=== PATIENT | male | born 1980 | race Caucasian/White ===

== ENCOUNTER 2021-08-18 19:23 | Inpatient (IN) | payer MEDICARE, SELFPAY ==
--- NOTE | ~2021-08-18 | CT_ITS ---
EXAMINATION: CT abdomen pelvis w con DATE: 08/18/2021 23:06 INDICATION: Abdominal pain TECHNIQUE: Computed tomography (CT) of the abdomen and pelvis was performed with 100 mL Omnipaque-350 intravenous contrast. Automated exposure control and iterative reconstruction technique were employe d. The dose-length product was 218.50 mGy-cm. COMPARISON: None FINDINGS: Lung bases are clear. Heart size is normal. No pericardial or pleural effusion. Layering fluid and de bris within either a moderate-sized sliding-type hiatal hernia or patulous distal esophagus. There is a small amount of surrounding ascites. There are some surgical clips along the intrathoracic stomach which is relatively decompressed. There is marked dilation of the colon proximal to the splenic flex ure which measures up to 13 cm in diameter. There is relatively abrupt transition near the level of t he caudal aspect of the spleen. There is however mild gaseous distention of the more distal colon whi ch appears shorter than typical suggesting prior partial colectomy/sigmoidectomy with anastomotic sut ure line. Small bowel is relatively decompressed. No pneumatosis, abscess or free intraperineal gas. The distended colon exerts mass effect upon the otherwise unremarkable liver and spleen. Multiple gal lstones within the gallbladder. Pancreas is unremarkable. 3.7 similar exophytic cyst at the upper shi e of the left kidney. Right kidney and bilateral adrenal glands are unremarkable. Bladder is normal. There is diffuse mild body wall and mesenteric edema. Mild likely physiologic anterior wedging at T11 and T12. Mild thoracic spondylosis. Small region of osteonecrosis at the anterosuperior left femoral head with more extensive osteonecrosis the anterosuperior and superior aspect of the right femoral h ead. IMPRESSION: 1. Prominent gaseous distention of the proximal to mid colon with relatively abrupt transition point at the proximal descending colon which raises concern for obstruction. Differential would include Ogi lvie syndrome. 2. Fluid and debris within either a moderate-sized sliding-type hiatal hernia versus patulous distal esophagus with small amount of surrounding ascites. 3. Cholelithiasis. Reviewed, dictated and finalized at location H. [employer] IMPRESSION: 1. Prominent gaseous distention of the proximal to mid colon with relatively ab rupt transition point at the proximal descending colon which raises concern for obstruction. Differential would include [place] syndrome. 2. Fluid and debris within either a moderate-sized sliding-type hiatal hernia v ersus patulous distal esophagus with small amount of surrounding ascites. 3. Cholelithiasis.
--- NOTE | ~2021-08-18 | XR_ITS ---
EXAMINATION: XR enema water soluble DATE: 08/19/2021 09:01 INDICATION: Obstruction of descending colon. TECHNIQUE: A displayer radiograph was obtained. A catheter was inserted into the patient's rectum. Contra st was infused by gravity. Fluoroscopic spot images and conventional radiographs were obtained. Fluor oscopy exposure time was 0.3 minutes. The total number of images was 27. COMPARISON: CT abdomen and pelvis 08/18/2021 FINDINGS: There is a focal stricture of the sigmoid colon. The colon is severely dilated proximal to the stricture. Contrast is able to pass the stricture. IMPRESSION: 1. Sigmoid volvulus. Reviewed, dictated and finalized at location A. [employer] IMPRESSION: 1. Sigmoid volvulus.
[2021-08-18 19:29] VITALS: BP 128/82; PULSE 66; RESP 16; TEMP 36.8; O2SAT 100
[2021-08-18 20:51] VITALS: BP 133/82; PULSE 88; RESP 20; O2SAT 100
--- NOTE | 2021-08-18 21:41 | ED.ABDPAIN ---
HPI - Abdominal Pain General Chief Complaint: Abdominal Pain Stated Complaint: abd pain Time Seen by Provider: 08/18/21 21:02 Source: patient and family (Mother) Mode of arrival: ambulatory Limitations: no limitations History of Present Illness HPI narrative: Patient is a 41-year-old male complaining of abdominal pain, 5 out of 10, lower abdominal area, dull aching, nonradiating accompanied by abdominal distention and nausea started today. Mother states that the patient has a history of bowel obstruction in the past. Last bowel movement was this morning. Patient denies any chest pain, shortness of breath, vomiting, diarrhea, urinary symptoms, fever or chills. Related Data Allergies Allergy/AdvReac Type Severity Reaction Status Date / Time No Known Allergies Allergy Unknown Verified 08/18/21 19:34 Review of Systems Review of Systems: All systems reviewed & are unremarkable except as noted in HPI and below Constitutional: Constitutional: Denies body ache(s), Denies chills, Denies excessive sweating, Denies fatigue, Denies fever(s), Denies headache(s), Denies lethargy, Denies malaise, Denies weakness and Denies weight loss Eyes: Eyes: Denies blurry vision, Denies change in vision and Denies loss of vision ENT: Denies dizziness, Denies ear discharge, Denies headache(s), Denies lip swelling, Denies epistaxis, Denies nasal congestion, Denies neck pain, Denies throat swelling and Denies tongue swelling Cardiovascular: Cardiovascular: Denies chest pain, Denies chest pain at rest, Denies chest pain with activity, Denies diaphoresis, Denies rapid heart rate, Denies edema, Denies irregular heart rhythm, Denies lightheadedness, Denies palpitations, Denies dyspnea and Denies dyspnea on exertion Respiratory: Respiratory: Denies chest congestion, Denies cough, Denies hemoptysis, Denies dyspnea and Denies dyspnea on exertion Gastrointestinal: Gastrointestinal: Denies melena, Denies hematochezia, Denies diarrhea, Denies vomiting and Denies hematemesis Musculoskeletal: Musculoskeletal: Denies abnormal gait, Denies deformity, Denies joint swelling, Denies limited range of motion, Denies neck pain and Denies numbness Neurologic: Denies Abnormal speech present, Denies abnormal gait, Denies confusion, Denies dizziness, Denies headache(s), Denies focal weakness, Denies loss of vision, Denies numbness, Denies Other visual disturbances, Denies Sensory deficit (Neuro) and Denies weakness Psychiatric: Psychiatric: Denies confusion, Denies depression, Denies auditory hallucinations, Denies homicidal ideation and Denies suicidal ideation Endocrine: Endocrine: Denies cold intolerance, Denies excessive sweating, Denies fatigue, Denies heat intolerance and Denies palpitations Hematologic/Lymphatic: Hematologic/Lymphatic: Denies easy bleeding and Denies easy bruising Allergic/Immunologic: Allergic/Immunologic: Denies lip swelling, Denies throat swelling and Denies tongue swelling PMFSH Comments Past medical history: Autism, obstruction Family history: None Social history: Non-smoker no EtOH or drug use Course Course Emergency Course: Patient reexamined at 12:30 AM, states that his pain is resolved. Denies any nausea or vomiting. Vital Signs Vital signs: Vital Signs Temperature 36.8 C 08/18/21 19:29 Pulse Rate 66 08/18/21 19:29 Respiratory Rate 16 08/18/21 19:29 Blood Pressure 128/82 08/18/21 19:29 Pulse Oximetry 100 08/18/21 19:29 Temperature 36.8 C 08/18/21 19:29 Pulse Rate 95 08/18/21 23:08 Respiratory Rate 20 08/18/21 23:08 Blood Pressure 127/79 08/18/21 23:08 Pulse Oximetry 100 08/18/21 23:08 MDM - Abdominal Pain MDM Narrative Medical decision making narrative: I reviewed his labs and his CT scan of abdomen pelvis. CBC within normal limits. Chemistry within normal limits except for slightly elevated lipase of 343. CT scan:IMPRESSION: 1. Prominent gaseous distention of the proximal to mid colon with relative
[2021-08-18 21:53] LABS: Basophils Percent Auto 0.2 % (0.2-1.2); Eosinophils Percent Auto 0.1 % (0-4.4); Hematocrit 36.4 % (42.0-52.0); Hemoglobin 12.2 g/dL (14.0-18.0); Immature Granulocyte Absolute 0.03 K/mm3 (0.00-0.031); Immature Granulocyte Percent A 0.3 % (0-0.5); Lymphocytes Absolute Auto 0.77 K/mm3 (0.9-3.2); Lymphocytes Percent Auto 8.4 % (18.3-44.2); Mean Corpuscular HGB Conc 33.5 g/dl (32-36); Mean Corpuscular Hemoglobin 30.5 pg (26-34); Mean Platelet Volume 10.2 fl (7.4-10.4); Monocytes Absolute Auto 0.5 K/mm3 (0.1-0.6); Monocytes Percent Auto 5.5 % (2.6-8.5); Neutrophils Absolute Auto 7.8 K/mm3 (1.3-6.7); Neutrophils Percent Auto 85.5 % (45.5-73.1); Platelet Count Result 206 k/mm3 (150-375); Red Cell Distribution Width 13.7 % (11.5-14.5); White Blood Count 9.1 K/mm3 (4.5-10.0)
[2021-08-18 22:04] VITALS: BP 131/72; PULSE 87; RESP 20; O2SAT 100
[2021-08-18] MEDS: SODIUM CHLORIDE 0.9% IV 1,000 ML 999 ML IV CONT (22:04)
[2021-08-18 22:07] LABS: Lactic Acid Reflex 1.1 mmol/L (0.7-2.1)
[2021-08-18 22:08] LABS: Alanine Aminotransferase 13 U/L (4-50); Albumin Level 4.5 g/dL (3.5-5.1); Alkaline Phosphatase 65 U/L (38-126); Anion Gap 8 mmol/L (8-16); Aspartate Amino Transferase 23 U/L (17-59); Bilirubin,Total 0.7 mg/dL (0.2-1.3); Blood Urea Nitrogen 14 mg/dL (9-20); Calcium 9.3 mg/dL (8.4-10.2); Carbon Dioxide 26 mmol/L (22-30); Chloride 99 mmol/L (98-107); Estimated CRCL calculation 72 ml/min; Estimated Glomerular Filt Rate > 60; Glucose 127 mg/dL (65-110); Lipase 343 U/L (23-300); Potassium 3.7 mmol/L (3.4-5.0); Sodium 133 mmol/L (137-145)
[2021-08-18 23:08] VITALS: BP 127/79; PULSE 95; RESP 20; O2SAT 100
[2021-08-18] MEDS: MORPHINE SULFATE (*CRX) 2 MG/ML INJ IV PUSH (23:09)
[2021-08-18] MEDS: PROMETHAZINE HCL 25 MG/ML AMPUL 12.5 MG IV PUSH (23:13)
[2021-08-19] VITALS (8 sets, daily range): BP systolic 92–134; BP diastolic 52–86; PULSE 66–103; RESP 15–20; TEMP 36.7–37.1; O2SAT 96–100; BMI 20.9
[2021-08-19] MEDS: LACTATED RINGERS 1,000 ML 125 ML IV CONT ×2 (01:28→11:43)
[2021-08-19 01:42] LABS: Add Urine Microscopic? YES; Appearance Urine Clear (Clear); Bilirubin Urine Negative (Negative); Blood Urine Negative (Negative); Color Urine Straw (Yellow); Glucose Urine UA Negative (Negative); Ketones Urine Trace mg/dL (Negative); Leukocyte Esterase Ur Negative LEU/UL (Negative); Mucus Urine Rare /lpf; Nitrate Urine Negative (Negative); Protein Urine Negative (Negative); RBC Urine 0-2 /hpf (0-2); Specific Grav Ur 1.026 (1.001-1.035); Squamous Epithelial Cell Urine Occasional /hpf (Few); Urobilinogen Urine Negative mg/dL (<2.0); WBC Urine 0-3 /hpf
--- NOTE | 2021-08-19 03:33 | PM.IMHP ---
H&P: HPI History of Present Illness Date/Time: 08/19/21 03:33 Chief Complaint: Abdominal pain Narrative: 41-year-old male with a past medical history of mild schizophrenia, autism spectrum disorder and prior esophageal surgeries and large bowel resection due to recurrent obstructions who presented to the ER from home due to abdominal pain. The patient reports that the pain started in the left lower abdomen and was a 5/10 in intensity. Pain was dull and aching in nature and did not radiate. It was accompanied by a couple of hours of proceeding abdominal distension. The pain is now down to a 1/10 in intensity. He denies any eliciting or relieving factors. He did have some nausea that occurred after he arrived to the ER but no active vomiting. His last bowel movement was on the morning of the and was normally formed without hematochezia or melena. He does take MiraLax and a daily fiber supplement to help maintain regular bowel movements. He does have frequent dyspepsia and takes [id number] Tagamet. His sister reports that the patient has been requesting Tums more frequently in recent months. Sister also reports that the patient has had gradual weight loss over the last couple of years. Since the onset of COVID and with family staying at home they have eliminated a lot of fast food and junk food from their diet. She reports that she brought her brother in when his abdomen went from relatively skinny appearance to being quite distended. Has not taken any medications for abdominal pain prior to coming to the hospital. He does feel somewhat short of breath due to his abdominal distension. He reports decreased urine output today but denies dysuria or hematuria. He has had difficulty with intermittent episodes of bloating. They had bought some Beano but had not started using the supplement. He has not had any cough, congestion, fevers or chills. He received his [employer] COVID booster in June. I did received permission for patient to discuss his care with his sister who is at bedside. The patient has lived with his sister and her since his mother several years ago. Patient does have chronically bad teeth with multiple dental caries. He is reluctant to go to a dentist. He has not seen a primary care physician in several years intakes elevates medications [id number]. He has a distant history of having cellulitis of his lower extremities. He has chronic lower extremity swelling that appears to be consistent with lymphedema. Review of Systems Review of Systems: 12 systems were reviewed with pertinent positives and negatives per HPI. Except as documented in the HPI, all other systems were reviewed and are negative. [facility] Past Medical History Medical History (Updated 08/19/21 @ 03:59 by Dorothy Camarena DO) Autism spectrum disorder Hiatal hernia with GERD Large bowel obstruction With what sounds like with due to volvulus Lymphedema of both lower extremities Schizophrenia Surgical History Surgical History (Updated 08/19/21 @ 03:49 by Dorothy Camarena DO) History of esophageal surgery (~2004) History of resection of large bowel (~2014) Family History Family History Mother , At age 69 CHF (congestive heart failure) Acute myocardial infarction Father , At age 53 Acute myocardial infarction Diabetes mellitus Social History Social History (Updated 08/19/21 @ 03:53 by Dorothy Camarena DO) Social History: He lives with his sister and [id number]. He has never been . He does not work and is on SSD. He is a lifelong nonsmoker and does not drink alcohol. Primary care physician: None Code status: Full code Surrogate decision maker: Sister Smoking status: Never smoker Alcohol intake: never Substance use: never Meds Home Medications and Allergies Home Medications Medication Instruc
--- NOTE | 2021-08-19 04:28 | ADMGEN ---
This patient, Jw Mccauley, was admitted to [facility] Surg Room 330-01. Patient/family oriented to hospital policies and general routines including ID bracelet, bed and alarms, visiting hours, pain management, procedures, bathroom and other care routines, personal items, smoking policy, room service/diet, and visiting hours. Information on how to activate the Rapid Response Team has been discussed. Patient/Family are encouraged to report perceived risks to care and to ask questions if they do not understand what they are told or what they should do.
[2021-08-19] MEDS: HYDROmorphone HCL INJ (*CRX) 1 MG/ML SYR 0.5 MG IV PUSH ×2 (05:54→10:33)
--- NOTE | 2021-08-19 07:21 | WPDGICN ---
Assessment and Plan Assessment and plan (1) Bowel obstruction: Qualifiers: Intestinal obstruction extent: unspecified extent Intestinal obstruction type: unspecified Qualified Code(s): K56.609 - Unspecified intestinal obstruction, unspecified as to partial versus complete obstruction Code(s): K56.609 - Unspecified intestinal obstruction, unspecified as to partial versus complete obstruction Status: Acute Assessment and Plan: CT scan it appears that he has a high-grade obstruction in the proximal descending colon. This would be an atypical location for a volvulus. It is surprising however that it came on rather acutely. He would probably benefit from Hypaque enema. It would be difficult to prepare him for colonoscopy, except with enemas (2) Hiatal hernia with GERD: Code(s): K44.9 - Diaphragmatic hernia without obstruction or gangrene; K21.9 - Gastro-esophageal reflux disease without esophagitis Status: Acute Assessment and Plan: we do not know the exact details of what was done but apparently he had a hiatal hernia repair. (3) Autism spectrum disorder: Code(s): F84.0 - Autistic disorder Status: Acute Assessment and Plan: He seems well adjusted effect is cognizant of his impairment, describing to me that it is hard for him to remember details due to his autism GI Consult Note Consult date/time: 08/19/21 07:21 HPI: wJ Mccauley is a 41 year old male who was admitted through the emergency room with suspected intestinal obstruction. He has a history of having had prior surgery on his colon, resection apparently due to some sort of obstruction. The patient states that he cannot recall the exact reason. He recalls that date precisely when he went into the hospital in November 2014 though not the details as to what were the diagnoses. His history rambles. he describes that day with familiarity, as his [id number] having had to leave town for a meeting.... He cannot recall having difficulty with bowel movements. According to the record however he does take MiraLax daily. He knows that he takes an antacid every day. He apparently did have a bowel movement yesterday morning according to the medical record with that history having been obtained from his sister. He does live with his sister due to his disability having autism and mild schizophrenia. He in fact point out to me that he has a tough time describing details because of his autism. He was eager to show me his poor dentition and the lymphedema is right lower extremity. He cannot recall however exactly what was wrong with his esophagus and whether or not he definitely had surgery for that Review of Systems Cardiovascular: Cardiovascular: Reports no additional cardiovascular complaints Comments: he states he does not have chest pain but that he was told that there might be something wrong with his heart Respiratory: Respiratory: Reports no additional respiratory complaints Gastrointestinal: Gastrointestinal: Reports as per [facility] Past Medical History Medical History (Updated 08/19/21 @ 07:27 by Chalo Nelson MD) Autism spectrum disorder Hiatal hernia with GERD Large bowel obstruction With what sounds like with due to volvulus Lymphedema of both lower extremities Schizophrenia Surgical History Surgical History History of esophageal surgery (~2004) History of resection of large bowel (~2014) Family History Family History Mother , At age 69 CHF (congestive heart failure) Acute myocardial infarction Father , At age 53 Acute myocardial infarction Diabetes mellitus Social History Social History Social History: He lives with his sister and [id number]. He has never been . He does not work and is on
[2021-08-19] MEDS: PANTOPRAZOLE SODIUM IV 40 MG VIAL IV PUSH ×2 (09:38→22:57)
[2021-08-19] MEDS: LACTATED RINGERS 1,000 ML 150 ML IV CONT (12:52)
--- NOTE | 2021-08-19 13:00 | PC.NURSE ---
To GI Lab per THADDEUS alva RAC. Report given to Treva FERNANDEZ.
--- NOTE | 2021-08-19 13:00 | PM.CNGS ---
Assessment and Plan Assessment and plan (1) Sigmoid volvulus: Code(s): K56.2 - Volvulus Status: Acute Assessment and Plan: I have reviewed the CT and Hypaque enema images. I discussed the findings with the patient and his sister. He has evidence of a sigmoid volvulus. This is apparently where he had a volvulus in the past as well and also had a resection for. I discussed his plan of care with Dr. Nelson and will plan to attempt endoscopic detorsion to allow for decompression of the obstructed colon. If this is successful, then we may be able to slowly prep the patient over the next couple days and perform a sigmoid colon resection. There is also the option of detorsion of the bowel and then allowing patient to gradually advance his diet and discharge home, but this may be risk for recurrent volvulus. If endoscopic detorsion is unsuccessful then he will most likely require emergent surgery. Will await endoscopic results and discuss further with patient and his sister about further treatment. I already discussed with them that repeat surgery will be more difficult due to the fact that he has already had this performed once the same disease process. (2) Autism spectrum disorder: Code(s): F84.0 - Autistic disorder Status: Acute History of Present Illness Consult details Consult date: 08/19/21 Reason for consult: abdominal pain Requesting physician: Mikhail Casas MD Narrative: This is a 41-year-old man who I am asked to see for a possible bowel obstruction. He presented to the emergency department overnight with. The acute onset of abdominal pain and bloating. He has noticed some slight progressive bloating over the past several days. He did have a bowel movement yesterday afternoon, but he states this was not very large. He denies any fevers chills. He has had some nausea but no vomiting. The patient has had symptoms like this in the past. In 2014 he was found to have a sigmoid volvulus and endoscopic detorsion was performed several times but then he eventually required surgical resection. The surgery was performed at [facility]. He also has history an esophageal surgery. He does not appear to have had any significant problems since 2014 until now. The patient has autism is well-functioning and able to give a fairly accurate history. His sister was available in the room to discuss history as well. Review of Systems Review of Systems: All systems reviewed & are unremarkable except as noted in HPI and below Constitutional: Constitutional: Denies chills and Denies fever(s) Eyes: Eyes: Denies change in vision ENT: Denies hearing loss, Denies neck pain and Denies sore throat Cardiovascular: Cardiovascular: Denies chest pain and Denies dyspnea Respiratory: Respiratory: Denies cough, Denies dyspnea and Denies wheezing Gastrointestinal: Gastrointestinal: Reports as per HPI Genitourinary: Genitourinary: Denies hematuria and Denies dysuria Musculoskeletal: Musculoskeletal: Denies arthralgias, Denies joint swelling and Denies neck pain Allergic/Immunologic: Allergic/Immunologic: Denies wheezing PMFSH Past Medical History Medical History Autism spectrum disorder Hiatal hernia with GERD Large bowel obstruction With what sounds like with due to volvulus Lymphedema of both lower extremities Schizophrenia Surgical History Surgical History History of esophageal surgery (~2004) History of resection of large bowel (~2014) Family History Family History Mother , At age 69 CHF (congestive heart failure) Acute myocardial infarction Father , At age 53 Acute myocardial infarction Diabetes mellitus Social History Social History Social Histo
--- NOTE | 2021-08-19 13:46 | WPDANESEPPF ---
Anes - Initial Pre Proc Eval Procedure: Operation Date: 08/19/21 13:00 Proposed Procedures p Colonoscopy - Chalo Nelson MD Date/Time: 08/19/21 13:46 Surgeon: Dorothy Camarena DO Pre Op Diagnosis: Bowel Obstruction Patient Data Age: 41 Gender: M Height: 1.73 m Weight: 62.5 kg Last Vital Signs Temp 98.7 F 08/19/21 12:50 Pulse 80 08/19/21 12:50 Resp 18 08/19/21 12:50 BP 134/76 08/19/21 12:50 Pulse Ox 100 08/19/21 12:50 Allergies Allergy/AdvReac Type Severity Reaction Status Date / Time No Known Allergies Allergy Unknown Verified 08/19/21 12:49 Home Medications Medication Instructions Recorded Confirmed Type dextrin 3 g PO BID 08/19/21 08/19/21 History polyethylene glycol 3350 [Miralax] 17 g PO BID 08/19/21 08/19/21 History Laboratory Tests 08/18/21 08/18/21 08/18/21 21:47 21:47 21:47 WBC 9.1 K/mm3 K/mm3 (4.5-10.0) RBC 4.00 M/mm3 L M/mm3 (4.6-6.20) Hgb 12.2 g/dL L g/dL (14.0-18.0) Hct 36.4 % L % (42.0-52.0) MCV 91.0 fl fl (80-100) MCH 30.5 pg pg (26-34) MCHC 33.5 g/dl g/dl (32-36) RDW 13.7 % % (11.5-14.5) Plt Count 206 k/mm3 k/mm3 (150-375) MPV 10.2 fl fl (7.4-10.4) Immature Gran % (Auto) 0.3 % % (0-0.5) Neut % (Auto) 85.5 % H % (45.5-73.1) Lymph % (Auto) 8.4 % L % (18.3-44.2) Osborne % (Auto) 5.5 % % (2.6-8.5) Eos % (Auto) 0.1 % % (0-4.4) Baso % (Auto) 0.2 % % (0.2-1.2) Lymph # (Auto) 0.77 K/mm3 L K/mm3 (0.9-3.2) Osborne # (Auto) 0.5 K/mm3 K/mm3 (0.1-0.6) Eos # (Auto) 0.0 K/mm3 K/mm3 (0-0.3) Baso # (Auto) 0.0 K/mm3 K/mm3 (0.0-0.1) Abs Immat Gran (auto) 0.03 K/mm3 K/mm3 (0.00-0.031) Absolute Neuts (auto) 7.8 K/mm3 H K/mm3 (1.3-6.7) Absolute Nucleated RBC 0.0 K/mm3 K/mm3 (0.0-0.012) Nucleated RBC % 0.0 % % (0.0-0.2) Sodium 133 mmol/L L mmol/L (137-145) Potassium 3.7 mmol/L mmol/L (3.4-5.0) Chloride 99 mmol/L mmol/L (98-107) Carbon Dioxide 26 mmol/L mmol/L (22-30) Anion Gap 8 mmol/L mmol/L (8-16) BUN 14 mg/dL mg/dL (9-20) Creatinine 0.90 mg/dL mg/dL (0.7-1.3) Estim Creat Clear Calc 72 ml/min ml/min Estimated GFR > 60 (59 - ) Glucose 127 mg/dL H mg/dL (65-110) Lactic Acid 1.1 mmol/L mmol/L (0.7-2.1) Calcium 9.3 mg/dL mg/dL (8.4-10.2) Total Bilirubin 0.7 mg/dL mg/dL (0.2-1.3) AST 23 U/L U/L (17-59) ALT 13 U/L U/L (4-50) Alkaline Phosphatase 65 U/L U/L (38-126) Total Protein 8.0 g/dL g/dL (6.3-8.2) Albumin 4.5 g/dL g/dL (3.5-5.1) Lipase 343 U/L H U/L (23-300) Urine Color Urine Appearance Urine pH Ur Specific [place] Urine Protein Urine Glucose (UA) Urine Ketones Ur Blood (Man) Urine Nitrate Urine Bilirubin Urine Urobilinogen Leukocyte Esterase Rfl Urine RBC Urine WBC Ur Squamous Epith Cells Urine Mucus 08/19/21 01:32 WBC RBC Hgb Hct MCV MCH MCHC RDW Plt Count MPV Immature Gran % (Auto) Neut % (Auto) Lymph % (Auto) Osborne % (Auto) Eos % (Auto) Baso % (Auto) Lymph # (Auto) Osborne # (Auto) Eos # (Auto) Baso # (Auto) Abs Immat Gran (auto) Absolute Neuts (auto) Absolute Nucleated RBC Nucleated RBC % Sodium Potassium Chloride Carbon Dioxide Anion Gap BUN Creatinine Estim Creat Clear Calc
--- NOTE | 2021-08-19 15:17 | PC.NURSE ---
Returned from OR per stretcher . Report received.
[2021-08-20] MEDS: LACTATED RINGERS 1,000 ML 125 ML IV CONT ×2 (01:30→11:32)
[2021-08-20 06:00] VITALS: BP 123/60; PULSE 73; RESP 18; TEMP 36.4; O2SAT 96
[2021-08-20 06:45] LABS: Hematocrit 32.9 % (42.0-52.0); Hemoglobin 11.3 g/dL (14.0-18.0); Mean Corpuscular HGB Conc 34.3 g/dl (32-36); Mean Corpuscular Hemoglobin 30.5 pg (26-34); Mean Corpuscular Volume 88.9 fl (80-100); Mean Platelet Volume 10.6 fl (7.4-10.4); Platelet Count Result 194 k/mm3 (150-375); Red Cell Distribution Width 13.4 % (11.5-14.5); White Blood Count 6.1 K/mm3 (4.5-10.0)
[2021-08-20 07:01] LABS: Alanine Aminotransferase 9 U/L (4-50); Albumin Level 3.3 g/dL (3.5-5.1); Alkaline Phosphatase 50 U/L (38-126); Anion Gap 8 mmol/L (8-16); Aspartate Amino Transferase 20 U/L (17-59); Blood Urea Nitrogen 9 mg/dL (9-20); Calcium 8.5 mg/dL (8.4-10.2); Carbon Dioxide 26 mmol/L (22-30); Chloride 102 mmol/L (98-107); Estimated CRCL calculation 92 ml/min; Estimated Glomerular Filt Rate > 60; Glucose 86 mg/dL (65-110); Potassium 3.2 mmol/L (3.4-5.0); Sodium 136 mmol/L (137-145)
[2021-08-20] MEDS: PANTOPRAZOLE SODIUM IV 40 MG VIAL IV PUSH (09:11)
--- NOTE | 2021-08-20 11:01 | PM.PNGS ---
Progress Note: A&P Assessment and Plan (1) Sigmoid volvulus: Code(s): K56.2 - Volvulus Status: Acute Assessment and Plan: Volvulus resolved with endoscopic detorsion. Discussed with patient and sister that repeat surgery will ultimately be recommended. Patient and sister would like to think about options before definitely making decision. Options include surgery during this hospitalization or early follow up for surgery in the next couple weeks. He could also follow up at [facility] where he had his previous surgery if they would prefer. (2) Autism spectrum disorder: Code(s): F84.0 - Autistic disorder Status: Acute Subjective Subjective Date/Time Seen: 08/20/21 11:01 Interval history: Doing well today. Tolerating clears. Bowels moving and passing flatus. No abdominal pain. Exam GI: Inspection: other (much less distended) GI Palp: Yes Soft to palpation, No Tenderness to palpation present (GI) and No Guarding due to palpation present (GI) Auscultation: normal bowel sounds Objective Data Vital Signs Vital Signs: Vital Signs - 24 hr 08/19/21 12:50 08/19/21 14:23 08/19/21 14:33 Temperature 37.1 C Pulse Rate 80 71 79 Respiratory Rate 18 18 16 Blood Pressure 134/76 92/52 L 94/58 L Pulse Oximetry 100 96 98 08/19/21 14:43 08/19/21 22:00 08/20/21 06:00 Temperature 36.7 C 36.4 C L Pulse Rate 77 66 73 Respiratory Rate 15 18 18 Blood Pressure 105/64 116/66 123/60 Pulse Oximetry 100 100 96 Intake/Output Intake/Output: Intake & Output 08/17/21 08/18/21 08/19/21 08/20/21 23:59 23:59 23:59 23:59 Intake Total 1000 2450 660 Balance 1000 2450 660 Meds/Results Medications: Active Medications Generic Name Dose Route Start Last Admin Trade Name Freq PRN Reason Stop Dose Admin Hydromorphone HCl 0.5 mg 08/19/21 01:01 08/19/21 10:33 Hydromorphone Hcl Inj (*Crx) 1 Mg/Ml Syr IV PUSH 0.5 mg Q4H PRN Administration Pain Rated 7-10 Lactated Ringer's 1,000 mls @ 125 mls/hr 08/19/21 01:05 08/20/21 01:30 Lr - Lactated Ringers Iv IV CONT 125 mls/hr .Q8H ELLA Administration Ondansetron HCl 4 mg 08/19/21 01:01 Ondansetron Inj 4 Mg/2 Ml Vial IV PUSH Q4H PRN Nausea Pantoprazole Sodium 40 mg 08/19/21 09:00 08/20/21 09:11 Pantoprazole Sodium Iv 40 Mg Vial IV PUSH 40 mg Q12HR ELLA Administration Radiology Results: ITS Impressions Abdomen/Pelvis CT 08/18/21 23:13 IMPRESSION: 1. Prominent gaseous distention of the proximal to mid colon with relatively abrupt transition point at the proximal descending colon which raises concern for obstruction. Differential would include [place] syndrome. 2. Fluid and debris within either a moderate-sized sliding-type hiatal hernia versus patulous distal esophagus with small amount of surrounding ascites. 3. Cholelithiasis. Enema w/Water Soluble 08/19/21 09:07 IMPRESSION: 1. Sigmoid volvulus. Labs Labs: Laboratory Results - last 24 hr 08/20/21 08/20/21 05:51 05:51 WBC 6.1 RBC 3.70 L Hgb 11.3 L Hct 32.9 L MCV 88.9 MCH 30.5 MCHC 34.3 RDW 13.4 Plt Count 194 MPV 10.6 H Sodium 136 L Potassium 3.2 L Chloride 102 Carbon Dioxide 26 Anion Gap 8 BUN 9 D Creatinine 0.80 Estim Creat Clear Calc 92 Estimated GFR > 60 Glucose 86 Calcium 8.5 Total Bilirubin 1.0 AST 20 ALT 9 Alkaline Phosphatase 50 Total Protein 6.0 L Albumin 3.3 L Quality VTE Prophylaxis VTE prophylaxis: mechanical ordered
[2021-08-20] MEDS: ERYTHROMYCIN 250 MG TABLET 1000 MG PO ×2 (13:49→15:49)
[2021-08-20 14:00] VITALS: BP 122/75; PULSE 70; RESP 14; O2SAT 100
[2021-08-20] MEDS: NEOMYCIN SULFATE 500 MG TAB 1000 MG PO ×2 (15:48→19:49)
--- NOTE | 2021-08-20 17:42 | PM.IMPN ---
Progress Note: A&P Assessment and Plan (1) Bowel obstruction: Qualifiers: Intestinal obstruction extent: unspecified extent Intestinal obstruction type: unspecified Qualified Code(s): K56.609 - Unspecified intestinal obstruction, unspecified as to partial versus complete obstruction Code(s): K56.609 - Unspecified intestinal obstruction, unspecified as to partial versus complete obstruction Status: Acute (2) Hiatal hernia with GERD: Code(s): K44.9 - Diaphragmatic hernia without obstruction or gangrene; K21.9 - Gastro-esophageal reflux disease without esophagitis Status: Acute Additional Plan The patient has obstruction of the large intestine. He is currently NPO and on IV fluids. General surgery and Gastroenterology have been consulted. The patient does have evidence of a hiatal hernia and has a history of prior esophageal surgery. Sounds as if he has had increasing frequency of GERD symptoms. Will place patient on Protonix IV b.i.d.. Patient has been admitted as observation status. Subjective Date/time seen: 08/20/21 17:42 Interval history: I agree with current assessment and plan. Will continue to monitor. Objective Data Vital Signs Vital Signs: Vital Signs - 24 hr 08/19/21 22:00 08/20/21 06:00 Temperature 36.7 C 36.4 C L Pulse Rate 66 73 Respiratory Rate 18 18 Blood Pressure 116/66 123/60 Pulse Oximetry 100 96 Intake/Output Intake/Output: Intake & Output 08/17/21 08/18/21 08/19/21 08/20/21 23:59 23:59 23:59 23:59 Intake Total 1000 2450 1660 Balance 1000 2450 1660 Meds/Results Medications: Active Medications Generic Name Dose Route Start Last Admin Trade Name Freq PRN Reason Stop Dose Admin Bisacodyl 10 mg 08/21/21 14:00 Bisacodyl 5 Mg Tablet Ec PO 08/21/21 14:01 ONCE ONE Erythromycin 1,000 mg 08/20/21 14:00 08/20/21 15:49 Erythromycin 250 Mg Tablet PO 08/21/21 00:01 1,000 mg TID@00,14,15 ELLA Administration Hydromorphone HCl 0.5 mg 08/19/21 01:01 08/19/21 10:33 Hydromorphone Hcl Inj (*Crx) 1 Mg/Ml Syr IV PUSH 0.5 mg Q4H PRN Administration Pain Rated 7-10 Lactated Ringer's 1,000 mls @ 125 mls/hr 08/19/21 01:05 08/20/21 11:32 Lr - Lactated Ringers Iv IV CONT 125 mls/hr .Q8H ELLA Administration Lactated Ringer's 1,000 mls @ 80 mls/hr 08/21/21 07:00 Lr - Lactated Ringers Iv IV CONT .[id number] ELLA Metronidazole 500 mg in 100 mls @ 100 mls/hr 08/21/21 14:00 Flagyl 500 Mg/Iso Soln 100 Ml IVPB 08/21/21 14:59 ONCE ONE Cefazolin Sodium 2 gm in 50 mls @ 100 mls/hr 08/21/21 14:00 Ancef 2 Gm/D5w 50 Ml IVPB 08/21/21 14:29 ONCE ONE Neomycin Sulfate 1,000 mg 08/20/21 14:00 08/20/21 15:48 Neomycin Sulfate 500 Mg Tab PO 08/21/21 00:01 1,000 mg TID@00,14,15 ELLA Administration Ondansetron HCl 4 mg 08/19/21 01:01 Ondansetron Inj 4 Mg/2 Ml Vial IV PUSH Q4H PRN Nausea Pantoprazole Sodium 40 mg 08/19/21 09:00 08/20/21 09:11 Pantoprazole Sodium Iv 40 Mg Vial IV PUSH 40 mg Q12HR ELLA Administration Radiology Results: ITS Impressions Abdomen/Pelvis CT 08/18/21 23:13 IMPRESSION: 1. Prominent gaseous distention of the proximal to mid colon with relatively abrupt transition point at the proximal descending colon which raises concern for obstruction. Differential would include Greg syndrome. 2. Fluid and debris within either a moderate-sized sliding-type hiatal hernia versus patulous distal esophagus with small amount of surrounding ascites. 3. Cholelithiasis. Enema w/Water Soluble 08/19/21 09:07 IMPRESSION: 1. Sigmoid volvulus. Labs Labs: Laboratory Results - last 24 hr 08/20/21 08/20/21 05:51 05:51 WBC 6.1 RBC 3.70 L Hgb 11.3 L Hct 32.9 L MCV 88.9 MCH 30.5 MCHC 34.3 RDW 13.4 Plt Count 194 MPV 10.6 H Sodium 136 L Potassium 3.2 L Chloride 102 Carbon Dioxide 26 Anion Gap 8 BUN 9 D Creati
[2021-08-20] MEDS: polyethylene glycoL 3350 238 GM BOTTLE PO (18:43)
[2021-08-20 22:00] VITALS: BP 121/77; PULSE 74; RESP 18; TEMP 36.3; O2SAT 100
[2021-08-21] VITALS (11 sets, daily range): BP systolic 99–126; BP diastolic 62–89; PULSE 44–84; RESP 12–18; TEMP 36.2–36.8; O2SAT 96–100
[2021-08-21] MEDS: ERYTHROMYCIN 250 MG TABLET 500 MG PO (00:57)
[2021-08-21] MEDS: NEOMYCIN SULFATE 500 MG TAB 1000 MG PO (00:57)
[2021-08-21] MEDS: PANTOPRAZOLE SODIUM IV 40 MG VIAL IV PUSH ×2 (00:57→20:31)
[2021-08-21] MEDS: LACTATED RINGERS 1,000 ML 125 ML IV CONT (05:10)
[2021-08-21] MEDS: ACETAMINOPHEN 500 MG TABLET 1000 MG PO (06:57)
[2021-08-21] MEDS: KETOROLAC 15 MG/ML VIAL (*BKC) IV PUSH (06:57)
[2021-08-21] MEDS: LACTATED RINGERS 1,000 ML 30 ML IV CONT ×2 (07:00→10:11)
[2021-08-21 07:04] LABS: Hematocrit 37.1 % (42.0-52.0); Hemoglobin 12.7 g/dL (14.0-18.0); Mean Corpuscular HGB Conc 34.2 g/dl (32-36); Mean Corpuscular Hemoglobin 30.6 pg (26-34); Mean Corpuscular Volume 89.4 fl (80-100); Mean Platelet Volume 10.2 fl (7.4-10.4); Platelet Count Result 240 k/mm3 (150-375); Red Blood Count 4.15 M/mm3 (4.6-6.20); Red Cell Distribution Width 13.7 % (11.5-14.5); White Blood Count 6.5 K/mm3 (4.5-10.0)
--- NOTE | 2021-08-21 07:11 | WPDANESEPPF ---
Anes - Initial Pre Proc Eval Procedure: Operation Date: 08/19/21 13:00 Proposed Procedures p Colonoscopy - Chalo Nelson MD Operation Date: 08/21/21 07:30 Proposed Procedures p Hand Assisted Laparoscopic Sigmoid Colectomy,Possible Open - Wilberto Henry DO Date/Time: 08/21/21 07:11 Surgeon: Dorothy Camarena DO Pre Op Diagnosis: Bowel Obstruction Patient Data Age: 41 Gender: M Height: 1.73 m Weight: 62.5 kg Last Vital Signs Temp 36.3 C L 08/20/21 22:00 Pulse 74 08/20/21 22:00 Resp 18 08/20/21 22:00 BP 121/77 08/20/21 22:00 Pulse Ox 100 08/20/21 22:00 Allergies Allergy/AdvReac Type Severity Reaction Status Date / Time No Known Allergies Allergy Unknown Verified 08/19/21 12:49 Home Medications Medication Instructions Recorded Confirmed Type dextrin 3 g PO BID 08/19/21 08/19/21 History polyethylene glycol 3350 [Miralax] 17 g PO BID 08/19/21 08/19/21 History Laboratory Tests 08/21/21 08/21/21 06:34 06:34 WBC 6.5 K/mm3 K/mm3 (4.5-10.0) RBC 4.15 M/mm3 L M/mm3 (4.6-6.20) Hgb 12.7 g/dL L g/dL (14.0-18.0) Hct 37.1 % L % (42.0-52.0) MCV 89.4 fl fl (80-100) MCH 30.6 pg pg (26-34) MCHC 34.2 g/dl g/dl (32-36) RDW 13.7 % % (11.5-14.5) Plt Count 240 k/mm3 k/mm3 (150-375) MPV 10.2 fl fl (7.4-10.4) Sodium Pending Potassium Pending Chloride Pending Carbon Dioxide Pending Anion Gap Pending BUN Pending Creatinine Pending Estim Creat Clear Calc Pending Estimated GFR Pending Glucose Pending Calcium Pending Patient hx anesthesia problems: none Family hx anesthesia problems: none Results Review: All pre-operative results and documents have been reviewed as part of the pre-operative evaluation. [facility] Past Medical History Medical History Autism spectrum disorder Hiatal hernia with GERD Large bowel obstruction With what sounds like with due to volvulus Lymphedema of both lower extremities Schizophrenia Surgical History Surgical History History of esophageal surgery (~2004) History of resection of large bowel (~2014) Family History Family History Mother , At age 69 CHF (congestive heart failure) Acute myocardial infarction Father , At age 53 Acute myocardial infarction Diabetes mellitus Social History Social History Social History: He lives with his sister and [id number]. He has never been . He does not work and is on SSD. He is a lifelong nonsmoker and does not drink alcohol. Primary care physician: None Code status: Full code Surrogate decision maker: Sister Smoking status: Never smoker Alcohol intake: never Substance use: never Substance use type: does not use Spiritual care concerns: No Anes - Eval Final PreProcedure Day of Procedure 08/21/21 07:11 Patient weight: normal Heart: regular rate and rhythm Lungs: clear to auscultation Airway: Mallampati scale Neurological: alert and oriented Last oral intake: >/= 8 hours ASA classification: III Emergent: no Anesthetic plan: proceed Anesthesia type and monitoring: general ETT and standard monitoring Results Review: All pre-operative results and documents have been reviewed as part of the pre-operative evaluation. Informed Consent: The patient's anesthetic plan and its attendant risks and benefits were discussed with the patient/family/POA. Questions were solicited and answers provided to the satisfaction of the patient/family/POA.
[2021-08-21 07:16] LABS: Potassium 3.6 mmol/L (3.4-5.0)
--- NOTE | 2021-08-21 07:17 | WPDHPUPDATE1 ---
History and Physical Update Update Date/Time: 08/21/21 07:17 History and Physical has been reviewed, including an updated exam of the patient. There are NO changes in the patient's condition. Risks, benefits, and alternatives have been discussed and questions answered. Patient agrees to proceed with procedure.
[2021-08-21 07:36] LABS: Anion Gap 10 mmol/L (8-16); Blood Urea Nitrogen 10 mg/dL (9-20); Calcium 9.4 mg/dL (8.4-10.2); Carbon Dioxide 24 mmol/L (22-30); Chloride 103 mmol/L (98-107); Estimated CRCL calculation 82 ml/min; Estimated Glomerular Filt Rate > 60; Glucose 101 mg/dL (65-110); Sodium 137 mmol/L (137-145)
[2021-08-21] MEDS: ceFAZolin 2 GM/D5W 50 ML 2 GM/50 ML BAG IVPB (07:39)
[2021-08-21] MEDS: metroNIDAZOLE 500 MG/ISO 100ML 500 MG/100 ML BAG 100 MG IVPB (07:48)
--- NOTE | 2021-08-21 09:56 | W.PM.PROC2 ---
Procedure Note - Detailed Date of Procedure 08/21/21 Pre-op Diagnosis Descending colon volvulus Post-op Diagnosis other (Descending colon volvulus, incisional hernia) Procedure Performed 1. Diagnostic laparoscopy 2. Open left hemicolectomy with colocolonic anastomosis 3. Open incisional hernia repair Surgeon Wilberto Henry DO Patternmaker Grader Nnamdi Curtis MD Anesthesia general and local (Exparel) Indications This is a 41-year-old man who presented to the emergency department with acute onset of abdominal pain and bloating. Workup in the emergency department included a CT of his abdomen and pelvis which showed evidence of a large bowel obstruction. He does have a history of sigmoid volvulus past and underwent sigmoid colectomy in 2014. He was admitted for further workup and treatment. Hypaque enema showed evidence of a volvulus. He then had endoscopic detorsion which allowed decompression of the bowel. Discussions were then made about the risk of future recurrences and patient wished to proceed with surgical intervention. Decision was made to proceed with hand assisted laparoscopic sigmoid colectomy, possible open. Findings Upon placing my ports laparoscopically and inspecting the abdominal cavity, patient was found to have an adhesive band going up to the upper midline. He had very redundant descending colon and transverse colon which was apparently twisting around this adhesive. This appeared to be the cause of the volvulus and this area was also involved with his incisional hernia in the upper midline. Decision was made to convert to open surgery. The adhesive band was taken down with LigaSure bipolar cautery and this appeared to be a twisted segment his omentum coming off the transverse colon. The patient had extremely dilated and redundant transverse colon all the way down to the mid descending colon. The distal descending colon and rectum appeared relatively decompressed and the previous anastomosis appeared healthy. Decision was made to resect from the mid transverse colon around to the mid descending colon. Total length of resected colon was about 2 ft. There appeared to be about 3-4 feet of healthy appearing colon remaining. The upper midline incisional hernia was also repaired. This appeared to be containing some preperitoneal fat and the adhesive band. Description of Procedure Procedure as well as risks, benefits, and alternatives were discussed with the patient. Written consent was obtained and placed in chart prior to procedure. Patient was brought back to surgical suite. He was placed supine on operating table. Time-out was done to confirm patient procedure. He was then intubated by the anesthesia department. He was then repositioned into dorsal lithotomy position. His rectum was irrigated with sterile saline and then with Betadine. His perirectal area was prepped and draped in sterile fashion using Betadine prep and the abdomen was prepped and draped in sterile fashion using chlorhexidine prep. A 7 cm vertical midline incision was made centered on the umbilicus using a 15 blade scalpel. Electrocautery was used for hemostasis and for dissection down to the fascia. The fascia was then incised with electrocautery and then the fascia with was lifted anteriorly and the peritoneum was entered using electrocautery. The Jamison wound protector was then placed followed by the GelPort with a 5 mm trocar placed through it. Carbon dioxide insufflation was then used to create a pneumoperitoneum the camera was inserted the abdomen was inspected. The patient was placed in Trendelenburg position. A 5 mm port was placed in the suprapubic region and midline under direct visualization, a 12 mm port was placed in the right lower quadrant under direct visualization and another 5 mm port was placed in the right upper quadrant under direct visualization. Exparel was infiltrated along the lateral abdomen to perform a transversus abdominis plane block. I th
--- NOTE | 2021-08-21 15:20 | PM.IMPN ---
Progress Note: A&P Assessment and Plan (1) Bowel obstruction: Qualifiers: Intestinal obstruction extent: unspecified extent Intestinal obstruction type: unspecified Qualified Code(s): K56.609 - Unspecified intestinal obstruction, unspecified as to partial versus complete obstruction Code(s): K56.609 - Unspecified intestinal obstruction, unspecified as to partial versus complete obstruction Status: Acute Assessment and Plan: 08/21/2021 interval history, patient presented with abdominal pain and found to have descending colon volvulus, incisional hernia, had laparoscopy open left hemicolectomy with chronic anastomosis, and repair of open incisional hernia, patient just returned from the surgery, is feeling little better denies any abdominal pain nausea or vomiting, will continue to monitor and follow surgeon instruction and further recommendation to follow. (2) Hiatal hernia with GERD: Code(s): K44.9 - Diaphragmatic hernia without obstruction or gangrene; K21.9 - Gastro-esophageal reflux disease without esophagitis Status: Acute Additional Plan The patient has obstruction of the large intestine. He is currently NPO and on IV fluids. General surgery and Gastroenterology have been consulted. The patient does have evidence of a hiatal hernia and has a history of prior esophageal surgery. Sounds as if he has had increasing frequency of GERD symptoms. Will place patient on Protonix IV b.i.d.. Patient has been admitted as observation status. Subjective Date/time seen: 08/21/21 15:20 Chief Complaint: Abdominal pain HPI: Narrative: 41-year-old male with a past medical history of mild schizophrenia, autism spectrum disorder and prior esophageal surgeries and large bowel resection due to recurrent obstructions who presented to the ER from home due to abdominal pain. The patient reports that the pain started in the left lower abdomen and was a 5/10 in intensity. Pain was dull and aching in nature and did not radiate. It was accompanied by a couple of hours of proceeding abdominal distension. The pain is now down to a 1/10 in intensity. He denies any eliciting or relieving factors. He did have some nausea that occurred after he arrived to the ER but no active vomiting. His last bowel movement was on the morning of the and was normally formed without hematochezia or melena. He does take MiraLax and a daily fiber supplement to help maintain regular bowel movements. He does have frequent dyspepsia and takes [id number] Tagamet. His sister reports that the patient has been requesting Tums more frequently in recent months. Sister also reports that the patient has had gradual weight loss over the last couple of years. Since the onset of COVID and with family staying at home they have eliminated a lot of fast food and junk food from their diet. She reports that she brought her brother in when his abdomen went from relatively skinny appearance to being quite distended. Has not taken any medications for abdominal pain prior to coming to the hospital. He does feel somewhat short of breath due to his abdominal distension. He reports decreased urine output today but denies dysuria or hematuria. He has had difficulty with intermittent episodes of bloating. They had bought some Beano but had not started using the supplement. He has not had any cough, congestion, fevers or chills. He received his [employer] COVID booster in June. I did received permission for patient to discuss his care with his sister who is at bedside. The patient has lived with his sister and her since his mother several years ago. Patient does have chronically bad teeth with multiple dental caries. He is reluctant to go to a dentist. He has not seen a primary care physician in several years intakes elevates medications [id number]. He has a distant history of having cellulitis of his lower extremities. He has chronic
[2021-08-21] MEDS: BISACODYL 5 MG TABLET EC 10 MG PO (15:36)
[2021-08-21] MEDS: LACTATED RINGERS 1,000 ML 100 ML IV CONT (18:20)
[2021-08-21] MEDS: ACETAMINOPHEN 500 MG TABLET PO (18:21)
[2021-08-22] VITALS: BP 122/86; PULSE 88; RESP 18; TEMP 36.7; O2SAT 100
[2021-08-22] MEDS: ACETAMINOPHEN 500 MG TABLET PO ×4 (00:10→18:03)
[2021-08-22] MEDS: MORPHINE SULFATE (*CRX) 2 MG/ML INJ IV PUSH (02:18)
[2021-08-22 04:00] VITALS: BP 116/63; PULSE 80; RESP 18; TEMP 36.7; O2SAT 98
[2021-08-22] MEDS: MORPHINE SULFATE (*CRX) 4 MG/ML INJ IV PUSH (04:25)
[2021-08-22] MEDS: LACTATED RINGERS 1,000 ML 100 ML IV CONT ×2 (04:28→14:48)
[2021-08-22 06:43] LABS: Basophils Percent Auto 0.1 % (0.2-1.2); Hematocrit 30.8 % (42.0-52.0); Hemoglobin 10.6 g/dL (14.0-18.0); Immature Granulocyte Absolute 0.03 K/mm3 (0.00-0.031); Immature Granulocyte Percent A 0.2 % (0-0.5); Lymphocytes Percent Auto 14.4 % (18.3-44.2); Mean Corpuscular HGB Conc 34.4 g/dl (32-36); Mean Corpuscular Hemoglobin 30.2 pg (26-34); Mean Corpuscular Volume 87.7 fl (80-100); Mean Platelet Volume 9.8 fl (7.4-10.4); Monocytes Absolute Auto 0.7 K/mm3 (0.1-0.6); Monocytes Percent Auto 5.4 % (2.6-8.5); Neutrophils Percent Auto 79.9 % (45.5-73.1); Platelet Count Result 254 k/mm3 (150-375); Red Blood Count 3.51 M/mm3 (4.6-6.20); Red Cell Distribution Width 13.5 % (11.5-14.5); White Blood Count 12.5 K/mm3 (4.5-10.0)
[2021-08-22 07:12] LABS: Anion Gap 5 mmol/L (8-16); Blood Urea Nitrogen 11 mg/dL (9-20); Calcium 8.5 mg/dL (8.4-10.2); Carbon Dioxide 26 mmol/L (22-30); Chloride 99 mmol/L (98-107); Estimated CRCL calculation 83 ml/min; Estimated Glomerular Filt Rate > 60; Glucose 115 mg/dL (65-110); Magnesium 1.5 mg/dL (1.6-2.3); Potassium 3.7 mmol/L (3.4-5.0); Sodium 130 mmol/L (137-145)
--- NOTE | 2021-08-22 08:27 | WPDANESPN ---
Anes - Prog Note Post-Op Date/Time: 08/22/21 08:27 Cardiovascular status: normal Respiratory status: normal Airway patency: baseline Mental status: baseline Post-Op hydration status: normal Vital Signs: Last Vital Signs Temp 36.7 C 08/22/21 04:00 Pulse 80 08/22/21 04:00 Resp 18 08/22/21 04:00 BP 116/63 08/22/21 04:00 Pulse Ox 98 08/22/21 04:00 Pain Score (VAS): 5 I/O: Intake & Output 08/21/21 08/22/21 08/22/21 23:59 07:59 15:59 Intake Total 610 1400 Output Total 1500 900 Balance -890 500 Laboratory Tests 08/22/21 06:28 08/22/21 06:28 08/22/21 08/22/21 06:28 06:28 WBC 12.5 H RBC 3.51 L Hgb 10.6 L Hct 30.8 L MCV 87.7 MCH 30.2 MCHC 34.4 RDW 13.5 Plt Count 254 MPV 9.8 Immature Gran % (Auto) 0.2 Neut % (Auto) 79.9 H Lymph % (Auto) 14.4 L Saunders % (Auto) 5.4 Eos % (Auto) 0.0 Baso % (Auto) 0.1 L Lymph # (Auto) 1.80 Saunders # (Auto) 0.7 H Eos # (Auto) 0.0 Baso # (Auto) 0.0 Abs Immat Gran (auto) 0.03 Absolute Neuts (auto) 10.0 H Absolute Nucleated RBC 0.0 Nucleated RBC % 0.0 Sodium 130 L Potassium 3.7 Chloride 99 Carbon Dioxide 26 Anion Gap 5 L BUN 11 Creatinine 0.90 Estim Creat Clear Calc 83 Estimated GFR > 60 Glucose 115 H Calcium 8.5 Magnesium 1.5 L Post-procedural complaints: none Patient Feedback: Patient satisfied with anesthetic care.
[2021-08-22] MEDS: MAGNESIUM SULF 2 GM/WATER 50ML 2 GM/50 ML BAG IVPB (09:35)
[2021-08-22] MEDS: MAGNESIUM OXIDE 400 MG TABLET PO (09:38)
[2021-08-22] MEDS: ENOXAPARIN 40 MG/0.4 ML SYRINGE SUB-Q (09:38)
[2021-08-22] MEDS: PANTOPRAZOLE SODIUM IV 40 MG VIAL IV PUSH ×2 (09:39→22:34)
--- NOTE | 2021-08-22 12:45 | PM.PNGS ---
Progress Note: A&P Assessment and Plan (1) Sigmoid volvulus: Code(s): K56.2 - Volvulus Status: Acute Assessment and Plan: Continue clears today. Increase activity. Await return of bowel function. Subjective Subjective Date/Time Seen: 08/22/21 12:45 Interval history: Patient maybe passing a little flatus. No BM yet. No nausea or vomiting. Exam GI: Inspection: distended and incision (dressing dry) GI Palp: Yes Soft to palpation and Yes Tenderness to palpation present (GI) (incisional) Percussion: Yes tympanic to percussion Objective Data Vital Signs Vital Signs: Vital Signs - 24 hr 08/21/21 13:01 08/21/21 14:31 08/21/21 20:00 Temperature 36.8 C 36.8 C 36.8 C Pulse Rate 73 62 84 Respiratory Rate 16 16 18 Blood Pressure 107/62 126/70 110/71 Pulse Oximetry 96 100 98 08/22/21 00:00 08/22/21 04:00 Temperature 36.7 C 36.7 C Pulse Rate 88 80 Respiratory Rate 18 18 Blood Pressure 122/86 116/63 Pulse Oximetry 100 98 Intake/Output Intake/Output: Intake & Output 08/19/21 08/20/21 08/21/21 08/22/21 23:59 23:59 23:59 23:59 Intake Total 2450 3410 1310 1760 Output Total 1610 900 Balance 2450 3410 -300 860 Meds/Results Medications: Active Medications Generic Name Dose Route Start Last Admin Trade Name Freq PRN Reason Stop Dose Admin Acetaminophen 500 mg 08/21/21 13:00 08/22/21 12:20 Acetaminophen 500 Mg Tablet PO 500 mg Q6H ELLA Administration Enoxaparin Sodium 40 mg 08/22/21 09:00 08/22/21 09:38 Enoxaparin 40 Mg/0.4 Ml Syringe SUB-Q 40 mg DAILY ELLA Administration Hydromorphone HCl 0.5 mg 08/19/21 01:01 08/19/21 10:33 Hydromorphone Hcl Inj (*Crx) 1 Mg/Ml Syr IV PUSH 0.5 mg Q4H PRN Administration Pain Rated 7-10 Lactated Ringer's 1,000 mls @ 100 mls/hr 08/21/21 12:46 08/22/21 04:28 Lr - Lactated Ringers Iv IV CONT 100 mls/hr .Q10H ELLA Administration Magnesium Oxide 400 mg 08/22/21 09:00 08/22/21 09:38 Magnesium Oxide 400 Mg Tablet PO 400 mg QAM ELLA Administration Morphine Sulfate 2 mg 08/21/21 12:46 08/22/21 02:18 Morphine Sulfate (*Crx) 2 Mg/Ml Inj IV PUSH 2 mg Q2H PRN Administration Pain Rated 4-6 Morphine Sulfate 4 mg 08/21/21 12:46 08/22/21 04:25 Morphine Sulfate (*Crx) 4 Mg/Ml Inj IV PUSH 4 mg Q2H PRN Administration Pain Rated 7-10 Ondansetron HCl 4 mg 08/19/21 01:01 Ondansetron Inj 4 Mg/2 Ml Vial IV PUSH Q4H PRN Nausea Pantoprazole Sodium 40 mg 08/19/21 09:00 08/22/21 09:39 Pantoprazole Sodium Iv 40 Mg Vial IV PUSH 40 mg Q12HR ELLA Administration Radiology Results: ITS Impressions Abdomen/Pelvis CT 08/18/21 23:13 IMPRESSION: 1. Prominent gaseous distention of the proximal to mid colon with relatively abrupt transition point at the proximal descending colon which raises concern for obstruction. Differential would include Richards syndrome. 2. Fluid and debris within either a moderate-sized sliding-type hiatal hernia versus patulous distal esophagus with small amount of surrounding ascites. 3. Cholelithiasis. Enema w/Water Soluble 08/19/21 09:07 IMPRESSION: 1. Sigmoid volvulus. Labs Labs: Laboratory Results - last 24 hr 08/22/21 08/22/21 06:28 06:28 WBC 12.5 H RBC 3.51 L Hgb 10.6 L Hct 30.8 L MCV 87.7 MCH 30.2 MCHC 34.4 RDW 13.5 Plt Count 254 MPV 9.8 Immature Gran % (Auto) 0.2 Neut % (Auto) 79.9 H Lymph % (Auto) 14.4 L School[place] % (Auto) 5.4 Eos % (Auto) 0.0 Baso % (Auto) 0.1 L Lymph # (Auto) 1.80 [place] # (Auto) 0.7 H Eos # (Auto) 0.0 Baso # (Auto) 0.0 Abs Immat Gran (auto) 0.03 Absolute Neuts (auto) 10.0 H Absolute Nucleated RBC 0.0 Nucleated RBC % 0.0 Sodium 130 L Potassium 3.7 Chloride 99 Carbon Dioxide 26 Anion Gap 5 L BUN 11 Creatinine 0.90 Estim Creat Clear Calc 83 Estimated GFR > 60 Glucose 115 H Calcium 8.5 Magnesium 1.5 L Q
--- NOTE | 2021-08-22 12:58 | PM.IMPN ---
Progress Note: A&P Assessment and Plan (1) Bowel obstruction: Qualifiers: Intestinal obstruction extent: unspecified extent Intestinal obstruction type: unspecified Qualified Code(s): K56.609 - Unspecified intestinal obstruction, unspecified as to partial versus complete obstruction Code(s): K56.609 - Unspecified intestinal obstruction, unspecified as to partial versus complete obstruction Status: Acute Assessment and Plan: 08/21/2021 interval history, patient presented with abdominal pain and found to have descending colon volvulus, incisional hernia, had laparoscopy open left hemicolectomy with chronic anastomosis, and repair of open incisional hernia, patient just returned from the surgery, is feeling little better denies any abdominal pain nausea or vomiting, will continue to monitor and follow surgeon instruction and further recommendation to follow. 08/22/2021 interval history, patient presented with abdominal pain and found to have descending colon volvulus, incisional hernia, had laparoscopy open left hemicolectomy with chronic anastomosis, and repair of open incisional hernia, POD# 1, Patient is poor historian. passing gas but no BM, seen by surgery services recommended to continue clear liquids and monitor, (2) Hiatal hernia with GERD: Code(s): K44.9 - Diaphragmatic hernia without obstruction or gangrene; K21.9 - Gastro-esophageal reflux disease without esophagitis Status: Acute Additional Plan The patient has obstruction of the large intestine. He is currently NPO and on IV fluids. General surgery and Gastroenterology have been consulted. The patient does have evidence of a hiatal hernia and has a history of prior esophageal surgery. Sounds as if he has had increasing frequency of GERD symptoms. Will place patient on Protonix IV b.i.d.. Patient has been admitted as observation status. Subjective Date/time seen: 08/22/21 12:58 08/21/2021 interval history, patient presented with abdominal pain and found to have descending colon volvulus, incisional hernia, had laparoscopy open left hemicolectomy with chronic anastomosis, and repair of open incisional hernia, patient just returned from the surgery, is feeling little better denies any abdominal pain nausea or vomiting, will continue to monitor and follow surgeon instruction and further recommendation to follow. 08/22/2021 interval history, patient presented with abdominal pain and found to have descending colon volvulus, incisional hernia, had laparoscopy open left hemicolectomy with chronic anastomosis, and repair of open incisional hernia, POD# 1, Patient is poor historian. passing gas but no BM, seen by surgery services recommended to continue clear liquids and monitor, Review of Systems Review of Systems: All systems reviewed & are unremarkable except as noted in HPI and below Exam Narrative: appears chronically Patient is comfortable, NAD HEENT: eyes are clear and none icteric LUNGS: normal respiratory effort ABD: nondistended Lower extremities: no edema SKIN: nonjaundiced Neuro: grossly intact. Objective Data Vital Signs Vital Signs: Vital Signs - 24 hr 08/21/21 13:01 08/21/21 14:31 08/21/21 20:00 Temperature 98.2 F 98.3 F 98.2 F Pulse Rate 73 62 84 Respiratory Rate 16 16 18 Blood Pressure 107/62 126/70 110/71 Pulse Oximetry 96 100 98 08/22/21 00:00 08/22/21 04:00 Temperature 98.0 F 98.1 F Pulse Rate 88 80 Respiratory Rate 18 18 Blood Pressure 122/86 116/63 Pulse Oximetry 100 98 Intake/Output Intake/Output: Intake & Output 08/19/21 08/20/21 08/21/21 08/22/21 23:59 23:59 23:59 23:59 Intake Total 2450 3410 1310 1760 Output Total 1610 900 Balance 2450 3410 -300 860 Meds/Results Medications: Active Medications Generic Name Dose Route Start Last Admin Trade Name Freq PRN Reason Stop Dose Admin Acetaminophen 500 mg 08/21/21 13:00 08/22/21 12:20 Acetaminophen 500 M
[2021-08-22 14:52] VITALS: BP 127/78; PULSE 97; RESP 14; TEMP 36.9; O2SAT 100
[2021-08-22 21:00] VITALS: PULSE 97; RESP 14; O2SAT 100
[2021-08-23] MEDS: ACETAMINOPHEN 500 MG TABLET PO ×3 (01:33→14:25)
[2021-08-23] MEDS: LACTATED RINGERS 1,000 ML 100 ML IV CONT (01:44)
[2021-08-23 06:33] LABS: Hemoglobin 9.8 g/dL (14.0-18.0); Mean Corpuscular HGB Conc 33.8 g/dl (32-36); Mean Corpuscular Hemoglobin 30.5 pg (26-34); Mean Corpuscular Volume 90.3 fl (80-100); Mean Platelet Volume 10.3 fl (7.4-10.4); Platelet Count Result 270 k/mm3 (150-375); Red Blood Count 3.21 M/mm3 (4.6-6.20); Red Cell Distribution Width 13.5 % (11.5-14.5); White Blood Count 11.5 K/mm3 (4.5-10.0)
[2021-08-23 06:58] LABS: Anion Gap 5 mmol/L (8-16); Blood Urea Nitrogen 11 mg/dL (9-20); Calcium 8.8 mg/dL (8.4-10.2); Carbon Dioxide 27 mmol/L (22-30); Chloride 98 mmol/L (98-107); Estimated CRCL calculation 93 ml/min; Estimated Glomerular Filt Rate > 60; Glucose 112 mg/dL (65-110); Potassium 3.8 mmol/L (3.4-5.0); Sodium 130 mmol/L (137-145)
[2021-08-23] MEDS: ENOXAPARIN 40 MG/0.4 ML SYRINGE SUB-Q (08:38)
[2021-08-23] MEDS: PANTOPRAZOLE SODIUM IV 40 MG VIAL IV PUSH ×2 (08:38→21:05)
[2021-08-23] MEDS: MAGNESIUM OXIDE 400 MG TABLET PO (08:38)
--- NOTE | 2021-08-23 12:00 | PM.PNGS ---
Progress Note: A&P Assessment and Plan (1) Sigmoid volvulus: Code(s): K56.2 - Volvulus Status: Acute Assessment and Plan: Advance to full liquids Will start Dulcolax daily and Probiotics Increase activity Await further return of bowel function (2) Autism spectrum disorder: Code(s): F84.0 - Autistic disorder Status: Acute Subjective Subjective Date/Time Seen: 08/23/21 12:00 Interval history: Passing flatus. No BM yet. No nausea/vomiting. Exam GI: Inspection: other (minimally distended) GI Palp: Yes Tenderness to palpation present (GI) (incisional) Auscultation: normal bowel sounds Objective Data Vital Signs Vital Signs: Vital Signs - 24 hr 08/22/21 14:52 08/22/21 21:00 Temperature 36.9 C Pulse Rate 97 97 Respiratory Rate 14 14 Blood Pressure 127/78 Pulse Oximetry 100 100 Intake/Output Intake/Output: Intake & Output 08/20/21 08/21/21 08/22/21 08/23/21 23:59 23:59 23:59 23:59 Intake Total 3410 1310 4580 1700 Output Total 1610 900 Balance 3410 -300 3680 1700 Meds/Results Medications: Active Medications Generic Name Dose Route Start Last Admin Trade Name Freq PRN Reason Stop Dose Admin Acetaminophen 500 mg 08/21/21 13:00 08/23/21 06:40 Acetaminophen 500 Mg Tablet PO 500 mg Q6H ELLA Administration Hydrocodone Bitart/Acetaminophen 1 tab 08/23/21 11:56 Hydrocodone/Acetaminophen (*Crx) 10-325 Mg Tablet PO Q4H PRN Pain Rated 7-10 Hydrocodone Bitart/Acetaminophen 1 tab 08/23/21 11:56 Hydrocodone/Acetaminophen (*Crx) 5-325 Mg Tablet PO Q4H PRN Pain Rated 4-6 Bisacodyl 10 mg 08/23/21 11:56 Bisacodyl 5 Mg Tablet Ec PO 08/23/21 11:57 ONCE ONE Bisacodyl 10 mg 08/24/21 09:00 Bisacodyl 5 Mg Tablet Ec PO QAM ELLA Enoxaparin Sodium 40 mg 08/22/21 09:00 08/23/21 08:38 Enoxaparin 40 Mg/0.4 Ml Syringe SUB-Q 40 mg DAILY ELLA Administration Hydromorphone HCl 0.5 mg 08/19/21 01:01 08/19/21 10:33 Hydromorphone Hcl Inj (*Crx) 1 Mg/Ml Syr IV PUSH 0.5 mg Q4H PRN Administration Pain Rated 7-10 Lactobacillus Acidophilus 1 tablet 08/23/21 13:00 Acidophilus/Bulgaricus Chewable Tablet PO QID ELLA Magnesium Oxide 400 mg 08/22/21 09:00 08/23/21 08:38 Magnesium Oxide 400 Mg Tablet PO 400 mg QAM ELLA Administration Morphine Sulfate 2 mg 08/21/21 12:46 08/22/21 02:18 Morphine Sulfate (*Crx) 2 Mg/Ml Inj IV PUSH 2 mg Q2H PRN Administration Pain Rated 4-6 Morphine Sulfate 4 mg 08/21/21 12:46 08/22/21 04:25 Morphine Sulfate (*Crx) 4 Mg/Ml Inj IV PUSH 4 mg Q2H PRN Administration Pain Rated 7-10 Ondansetron HCl 4 mg 08/19/21 01:01 Ondansetron Inj 4 Mg/2 Ml Vial IV PUSH Q4H PRN Nausea Pantoprazole Sodium 40 mg 08/19/21 09:00 08/23/21 08:38 Pantoprazole Sodium Iv 40 Mg Vial IV PUSH 40 mg Q12HR ELLA Administration Radiology Results: ITS Impressions Abdomen/Pelvis CT 08/18/21 23:13 IMPRESSION: 1. Prominent gaseous distention of the proximal to mid colon with relatively abrupt transition point at the proximal descending colon which raises concern for obstruction. Differential would include Redford syndrome. 2. Fluid and debris within either a moderate-sized sliding-type hiatal hernia versus patulous distal esophagus with small amount of surrounding ascites. 3. Cholelithiasis. Enema w/Water Soluble 08/19/21 09:07 IMPRESSION: 1. Sigmoid volvulus. Labs Labs: Laboratory Results - last 24 hr 08/23/21 08/23/21 05:28 05:28 WBC 11.5 H RBC 3.21 L Hgb 9.8 L Hct 29.0 L MCV 90.3 MCH 30.5 MCHC 33.8 RDW 13.5 Plt Count 270 MPV 10.3 Sodium 130 L Potassium 3.8 Chloride 98 Carbon Dioxide 27 Anion Gap 5 L BUN 11 Creatinine 0.80 Estim Creat Clear Calc 93 Estimated GFR > 60 Glucose 112 H Calcium 8.8 Magnesium 2.0 Quality VTE Prophylaxis VTE prop
--- NOTE | 2021-08-23 12:40 | PM.IMPN ---
Progress Note: A&P Assessment and Plan (1) Bowel obstruction: Qualifiers: Intestinal obstruction extent: unspecified extent Intestinal obstruction type: unspecified Qualified Code(s): K56.609 - Unspecified intestinal obstruction, unspecified as to partial versus complete obstruction Code(s): K56.609 - Unspecified intestinal obstruction, unspecified as to partial versus complete obstruction Status: Acute Assessment and Plan: 08/21/2021 interval history, patient presented with abdominal pain and found to have descending colon volvulus, incisional hernia, had laparoscopy open left hemicolectomy with chronic anastomosis, and repair of open incisional hernia, patient just returned from the surgery, is feeling little better denies any abdominal pain nausea or vomiting, will continue to monitor and follow surgeon instruction and further recommendation to follow. 08/22/2021 interval history, patient presented with abdominal pain and found to have descending colon volvulus, incisional hernia, had laparoscopy open left hemicolectomy with chronic anastomosis, and repair of open incisional hernia, POD# 1, Patient is poor historian. passing gas but no BM, seen by surgery services recommended to continue clear liquids and monitor, 08/23/2021 interval history, patient presented with abdominal pain and found to have descending colon volvulus, incisional hernia, had laparoscopy open left hemicolectomy with chronic anastomosis, and repair of open incisional hernia, POD# 2, Patient is poor historian. passing gas and trying to have a BM, patient has developed hyponatremia, will place on fluids restrictions seen by surgery services advanced his diet to full liquids and stop IVF lactate ringer and will monitor, (2) Hiatal hernia with GERD: Code(s): K44.9 - Diaphragmatic hernia without obstruction or gangrene; K21.9 - Gastro-esophageal reflux disease without esophagitis Status: Acute Additional Plan The patient has obstruction of the large intestine. He is currently NPO and on IV fluids. General surgery and Gastroenterology have been consulted. The patient does have evidence of a hiatal hernia and has a history of prior esophageal surgery. Sounds as if he has had increasing frequency of GERD symptoms. Will place patient on Protonix IV b.i.d.. Patient has been admitted as observation status. Subjective Date/time seen: 08/23/21 12:40 08/21/2021 interval history, patient presented with abdominal pain and found to have descending colon volvulus, incisional hernia, had laparoscopy open left hemicolectomy with chronic anastomosis, and repair of open incisional hernia, patient just returned from the surgery, is feeling little better denies any abdominal pain nausea or vomiting, will continue to monitor and follow surgeon instruction and further recommendation to follow. 08/22/2021 interval history, patient presented with abdominal pain and found to have descending colon volvulus, incisional hernia, had laparoscopy open left hemicolectomy with chronic anastomosis, and repair of open incisional hernia, POD# 1, Patient is poor historian. passing gas but no BM, seen by surgery services recommended to continue clear liquids and monitor, 08/21/2021 interval history, patient presented with abdominal pain and found to have descending colon volvulus, incisional hernia, had laparoscopy open left hemicolectomy with chronic anastomosis, and repair of open incisional hernia, patient just returned from the surgery, is feeling little better denies any abdominal pain nausea or vomiting, will continue to monitor and follow surgeon instruction and further recommendation to follow. 08/23/2021 interval history, patient presented with abdominal pain and found to have descending colon volvulus, incisional hernia, had laparoscopy open left hemicolectomy with chronic anastomosis, and repair of open incisional hernia, POD# 2, Patient i
[2021-08-23] MEDS: BISACODYL 5 MG TABLET EC 10 MG PO (14:25)
[2021-08-23] MEDS: ACIDOPHILUS/BULGARICUS CHEWABLE TABLET 1 TABLET PO ×3 (14:25→21:05)
[2021-08-23 20:00] VITALS: PULSE 95; RESP 18; O2SAT 100
[2021-08-23 21:01] VITALS: BP 104/75; PULSE 95; RESP 18; TEMP 36.6; O2SAT 100
[2021-08-24 05:19] VITALS: BP 117/59; PULSE 101; RESP 16; TEMP 36.6; O2SAT 100
[2021-08-24 06:17] LABS: Hematocrit 26.9 % (42.0-52.0); Hemoglobin 8.5 g/dL (14.0-18.0); Mean Corpuscular HGB Conc 31.6 g/dl (32-36); Mean Corpuscular Hemoglobin 31.1 pg (26-34); Mean Corpuscular Volume 98.5 fl (80-100); Mean Platelet Volume 9.7 fl (7.4-10.4); Platelet Count Result 219 k/mm3 (150-375); Red Blood Count 2.73 M/mm3 (4.6-6.20); Red Cell Distribution Width 13.6 % (11.5-14.5); White Blood Count 7.2 K/mm3 (4.5-10.0)
[2021-08-24 06:43] LABS: Anion Gap 4 mmol/L (8-16); Blood Urea Nitrogen 10 mg/dL (9-20); Calcium 8.5 mg/dL (8.4-10.2); Carbon Dioxide 25 mmol/L (22-30); Chloride 101 mmol/L (98-107); Estimated CRCL calculation 93 ml/min; Estimated Glomerular Filt Rate > 60; Glucose 96 mg/dL (65-110); Magnesium 1.8 mg/dL (1.6-2.3); Potassium 3.7 mmol/L (3.4-5.0); Sodium 130 mmol/L (137-145)
[2021-08-24] MEDS: ACETAMINOPHEN 500 MG TABLET PO (08:11)
[2021-08-24] MEDS: MAGNESIUM OXIDE 400 MG TABLET PO (08:12)
[2021-08-24] MEDS: PANTOPRAZOLE SODIUM IV 40 MG VIAL IV PUSH ×2 (08:12→21:07)
[2021-08-24] MEDS: BISACODYL 5 MG TABLET EC 10 MG PO (08:12)
[2021-08-24] MEDS: ENOXAPARIN 40 MG/0.4 ML SYRINGE SUB-Q (08:12)
[2021-08-24] MEDS: ACIDOPHILUS/BULGARICUS CHEWABLE TABLET 1 TABLET PO ×4 (08:12→21:06)
--- NOTE | 2021-08-24 09:32 | PM.PNGS ---
Progress Note: A&P Assessment and Plan (1) Sigmoid volvulus: Code(s): K56.2 - Volvulus Status: Acute Assessment and Plan: Advance to regular diet today Continue Dulcolax and probiotics Possibly home tomorrow (2) Autism spectrum disorder: Code(s): F84.0 - Autistic disorder Status: Acute Subjective Subjective Date/Time Seen: 08/24/21 09:32 Interval history: Bowels moving. Tolerating diet. Pain controlled. Exam GI: Inspection: non-distended and incision (intact, scant blood at a couple spots) GI Palp: Yes Soft to palpation Auscultation: normal bowel sounds Objective Data Vital Signs Vital Signs: Vital Signs - 24 hr 08/23/21 20:00 08/23/21 21:01 08/24/21 05:19 Temperature 36.6 C 36.6 C Pulse Rate 95 95 101 H Respiratory Rate 18 18 16 Blood Pressure 104/75 117/59 L Pulse Oximetry 100 100 100 Intake/Output Intake/Output: Intake & Output 08/21/21 08/22/21 08/23/21 08/24/21 23:59 23:59 23:59 23:59 Intake Total 1310 4580 4520 460 Output Total 1610 900 Balance -300 3680 4520 460 Meds/Results Medications: Active Medications Generic Name Dose Route Start Last Admin Trade Name Freq PRN Reason Stop Dose Admin Acetaminophen 500 mg 08/23/21 12:05 08/24/21 08:11 Acetaminophen 500 Mg Tablet PO 500 mg Q6H PRN Administration Mild Pain (1-3) Hydrocodone Bitart/Acetaminophen 1 tab 08/23/21 11:56 Hydrocodone/Acetaminophen (*Crx) 10-325 Mg Tablet PO Q4H PRN Pain Rated 7-10 Hydrocodone Bitart/Acetaminophen 1 tab 08/23/21 11:56 Hydrocodone/Acetaminophen (*Crx) 5-325 Mg Tablet PO Q4H PRN Pain Rated 4-6 Bisacodyl 10 mg 08/24/21 09:00 08/24/21 08:12 Bisacodyl 5 Mg Tablet Ec PO 10 mg QAM ELLA Administration Enoxaparin Sodium 40 mg 08/22/21 09:00 08/24/21 08:12 Enoxaparin 40 Mg/0.4 Ml Syringe SUB-Q 40 mg DAILY ELLA Administration Hydromorphone HCl 0.5 mg 08/19/21 01:01 08/19/21 10:33 Hydromorphone Hcl Inj (*Crx) 1 Mg/Ml Syr IV PUSH 0.5 mg Q4H PRN Administration Pain Rated 7-10 Lactobacillus Acidophilus 1 tablet 08/23/21 13:00 08/24/21 08:12 Acidophilus/Bulgaricus Chewable Tablet PO 1 tablet QID ELLA Administration Magnesium Oxide 400 mg 08/22/21 09:00 08/24/21 08:12 Magnesium Oxide 400 Mg Tablet PO 400 mg QAM ELLA Administration Morphine Sulfate 2 mg 08/21/21 12:46 08/22/21 02:18 Morphine Sulfate (*Crx) 2 Mg/Ml Inj IV PUSH 2 mg Q2H PRN Administration Pain Rated 4-6 Morphine Sulfate 4 mg 08/21/21 12:46 08/22/21 04:25 Morphine Sulfate (*Crx) 4 Mg/Ml Inj IV PUSH 4 mg Q2H PRN Administration Pain Rated 7-10 Ondansetron HCl 4 mg 08/19/21 01:01 Ondansetron Inj 4 Mg/2 Ml Vial IV PUSH Q4H PRN Nausea Pantoprazole Sodium 40 mg 08/19/21 09:00 08/24/21 08:12 Pantoprazole Sodium Iv 40 Mg Vial IV PUSH 40 mg Q12HR ELLA Administration Radiology Results: ITS Impressions Abdomen/Pelvis CT 08/18/21 23:13 IMPRESSION: 1. Prominent gaseous distention of the proximal to mid colon with relatively abrupt transition point at the proximal descending colon which raises concern for obstruction. Differential would include Greg syndrome. 2. Fluid and debris within either a moderate-sized sliding-type hiatal hernia versus patulous distal esophagus with small amount of surrounding ascites. 3. Cholelithiasis. Enema w/Water Soluble 08/19/21 09:07 IMPRESSION: 1. Sigmoid volvulus. Labs Labs: Laboratory Results - last 24 hr 08/24/21 08/24/21 06:07 06:07 WBC 7.2 RBC 2.73 L Hgb 8.5 L Hct 26.9 L MCV 98.5 D MCH 31.1 MCHC 31.6 L RDW 13.6 Plt Count 219 MPV 9.7 Sodium 130 L Potassium 3.7 Chloride 101 Carbon Dioxide 25 Anion Gap 4 L BUN 10 Creatinine 0.80 Estim Creat Clear Calc 93 Estimated GFR > 60 Glucose 96 Calcium 8.5 Magnesium 1.8 Quality VTE Prophylaxi
--- NOTE | 2021-08-24 14:38 | PM.IMPN ---
Progress Note: A&P Assessment and Plan (1) Bowel obstruction: Qualifiers: Intestinal obstruction extent: unspecified extent Intestinal obstruction type: unspecified Qualified Code(s): K56.609 - Unspecified intestinal obstruction, unspecified as to partial versus complete obstruction Code(s): K56.609 - Unspecified intestinal obstruction, unspecified as to partial versus complete obstruction Status: Acute Assessment and Plan: 08/21/2021 interval history, patient presented with abdominal pain and found to have descending colon volvulus, incisional hernia, had laparoscopy open left hemicolectomy with chronic anastomosis, and repair of open incisional hernia, patient just returned from the surgery, is feeling little better denies any abdominal pain nausea or vomiting, will continue to monitor and follow surgeon instruction and further recommendation to follow. 08/22/2021 interval history, patient presented with abdominal pain and found to have descending colon volvulus, incisional hernia, had laparoscopy open left hemicolectomy with chronic anastomosis, and repair of open incisional hernia, POD# 1, Patient is poor historian. passing gas but no BM, seen by surgery services recommended to continue clear liquids and monitor, 08/23/2021 interval history, patient presented with abdominal pain and found to have descending colon volvulus, incisional hernia, had laparoscopy open left hemicolectomy with chronic anastomosis, and repair of open incisional hernia, POD# 2, Patient is poor historian. passing gas and trying to have a BM, patient has developed hyponatremia, will place on fluids restrictions seen by surgery services advanced his diet to full liquids and stop IVF lactate ringer and will monitor, 08/24/2021 interval history, patient presented with abdominal pain and found to have descending colon volvulus, incisional hernia, had laparoscopy open left hemicolectomy with colonic anastomosis, and repair of open incisional hernia, POD# 3, Patient is poor historian. had a BM on 08/23 seen by his surgeon and advanced his diet to regular, patient has developed hyponatremia, will place on fluids restrictions, and will monitor, may discharge him tomorrow, will have PT/OT evaluate the patient as tolerated. (2) Hiatal hernia with GERD: Code(s): K44.9 - Diaphragmatic hernia without obstruction or gangrene; K21.9 - Gastro-esophageal reflux disease without esophagitis Status: Acute Additional Plan The patient has obstruction of the large intestine. He is currently NPO and on IV fluids. General surgery and Gastroenterology have been consulted. The patient does have evidence of a hiatal hernia and has a history of prior esophageal surgery. Sounds as if he has had increasing frequency of GERD symptoms. Will place patient on Protonix IV b.i.d.. Patient has been admitted as observation status. Subjective Date/time seen: 08/24/21 14:38 08/21/2021 interval history, patient presented with abdominal pain and found to have descending colon volvulus, incisional hernia, had laparoscopy open left hemicolectomy with chronic anastomosis, and repair of open incisional hernia, patient just returned from the surgery, is feeling little better denies any abdominal pain nausea or vomiting, will continue to monitor and follow surgeon instruction and further recommendation to follow. 08/22/2021 interval history, patient presented with abdominal pain and found to have descending colon volvulus, incisional hernia, had laparoscopy open left hemicolectomy with chronic anastomosis, and repair of open incisional hernia, POD# 1, Patient is poor historian. passing gas but no BM, seen by surgery services recommended to continue clear liquids and monitor, 08/23/2021 interval history, patient presented with abdominal pain and found to have descending colon volvulus, incisional hernia, had laparoscopy open left hemicolectomy with ch
[2021-08-24 20:32] VITALS: BP 108/62; PULSE 97; RESP 16; TEMP 36.9; O2SAT 100
[2021-08-25 04:35] VITALS: BP 104/64; PULSE 90; RESP 18; TEMP 36.5; O2SAT 100
[2021-08-25 06:57] LABS: Hematocrit 21.2 % (42.0-52.0); Hemoglobin 7.3 g/dL (14.0-18.0); Mean Corpuscular HGB Conc 34.4 g/dl (32-36); Mean Corpuscular Hemoglobin 30.9 pg (26-34); Mean Corpuscular Volume 89.8 fl (80-100); Mean Platelet Volume 10.1 fl (7.4-10.4); Platelet Count Result 246 k/mm3 (150-375); Red Blood Count 2.36 M/mm3 (4.6-6.20); Red Cell Distribution Width 13.6 % (11.5-14.5); White Blood Count 6.4 K/mm3 (4.5-10.0)
[2021-08-25 07:13] LABS: Anion Gap 3 mmol/L (8-16); Blood Urea Nitrogen 11 mg/dL (9-20); Calcium 8.2 mg/dL (8.4-10.2); Carbon Dioxide 26 mmol/L (22-30); Chloride 101 mmol/L (98-107); Estimated CRCL calculation 94 ml/min; Estimated Glomerular Filt Rate > 60; Glucose 90 mg/dL (65-110); Magnesium 1.8 mg/dL (1.6-2.3); Potassium 3.3 mmol/L (3.4-5.0); Sodium 130 mmol/L (137-145)
[2021-08-25] MEDS: ENOXAPARIN 40 MG/0.4 ML SYRINGE SUB-Q (09:40)
[2021-08-25] MEDS: MAGNESIUM OXIDE 400 MG TABLET PO (09:40)
[2021-08-25] MEDS: BISACODYL 5 MG TABLET EC 10 MG PO (09:40)
[2021-08-25] MEDS: ACIDOPHILUS/BULGARICUS CHEWABLE TABLET 1 TABLET PO ×2 (09:40→12:56)
[2021-08-25] MEDS: PANTOPRAZOLE SODIUM IV 40 MG VIAL IV PUSH (09:40)
--- NOTE | 2021-08-25 11:43 | PM.PNGS ---
Progress Note: A&P Assessment and Plan (1) Sigmoid volvulus: Code(s): K56.2 - Volvulus Status: Acute Assessment and Plan: Bowel function returning and tolerating diet. OK to discharge home today. Will check H/H to make sure he is stable. Lower today, but likely just dilutional or lab error. No signs of active bleeding. (2) Autism spectrum disorder: Code(s): F84.0 - Autistic disorder Status: Acute (3) Acute blood loss anemia: Code(s): D62 - Acute posthemorrhagic anemia Status: Acute Assessment and Plan: Likely related to surgery and baseline slightly lower. Subjective Subjective Date/Time Seen: 08/25/21 11:43 Interval history: Tolerating regular diet. Bowels moving. Denies any blood in stool. Exam GI: Inspection: non-distended and incision (intact with jeane) GI Palp: Yes Soft to palpation, No Tenderness to palpation present (GI) and No Guarding due to palpation present (GI) Objective Data Vital Signs Vital Signs: Vital Signs - 24 hr 08/24/21 20:32 08/25/21 04:35 Temperature 36.9 C 36.5 C Pulse Rate 97 90 Respiratory Rate 16 18 Blood Pressure 108/62 104/64 Pulse Oximetry 100 100 Intake/Output Intake/Output: Intake & Output 08/22/21 08/23/21 08/24/21 08/25/21 23:59 23:59 23:59 23:59 Intake Total 4580 4520 2590 365 Output Total 900 Balance 3680 4520 2590 365 Meds/Results Medications: Active Medications Generic Name Dose Route Start Last Admin Trade Name Freq PRN Reason Stop Dose Admin Acetaminophen 500 mg 08/23/21 12:05 08/24/21 08:11 Acetaminophen 500 Mg Tablet PO 500 mg Q6H PRN Administration Mild Pain (1-3) Hydrocodone Bitart/Acetaminophen 1 tab 08/23/21 11:56 Hydrocodone/Acetaminophen (*Crx) 10-325 Mg Tablet PO Q4H PRN Pain Rated 7-10 Hydrocodone Bitart/Acetaminophen 1 tab 08/23/21 11:56 Hydrocodone/Acetaminophen (*Crx) 5-325 Mg Tablet PO Q4H PRN Pain Rated 4-6 Bisacodyl 10 mg 08/24/21 09:00 08/25/21 09:40 Bisacodyl 5 Mg Tablet Ec PO 10 mg QAM ELLA Administration Enoxaparin Sodium 40 mg 08/22/21 09:00 08/25/21 09:40 Enoxaparin 40 Mg/0.4 Ml Syringe SUB-Q 40 mg DAILY ELLA Administration Hydromorphone HCl 0.5 mg 08/19/21 01:01 08/19/21 10:33 Hydromorphone Hcl Inj (*Crx) 1 Mg/Ml Syr IV PUSH 0.5 mg Q4H PRN Administration Pain Rated 7-10 Lactobacillus Acidophilus 1 tablet 08/23/21 13:00 08/25/21 09:40 Acidophilus/Bulgaricus Chewable Tablet PO 1 tablet QID ELAL Administration Magnesium Oxide 400 mg 08/22/21 09:00 08/25/21 09:40 Magnesium Oxide 400 Mg Tablet PO 400 mg QAM ELLA Administration Morphine Sulfate 2 mg 08/21/21 12:46 08/22/21 02:18 Morphine Sulfate (*Crx) 2 Mg/Ml Inj IV PUSH 2 mg Q2H PRN Administration Pain Rated 4-6 Morphine Sulfate 4 mg 08/21/21 12:46 08/22/21 04:25 Morphine Sulfate (*Crx) 4 Mg/Ml Inj IV PUSH 4 mg Q2H PRN Administration Pain Rated 7-10 Ondansetron HCl 4 mg 08/19/21 01:01 Ondansetron Inj 4 Mg/2 Ml Vial IV PUSH Q4H PRN Nausea Pantoprazole Sodium 40 mg 08/19/21 09:00 08/25/21 09:40 Pantoprazole Sodium Iv 40 Mg Vial IV PUSH 40 mg Q12HR ELLA Administration Radiology Results: ITS Impressions Abdomen/Pelvis CT 08/18/21 23:13 IMPRESSION: 1. Prominent gaseous distention of the proximal to mid colon with relatively abrupt transition point at the proximal descending colon which raises concern for obstruction. Differential would include Colbert syndrome. 2. Fluid and debris within either a moderate-sized sliding-type hiatal hernia versus patulous distal esophagus with small amount of surrounding ascites. 3. Cholelithiasis. Enema w/Water Soluble 08/19/21 09:07 IMPRESSION: 1. Sigmoid volvulus. Labs Labs: Laboratory Results - last 24 hr 08/25/21 08/25/21 05:35 05:35 WBC 6.4 RBC 2.36 L Hgb 7.3 L Hct 21.2 L MCV 8
[2021-08-25 14:00] VITALS: BP 103/68; PULSE 78; RESP 20; TEMP 37.2; O2SAT 94
[2021-08-25 14:01] LABS: Hematocrit 23.9 % (42.0-52.0)
--- NOTE | 2021-08-25 15:01 | PM.DS ---
DS: Admitting Diagnosis Discharge Date 08/25/2021 Admitting Diagnosis abdominal pain DS: Discharge Diagnosis Discharge Diagnosis (1) Bowel obstruction: Qualifiers: Intestinal obstruction extent: unspecified extent Intestinal obstruction type: unspecified Qualified Code(s): K56.609 - Unspecified intestinal obstruction, unspecified as to partial versus complete obstruction Code(s): K56.609 - Unspecified intestinal obstruction, unspecified as to partial versus complete obstruction Status: Acute Assessment and Plan: 08/21/2021 interval history, patient presented with abdominal pain and found to have descending colon volvulus, incisional hernia, had laparoscopy open left hemicolectomy with chronic anastomosis, and repair of open incisional hernia, patient just returned from the surgery, is feeling little better denies any abdominal pain nausea or vomiting, will continue to monitor and follow surgeon instruction and further recommendation to follow. 08/22/2021 interval history, patient presented with abdominal pain and found to have descending colon volvulus, incisional hernia, had laparoscopy open left hemicolectomy with chronic anastomosis, and repair of open incisional hernia, POD# 1, Patient is poor historian. passing gas but no BM, seen by surgery services recommended to continue clear liquids and monitor, 08/23/2021 interval history, patient presented with abdominal pain and found to have descending colon volvulus, incisional hernia, had laparoscopy open left hemicolectomy with chronic anastomosis, and repair of open incisional hernia, POD# 2, Patient is poor historian. passing gas and trying to have a BM, patient has developed hyponatremia, will place on fluids restrictions seen by surgery services advanced his diet to full liquids and stop IVF lactate ringer and will monitor, 08/24/2021 interval history, patient presented with abdominal pain and found to have descending colon volvulus, incisional hernia, had laparoscopy open left hemicolectomy with colonic anastomosis, and repair of open incisional hernia, POD# 3, Patient is poor historian. had a BM on 08/23 seen by his surgeon and advanced his diet to regular, patient has developed hyponatremia, will place on fluids restrictions, and will monitor, may discharge him tomorrow, will have PT/OT evaluate the patient as tolerated. (2) Hiatal hernia with GERD: Code(s): K44.9 - Diaphragmatic hernia without obstruction or gangrene; K21.9 - Gastro-esophageal reflux disease without esophagitis Status: Acute DS: Summary Hospital Course Reason for hospitalization: Chief Complaint: Abdominal pain Narrative: 41-year-old male with a past medical history of mild schizophrenia, autism spectrum disorder and prior esophageal surgeries and large bowel resection due to recurrent obstructions who presented to the ER from home due to abdominal pain. The patient reports that the pain started in the left lower abdomen and was a 5/10 in intensity. Pain was dull and aching in nature and did not radiate. It was accompanied by a couple of hours of proceeding abdominal distension. The pain is now down to a 1/10 in intensity. He denies any eliciting or relieving factors. He did have some nausea that occurred after he arrived to the ER but no active vomiting. His last bowel movement was on the morning of the and was normally formed without hematochezia or melena. He does take MiraLax and a daily fiber supplement to help maintain regular bowel movements. He does have frequent dyspepsia and takes [id number] Tagamet. His sister reports that the patient has been requesting Tums more frequently in recent months. Sister also reports that the patient has had gradual weight loss over the last couple of years. Since the onset of COVID and with family staying at home they have eliminated a lot of fast food and junk food from their diet. She reports that she bro
== END 2021-08-25 16:45 | disposition home or self-care (01) | DRG 330 ==
LOC: ANHED 08-19 02:26 → ANH3MEDSUR 08-19 03:18
PROVIDERS: Internal Medicine Gastroenterology; Nurse Practitioner Adult Health; Surgery; Admitting Provider Internal Medicine; Emergency Provider Emergency Medicine; Visit Provider Family Medicine
PROC: 0DJD8ZZ Inspection of Lower Intestinal Tract, Via Natural or Artificial Opening Endoscopic (ICD-10-PCS; CPT 45378; principal; 2021-08-19 13:00)
PROC: 0D1E4Z4 Bypass Large Intestine to Cutaneous, Percutaneous Endoscopic Approach (ICD-10-PCS; principal; 2021-08-21 07:30)
DX: K56.2 Volvulus (principal); F84.0 Autistic disorder; K59.39 Other megacolon; D62 Acute posthemorrhagic anemia; K43.2 Incisional hernia without obstruction or gangrene; Z53.31 Laparoscopic surgical procedure converted to open procedure; K21.9 Gastro-esophageal reflux disease without esophagitis; K44.9 Diaphragmatic hernia without obstruction or gangrene; F20.9 Schizophrenia, unspecified; I89.0 Lymphedema, not elsewhere classified; Z79.899 Other long term (current) drug therapy
CPT/HCPCS: 36415; 74177; 74270; 80048; 80053; 81001; 83605; 83690; 83735; 85014; 85018; 85025; 85027; 86850; 86900; 86901; 88307; 96361; 96374; 96375; 97161; 97165; 99285; A9270; C1729; C9113; C9290; G0378; J0330; J0690; J1100; J1170; J1650; J1885; J2250; J2270; J2405; J2550; J2704; J2710; J3475; J7030; J7120; Q9967

== ENCOUNTER 2022-11-24 14:18 | Outpatient (CLI) | payer MEDICARE, SELFPAY ==
[2022-11-24 19:04] LABS: Basophils Percent Auto 0.6 % (0.2-1.2); Eosinophils Percent Auto 0.3 % (0-4.4); Hematocrit 37.1 % (42.0-52.0); Hemoglobin 12.4 g/dL (14.0-18.0); Immature Granulocyte Absolute 0.01 K/mm3 (0.00-0.031); Immature Granulocyte Percent A 0.2 % (0-0.5); Lymphocytes Absolute Auto 1.16 K/mm3 (0.9-3.2); Lymphocytes Percent Auto 18.3 % (18.3-44.2); Mean Corpuscular HGB Conc 33.4 g/dl (32-36); Mean Corpuscular Hemoglobin 30.5 pg (26-34); Mean Corpuscular Volume 91.2 fl (80-100); Mean Platelet Volume 11.4 fl (7.4-10.4); Monocytes Absolute Auto 0.4 K/mm3 (0.1-0.6); Monocytes Percent Auto 6.9 % (2.6-8.5); Neutrophils Absolute Auto 4.7 K/mm3 (1.3-6.7); Neutrophils Percent Auto 73.7 % (45.5-73.1); Platelet Count Result 185 k/mm3 (150-375); Red Blood Count 4.07 M/mm3 (4.6-6.20); Red Cell Distribution Width 13.4 % (11.5-14.5); White Blood Count 6.4 K/mm3 (4.5-10.0)
[2022-11-24 19:20] LABS: Alanine Aminotransferase 50 U/L (6-50); Albumin Level 4.6 g/dL (3.5-5.1); Alkaline Phosphatase 67 U/L (38-126); Anion Gap 9 mmol/L (8-16); Aspartate Amino Transferase 37 U/L (17-59); Blood Urea Nitrogen 18 mg/dL (9-20); Calcium 9.4 mg/dL (8.4-10.2); Carbon Dioxide 27 mmol/L (22-30); Chloride 103 mmol/L (98-107); Estimated Glomerular Filt Rate > 60; Glucose 95 mg/dL (65-110); Potassium 4.1 mmol/L (3.4-5.0); Sodium 139 mmol/L (137-145)
== END 2022-11-24 14:19 | disposition home or self-care (01) ==
LOC: ANHGOSHLAB 14:20
PROVIDERS: PCP Internal Medicine; Visit Provider Internal Medicine
DX: D64.9 Anemia, unspecified (principal); E87.6 Hypokalemia; E78.5 Hyperlipidemia, unspecified
CPT/HCPCS: 36415; 80053; 85025

== ENCOUNTER 2023-02-02 01:50 | Day surgery (SDC) | payer MEDICARE, MEDICAID, SELFPAY ==
[2023-02-01 08:50] VITALS: BMI 25.6
--- NOTE | 2023-02-01 08:55 | PC.NURSE ---
Report to the Outpatient Waiting Room, entrance under the green pavilion located off [facility], at time 0615 on date 02/02/23. Planned Procedure Time: 0815. Time changes happen often and if your time is changed the preop area will call you the afternoon before. - You and your visitor will be asked to self-screen and do not enter if you have any COVID symptoms. - A mask is optional within the hospital at this time. Patients may have clear liquids (water, carbonated beverages, clear teas, apple juice) until 3 hours prior to surgery with a maximum of 20 ounces. - No food from midnight until time of surgery Take the following medications with a SIP of water the morning of surgery: NONE DO NOT STOP ANY OF YOUR OTHER PRESCRIPTION MEDICATIONS PRIOR TO SURGERY EXCEPT THE FOLLOWING Medications to discontinue per physician: VITAMINS/SUPPLEMENTS Date to take last dose: NO MORE UNTIL AFTER SURGERY Please no make-up, nail british, hairspray, perfume, deodorant, or body powder the day of surgery. No jewelry (including any body piercings) or valuables the day of surgery, leave them at home. Please take a shower or bath the night before, or the morning of, surgery with an antibacterial soap. Wear comfortable, loose fitting clothing. - Jewelry must be removed prior to entering the operating room. Rings and piercings that are not removed may be cut off. - The hospital will not accept responsibility for valuables. - Please leave all valuables, including medications, at home the day of surgery. If you are going home after surgery, a licensed company driver must drive you home. - NO public transportation without another adult if you receive anesthesia. - We recommend that an adult stay with you for 24 hours following discharge. - We also recommend that you do not drive, make important decision, drink alcoholic beverages, or take any drugs that were not prescribed by your health care provider for at least 24 hours after your discharge time. Follow any additional instructions given to you from your surgeon. If you or anyone in your household have experienced Covid symptoms in the past week, please notify your surgeon or the nurse liaison at the phone number below for possible testing. Telephone instructions given to SISTER Bertha LANDAVERDE and asked if any additional questions and then verbalized understanding. Patient advised to call surgeon office or pre surgery nurse liaison [phone] if any additional questions.
--- NOTE | 2023-02-01 14:27 | WPDANESEPPF ---
Anes - Initial Pre Proc Eval Procedure: Operation Date: 02/02/23 08:15 Proposed Procedures p Circumcision - Nakul Koehler MD Date/Time: 02/01/23 14:27 Surgeon: Nakul Koehler MD Pre Op Diagnosis: phimosis Patient Data Age: 42 Gender: M Height: 1.57 m Weight: 63.5 kg Allergies Allergy/AdvReac Type Severity Reaction Status Date / Time No Known Allergies Allergy Unknown Verified 02/01/23 08:49 Home Medications Medication Instructions Recorded Confirmed Type polyethylene glycol 3350 17 gram 17 g PO BID 08/19/21 02/01/23 History oral powder packet (Miralax) cholecalciferol (vitamin D3) 50 50 mcg PO DAILY 11/24/22 02/01/23 History mcg (2,000 unit) capsule multivitamin with minerals 1 tablet PO DAILY 11/24/22 02/01/23 History (Multiple Vitamin-Minerals tablet) omeprazole 20 mg tablet,delayed 20 mg PO DAILY 11/24/22 02/01/23 History release mecobalamin (vitamin B12) 1,000 1,000 mcg PO DAILY 02/01/23 02/01/23 History mcg chewable tablet (B12 Active) Patient hx anesthesia problems: none Family hx anesthesia problems: none Results Review: All pre-operative results and documents have been reviewed as part of the pre-operative evaluation. [facility] Past Medical History Medical History (Updated 11/24/22 @ 14:28 by Nnamdi Quintanilla DO) Autism spectrum disorder Hiatal hernia with GERD Large bowel obstruction With what sounds like with due to volvulus Lymphedema of both lower extremities Schizophrenia Surgical History Surgical History (Updated 11/24/22 @ 13:44 by Sabrina Lawson [facility]) History of esophageal surgery (~2004) History of hemicolectomy 08/21/21, 03/2015 History of incisional hernia repair 08/21/21 History of resection of large bowel (~2014) Family History Family History (Updated 11/24/22 @ 13:47 by Sabrina Lawson CMA) Mother , At age 69 CHF (congestive heart failure) Acute myocardial infarction Asthma Father , At age 53 Acute myocardial infarction Diabetes mellitus Hypertension Sibling Asthma Anxiety and depression Grandparent Cerebrovascular accident paternal grandparent late 60's Cancer Other Cancer Social History Social History (Updated 11/24/22 @ 13:49 by Sabrina Lawson [facility]) Social History: He lives with his sister and kwdexqv-[id number]. He has never been . He does not work and is on SSD. He is a lifelong nonsmoker and does not drink alcohol. Primary care physician: None Code status: Full code Surrogate decision maker: Sister Smoking status: Never smoker Alcohol intake: never Substance use: never Substance use type: does not use Lack of Transportation: No Lack of Food: Never True Current Housing: I Have Housing Concerned About Future Housing: No Difficulty Paying Gas/Electric Bills: No Difficulty Paying for Meds: No Currently Unemployed: Decline to Answer Education: High School Diploma/GED Difficulty w/ Childcare or Family Care: Decline to Answer Living arrangements: with family Spiritual care concerns: No Anes - Eval Final PreProcedure Day of Procedure 02/01/23 14:27 Patient weight: normal Heart: regular rate and rhythm Lungs: clear to auscultation Airway: Mallampati scale Neurological: alert and oriented Last oral intake: >/= 8 hours ASA classification: III Emergent: no Anesthetic plan: proceed Anesthesia type and monitoring: general LMA and standard monitoring Results Review: All pre-operative results and documents have been reviewed as part of the pre-operative evaluation. Informed Consent: The patient's anesthetic plan and its attendant risks and benefits were discussed with the patient/family/POA. Questions were solicited and answers provided to the satisfaction of the patient/family/POA.
[2023-02-02] VITALS (7 sets, daily range): BP systolic 84–124; BP diastolic 53–76; PULSE 55–73; RESP 12–16; TEMP 36.4; O2SAT 99–100
--- NOTE | 2023-02-02 07:21 | WPDHPUPDATE1 ---
History and Physical Update Update Date/Time: 02/02/23 07:21 History and Physical has been reviewed, including an updated exam of the patient. There are NO changes in the patient's condition. Risks, benefits, and alternatives have been discussed and questions answered. Patient agrees to proceed with procedure. Proceed with circumcision
[2023-02-02] MEDS: LACTATED RINGERS 1,000 ML 30 ML IV CONT ×2 (07:22→09:26)
[2023-02-02] MEDS: ceFAZolin 2 GM/D5W 50 ML 2 GM/50 ML BAG IVPB (08:24)
[2023-02-02] MEDS: BUPivacaine HCL 0.5% 10 ML AMP 20 ML INFILTRATE (08:53)
--- NOTE | 2023-02-02 09:16 | W.PM.PROC2 ---
Procedure Note - Detailed Date of Procedure 02/02/23 Pre-op Diagnosis phimosis Post-op Diagnosis Same Procedure Performed Circumcision Surgeon Nakul Koehler MD Anesthesia General Description of Procedure The patient is brought to the operative suite areas prepped and draped in a routine sterile fashion while in a supine position. The lines of circumcision are outlined using a sterile marking pen. 2 circumferential circumcising incisions were made and carried down to Colle's fascia. The penile foreskin is circumferentially excised. Hemostasis is obtained with electric cautery. The edges of the penile skin reapproximated using interrupted 4-0 chromic. A penile block is administered at the base of the penis with 0.25% bupivacaine. The patient was taken to the recovery room in good condition. EBL was approximately 10cc. Drains No Packing No Pathology Yes Complications No immediate complications Condition Stable Disposition PACU
== END 2023-02-02 11:07 | disposition home or self-care (01) ==
PROVIDERS: PCP Internal Medicine; Visit Provider Urology
PROC: (CPT 54161; principal; 2023-02-02 08:15)
DX: N47.1 Phimosis (principal); F84.0 Autistic disorder; K21.9 Gastro-esophageal reflux disease without esophagitis; F20.9 Schizophrenia, unspecified
CPT/HCPCS: 54161; 88304; A9270; J0690; J1100; J2250; J2310; J2370; J2405; J2704; J3010; J7120

== ENCOUNTER 2023-06-15 20:39 | Inpatient (IN) | payer MEDICARE, MEDICAID, SELFPAY ==
[2023-06-15] VITALS (18 sets, daily range): BP systolic 74–89; BP diastolic 47–59; PULSE 83–110; RESP 11–24; TEMP 37.2–38.5; O2SAT 94–98
--- NOTE | ~2023-06-15 | XR_ITS ---
Portable chest x-ray Comparison: 06/15/2023 Clinical History: Line placement Findings: Right IJ line is in satisfactory position, tip in the SVC. Multiple small calcified granul omas are present bilaterally. Cardiomediastinal silhouette is stable. Air distended large bowel note d in the upper abdomen. Osseous structures are intact. Impression: Right IJ line in satisfactory position. Evidence of prior granulomatous disease. Reviewed, dictated and finalized at location . Impression: Right IJ line in satisfactory position. Evidence of prior granulomatous disease.
--- NOTE | ~2023-06-15 | CT_ITS ---
CT of the Abdomen and Pelvis: Indication: Ileus, distended colon Technique: 2.5 mm axial scans were obtained through the abdomen and pelvis following intravenous adm inistration of 100 cc of Omnipaque 350. Dose reduction technique was used on this scan by utilizing a utomated exposure control and iterative reconstruction technique. The dose-length product (DLP) was 9 66.25 mGy-cm. COMPARISON: 08/18/2021 Findings: Scans through the lung bases demonstrate minimal left pleural effusion. There is dilatatio n of the distal visualized esophagus. The liver, spleen, pancreas, adrenals and kidneys are within normal limits. Numerous gallstones are p resent. No evidence of aortic aneurysm. No lymphadenopathy. A distal sigmoid colonic anastomosis is present. There is marked air distention of much of the large bowel proximal to the anastomosis, especially the transverse colon. No distinct evidence for volvulus or bowel obstruction. There is moderate stool in the right colon as well as in the distal sigmoid co keren/rectum. Images through the pelvis were performed. Holden catheter in place. There is diffuse wall thickening o f the urinary bladder. Prostate gland is enlarged. Trace pelvic ascites and mild infiltration of pres acral fat. There is avascular necrosis of the bilateral femoral heads. Questionable minimal articular surface ir regularity of the right femoral head, which is stable from prior exam. Impression: Extensive distention of the large bowel, as detailed above, which could reflect ileus or pseudoobstru ction/Wishram syndrome. Diffuse wall thickening of the urinary bladder, suspicious for cystitis. Cholelithiasis. Minimal left pleural effusion. Trace ascites. Avascular necrosis of bilateral femoral heads, unchanged in appearance from prior exam. Reviewed, dictated and finalized at [facility]. Impression: Extensive distention of the large bowel, as detailed above, which could reflect ileus or pseudoobstruction/Wishram syndrome. Diffuse wall thickening of the urinary bladder, suspicious for cystitis. Cholelithiasis. Minimal left pleural effusion. Trace ascites. Avascular necrosis of bilateral femoral heads, unchanged in appearance from pamela or exam.
--- NOTE | ~2023-06-15 | XR_ITS ---
EXAMINATION: XR chest 2V DATE: 06/15/2023 23:34 INDICATION: Sepsis. TECHNIQUE: Frontal and lateral views of the chest were obtained. COMPARISON: Chest 2 views 01/31/2013, CT abdomen and pelvis 08/18/2021 FINDINGS: There is no pneumonia, pleural effusion, or pneumothorax. The heart size is normal. The col on is distended. IMPRESSION: 1. Distended colon, which may be secondary to adynamic ileus or obstruction. Reviewed, dictated and finalized at location E.
--- NOTE | 2023-06-15 21:00 | ECG_ITS ---
Measurements Intervals [place] Rate: 100 P: 34 WV: 154 QRS: -4 QRSD: 104 T: -4 QT: 314 QTc: 406 Interpretive Statements SINUS TACHYCARDIA BASELINE ARTIFACT NONSPECIFIC ST AND T-WAVE ABNORMALITY BORDERLINE ECG NO PREVIOUS ECG AVAILABLE FOR COMPARISON Electronically Signed On 06-16-2023 8:59:14 CDT by Celso Veronica M.D.
--- NOTE | 2023-06-15 21:08 | PC.NURSE ---
LR initiated per EMS in route to ED, 1 L LR cont on pts arrival for full L to be infused.
[2023-06-15] MEDS: LACTATED RINGERS 1,000 ML 999 ML IV CONT ×2 (21:09→22:23)
[2023-06-15 21:17] LABS: Basophils Percent Auto 0.2 % (0.2-1.2); Eosinophils Absolute Auto 0.1 K/mm3 (0-0.3); Eosinophils Percent Auto 0.3 % (0-4.4); Hematocrit 29.5 % (42.0-52.0); Hemoglobin 9.8 g/dL (14.0-18.0); Immature Granulocyte Absolute 0.14 K/mm3 (0.00-0.031); Immature Granulocyte Percent A 0.6 % (0-0.5); Lymphocytes Absolute Auto 1.39 K/mm3 (0.9-3.2); Lymphocytes Percent Auto 6.3 % (18.3-44.2); Mean Corpuscular HGB Conc 33.2 g/dl (32-36); Mean Corpuscular Hemoglobin 30.5 pg (26-34); Mean Corpuscular Volume 91.9 fl (80-100); Mean Platelet Volume 9.9 fl (7.4-10.4); Monocytes Absolute Auto 1.1 K/mm3 (0.1-0.6); Monocytes Percent Auto 4.9 % (2.6-8.5); Neutrophils Absolute Auto 19.5 K/mm3 (1.3-6.7); Neutrophils Percent Auto 87.7 % (45.5-73.1); Platelet Count Result 177 k/mm3 (150-375); Red Blood Count 3.21 M/mm3 (4.6-6.20); Red Cell Distribution Width 13.8 % (11.5-14.5); White Blood Count 22.2 K/mm3 (4.5-10.0)
[2023-06-15 21:29] LABS: Lactic Acid Reflex 1.3 mmol/L (0.7-2.0)
[2023-06-15 21:30] LABS: INR 1.4
[2023-06-15 21:31] LABS: Partial Thromboplastin Time 38.9 SECONDS (22.3-36.8)
[2023-06-15 21:32] LABS: Alanine Aminotransferase 25 U/L (6-50); Albumin Level 3.3 g/dL (3.5-5.1); Alkaline Phosphatase 78 U/L (38-126); Anion Gap 5 mmol/L (8-16); Aspartate Amino Transferase 27 U/L (17-59); Bilirubin,Total 0.9 mg/dL (0.2-1.3); Blood Urea Nitrogen 18 mg/dL (9-20); Calcium 8.4 mg/dL (8.4-10.2); Carbon Dioxide 24 mmol/L (22-30); Chloride 102 mmol/L (98-107); Estimated CRCL calculation 82 ml/min; Estimated Glomerular Filt Rate > 60; Glucose 154 mg/dL (65-110); Potassium 3.5 mmol/L (3.4-5.0); Sodium 131 mmol/L (137-145)
[2023-06-15 21:42] LABS: CRP 15.8 mg/dL (<1.0)
[2023-06-15 22:06] LABS: Appearance Urine Clear (Clear); Bacteria Urine None Seen /hpf; Bilirubin Urine Negative (Negative); Blood Urine Trace (Negative); Color Urine Yellow (Yellow); Glucose Urine UA Negative (Negative); Ketones Urine Negative (Negative); Leukocyte Esterase Ur 1+ LEU/UL (Negative); Need Manual Microscopic Reviewed; Nitrate Urine Negative (Negative); Protein Urine Negative (Negative); RBC Urine 0-2 /hpf (0-2); Specific Grav Ur 1.003 (1.001-1.035); Squamous Epithelial Cell Urine None seen /hpf (Few); Urobilinogen Urine 0.2 mg/dL (<2.0); pH Urine 6.5 (5.0-9.0)
[2023-06-15 22:08] LABS: Add Urine Microscopic? YES
[2023-06-15] MEDS: LACTATED RINGERS 500 ML 999 ML IV CONT (22:28)
--- NOTE | 2023-06-15 23:30 | PC.NURSE ---
notified of pt BP after 2.5 liters of fluid. no new orders at this time
[2023-06-16] VITALS (46 sets, daily range): BP systolic 65–102; BP diastolic 45–73; PULSE 55–96; RESP 11–26; TEMP 35.6–39.5; O2SAT 96–100
--- NOTE | 2023-06-16 00:42 | PC.NURSE ---
VRBO to start on levophed in IV. setting up for central line
[2023-06-16] MEDS: NOREPINEPHRINE 8 MG/D5W 250 ML 8 MG/250 ML BAG 9.38 MG IV CONT (01:00)
[2023-06-16] MEDS: PIPERACILLN/TAZ 3.375GM/NS50ML 3.375 GM/50 ML BAG IVPB (02:25)
[2023-06-16 02:33] LABS: Procalcitonin 1.2 ng/mL
--- NOTE | 2023-06-16 03:25 | ADMGEN ---
This patient, Jw Mccauley, was admitted to Intensive Care Unit-6. Patient/family oriented to hospital policies and general routines including ID bracelet, bed and alarms, visiting hours, pain management, procedures, bathroom and other care routines, personal items, smoking policy, room service/diet, and visiting hours. Information on how to activate the Rapid Response Team has been discussed. Patient/Family are encouraged to report perceived risks to care and to ask questions if they do not understand what they are told or what they should do.
--- NOTE | 2023-06-16 03:46 | PM.IMHP ---
H&P: HPI History of Present Illness Date/Time: 06/16/23 03:46 Chief Complaint: Low blood pressure and fever Narrative: 43-year-old male with a past medical history mild schizophrenia, autism spectrum disorder who was brought in from [facility] facility for elevated white count fever and urinary symptoms. The patient reports that he is just peeing all the time. Denies dysuria and there has not been any witnessed hematuria. Patient cannot give a significant amount history due to some minor communication deficits due to his autism spectrum. Behaviors. In the ER the patient was noted to have a T-max of 101.3. Patient admitted to feeling chilled. He denies having any pain. He otherwise has no complaints. He states that he thinks his last bowel movement was yesterday. He denies any abdominal pain. He is not really happy with the Holden catheter in place. He does have known dental caries but denies any oral pain. He denies difficulty swallowing, nausea or vomiting Review of Systems Review of Systems: Review of systems limited due to patient's psychiatric history an autism spectrum disorder. [facility] Past Medical History Medical History (Updated 06/16/23 @ 08:17 by Dorothy Camarena DO) Autism spectrum disorder GERD (gastroesophageal reflux disease) Hiatal hernia with GERD Large bowel obstruction With what sounds like with due to volvulus Lymphedema of both lower extremities Phimosis of penis Poor dentition requiring referral to dentistry Schizophrenia Surgical History Surgical History (Updated 06/16/23 @ 04:48 by Dorothy Camarena DO) History of circumcision (01/2023) History of esophageal surgery (~2004) History of hemicolectomy 08/21/21, 03/2015 History of incisional hernia repair 08/21/21 History of left hemicolectomy (07/2021) Open left hemicolectomy with colo colonic anastomosis and repair of incisional hernia Dr. Pfeiffer History of resection of large bowel (~2014) Family History Family History Mother , At age 69 CHF (congestive heart failure) Acute myocardial infarction Asthma Father , At age 53 Acute myocardial infarction Diabetes mellitus Hypertension Sibling Asthma Anxiety and depression Grandparent Cerebrovascular accident paternal grandparent late 60's Cancer Other Cancer Social History Social History (Updated 06/16/23 @ 04:50 by Dorothy Camarena, DO) Social History: He lives with his sister and fvocpyn-[id number]. But after recent hospitalization for circumcision January 2023 followed by psychiatric hospitalization in April 2023 the patient has been at acute rehab he has never been . He does not work and is on SSD. He is a lifelong nonsmoker and does not drink alcohol. Code status: Full code Surrogate decision maker: Sister Smoking status: Never smoker Second hand tobacco smoke exposure: No Alcohol intake: never Substance use: never Substance use type: does not use Lack of Transportation: No Lack of Food: Never True Current Housing: I Have Housing Concerned About Future Housing: No Difficulty Paying Gas/Electric Bills: No Difficulty Paying for Meds: No Currently Unemployed: No Education: Don't Know Difficulty w/ Childcare or Family Care: No Living arrangements: with family Spiritual care concerns: No Meds Home Medications and Allergies Home Medications Medication Instructions Recorded Confirmed Type omeprazole 20 mg tablet,delayed 20 mg PO DAILY 11/24/22 06/16/23 History release bisacodyl 10 mg rectal suppository 10 mg RECTAL DAILY PRN Constipation 06/16/23 06/16/23 History diphenhydramine HCl 25 mg tablet 25 mg PO HS PRN Allergy Symptoms 06/16/23 06/16/23 History ibuprofen 400 mg tablet 400 mg PO Q8H PRN Mild Pain (Scale 06/16/23 06/16/23 History Score 1-4) lorazepam 1 mg tablet 1 mg PO TID 06/16/2306/16
[2023-06-16] MEDS: CENTRAL LINE FLUSH 10 ML IV PUSH ×4 (06:01→20:40)
[2023-06-16 06:14] LABS: Basophils Absolute Auto 0.1 K/mm3 (0.0-0.1); Basophils Percent Auto 0.2 % (0.2-1.2); Eosinophils Absolute Auto 0.1 K/mm3 (0-0.3); Eosinophils Percent Auto 0.3 % (0-4.4); Hematocrit 31.3 % (42.0-52.0); Hemoglobin 10.2 g/dL (14.0-18.0); Immature Granulocyte Absolute 0.23 K/mm3 (0.00-0.031); Immature Granulocyte Percent A 0.9 % (0-0.5); Lymphocytes Absolute Auto 1.39 K/mm3 (0.9-3.2); Lymphocytes Percent Auto 5.3 % (18.3-44.2); Mean Corpuscular HGB Conc 32.6 g/dl (32-36); Mean Corpuscular Hemoglobin 30.3 pg (26-34); Mean Corpuscular Volume 92.9 fl (80-100); Mean Platelet Volume 9.2 fl (7.4-10.4); Monocytes Absolute Auto 1.2 K/mm3 (0.1-0.6); Monocytes Percent Auto 4.5 % (2.6-8.5); Neutrophils Absolute Auto 23.4 K/mm3 (1.3-6.7); Neutrophils Percent Auto 88.8 % (45.5-73.1); Platelet Count Result 198 k/mm3 (150-375); Red Blood Count 3.37 M/mm3 (4.6-6.20); White Blood Count 26.4 K/mm3 (4.5-10.0)
[2023-06-16 06:30] LABS: Anion Gap 3 mmol/L (8-16); Blood Urea Nitrogen 12 mg/dL (9-20); Calcium 8.3 mg/dL (8.4-10.2); Carbon Dioxide 25 mmol/L (22-30); Chloride 107 mmol/L (98-107); Estimated CRCL calculation 104 ml/min; Estimated Glomerular Filt Rate > 60; Glucose 126 mg/dL (65-110); Potassium 3.3 mmol/L (3.4-5.0); Sodium 135 mmol/L (137-145)
[2023-06-16] MEDS: QUEtiapine FUMARATE 25 MG TABLET 50 MG PO ×2 (08:25→20:36)
[2023-06-16] MEDS: PIPERACILLIN/TAZ 4.5G/NS 100ML 4.5 GM/100 ML BAG IVPB ×3 (08:26→20:36)
[2023-06-16] MEDS: SENNA/DOCUSATE SODIUM TABLET 2 TAB PO ×2 (08:26→17:37)
[2023-06-16] MEDS: LORazepam (*CRX) 1 MG TABLET PO ×3 (08:26→17:36)
[2023-06-16] MEDS: PANTOPRAZOLE 40 MG TABLET PO (08:26)
[2023-06-16] MEDS: TAMSULOSIN HCL 0.4 MG CAPSULE PO (08:27)
[2023-06-16] MEDS: polyethylene glycoL 3350 17 GM POWD.PACK PO (08:27)
[2023-06-16] MEDS: KCL 40 MEQ/WATER 100 ML 100 ML 25 ML IVPB (08:28)
[2023-06-16] MEDS: SODIUM CHLORIDE 0.9% IV 1,000 ML 100 ML IV CONT ×2 (08:38→20:35)
[2023-06-16] MEDS: ENOXAPARIN 40 MG/0.4 ML SYRINGE SUB-Q (08:49)
--- NOTE | 2023-06-16 08:50 | WPDCNINT ---
Assessment and Plan Assessment and plan (1) Septic shock: Code(s): A41.9 - Sepsis, unspecified organism; R65.21 - Severe sepsis with septic shock Status: Acute Assessment and Plan: Patient presented with hypotension, fevers/chills, increased urinary frequency, elevated WBC count -patient was hypotensive in the ED despite receiving 2.5 L of IV fluids -central line was inserted in the ED -patient was started on Levophed, will maintain MAP > 65 mmHg at all times for adequate end organ perfusion -continue Zosyn and vancomycin (06/16) -06/15: Blood cultures obtained and pending -06/15: Urine cultures obtained and pending (2) UTI (urinary tract infection): Qualifiers: Urinary tract infection type: acute cystitis Hematuria presence: without hematuria Qualified Code(s): N30.00 - Acute cystitis without hematuria Code(s): N39.0 - Urinary tract infection, site not specified Status: Acute Assessment and Plan: Patient with increased urinary frequency, CT scan of the abdomen and pelvis showed diffuse wall thickening of the urinary bladder suspicious for cystitis (3) Ileus: Code(s): K56.7 - Ileus, unspecified Status: Acute Assessment and Plan: 06/16: CT scan of the abdomen and pelvis showed extensive distention of large bowels which could reflect ileus or pseudo-obstruction/[place] syndrome, diffuse wall thickening of the urinary bladder as, suspicious for cystitis, cholelithiasis, minimal left pleural effusion, 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 Patient has a history of bowel obstructions status post hemicolectomy in 2014 and 2020 -surgery has been consulted for extensive distention of large bowel as seen on CT scan as above -patient will be NPO for now (4) Autism spectrum disorder: Code(s): F84.0 - Autistic disorder Status: Acute Assessment and Plan: Chronic (5) GERD (gastroesophageal reflux disease): Qualifiers: Esophagitis presence: esophagitis presence not specified Qualified Code(s): K21.9 - Gastro-esophageal reflux disease without esophagitis Code(s): K21.9 - Gastro-esophageal reflux disease without esophagitis Status: Acute Assessment and Plan: Continue Protonix (6) Electrolyte imbalance: Code(s): E87.8 - Other disorders of electrolyte and fluid balance, not elsewhere classified Status: Acute Assessment and Plan: Hypokalemia, will replace potassium Plan DVT prophylaxis: Lovenox Stress ulcer prophylaxis: Protonix Nutrition: NPO for now Code Status: Full code Critical Care Time Spent: 49 minutes Due to a high probability of clinically significant, life threatening deterioration, the patient required my highest level of preparedness to intervene emergently and I personally spent this critical care time directly and personally managing the patient. This critical care time included obtaining a history; examining the patient; pulse oximetry; ordering and review of studies; arranging urgent treatment with development of a management plan; evaluation of patient's response to treatment; frequent reassessment; and discussions with other providers. It was exclusive of separately billable procedures and treating other patients and teaching time. Please see Assessment and Plan section and the rest of the note for further information on patient assessment and treatment This dictation may have been done utilizing a voice recognition system. Attempts have been made to correct errors. However, there may be uncorrected grammatical, spelling, and recognitions errors present. [employer] Search Marketing Analyst Consult Note Consult date: 06/16/23 Reason for consult: Septic shock, fevers, pseudo-obstruction/[place] syndrome HPI: Jw Mccauley is a 43 year old male past medical history of will disease spectrum disorder, mild schizophrenia, GERD, hiatal hernia, history of bowel obst
[2023-06-16] MEDS: ACETAMINOPHEN 325 MG TABLET 650 MG PO (12:06)
--- NOTE | 2023-06-16 12:17 | PM.CNGS ---
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 Discussed this with the patient and his sister. This could be either an ileus secondary to his urinary tract infection or pseudoobstruction, which could be related to multiple factors. He does have mild hypokalemia, which is being treated. He was also recently started on an atypical antipsychotic, which could be contributing. He has not been on any narcotics recently at the halfway that they are aware of. He is not having any abdominal pain. Lactic acid is normal. There are no diffuse peritoneal signs on exam. No indication for any urgent surgical intervention. Would recommend to continue medical treatment of his sepsis/UTI, and monitor him with serial abdominal exams. He was started on laxatives by the Hospitalist. If this does not start improving with medical management, then neostigmine could be considered if his hypotension improves. (2) Septic shock: Code(s): A41.9 - Sepsis, unspecified organism; R65.21 - Severe sepsis with septic shock Status: Acute Assessment and Plan: Presented with hypotension, fever, leukocytosis, and urinary frequency. [place] to possibly be secondary to UTI. He is currently on vasopressors. He is still febrile. Continue IV antibiotics, IV fluids, and medical management per Supervising Broker/primary service. Blood cultures pending. (3) UTI (urinary tract infection): Qualifiers: Urinary tract infection type: acute cystitis Hematuria presence: without hematuria Qualified Code(s): N30.00 - Acute cystitis without hematuria Code(s): N39.0 - Urinary tract infection, site not specified Status: Acute Assessment and Plan: Presented with urinary frequency and his sister reports history of hematuria and multiple urinary catheterizations over the past few weeks. Continue IV antibiotics. Management per primary service. (4) Electrolyte imbalance: Code(s): E87.8 - Other disorders of electrolyte and fluid balance, not elsewhere classified Status: Acute Assessment and Plan: Mild hypokalemia, replaced with IV KCL. Monitor labs. (5) Schizophrenia: Qualifiers: Schizophrenia type: unspecified Qualified Code(s): F20.9 - Schizophrenia, unspecified Code(s): F20.9 - Schizophrenia, unspecified Status: Acute (6) Autism spectrum disorder: Code(s): F84.0 - Autistic disorder Status: Acute Plan I have discussed the patient's case and plan of care with Dr. Alex. Thank you for allowing us to see the patient in consultation. History of Present Illness Consult details Consult date: 06/16/23 Reason for consult: other ([place] syndrome) Requesting physician: Magalis Garcia MD Narrative: This is a 43-year-old man with a history of autism and schizophrenia, who we have been asked to see in surgical consultation for [place] syndrome. He is a poor historian given his autism, but can answer questions appropriately and provide some of his history. His sister is at the bedside and helps assist in his history, as well as review of the electronic medical record. He previously lived with his sister and was recently discharged to [facility] from [facility] where he was hospitalized about 3 weeks ago. She reports he was hospitalized at [facility] for hallucinations and entering a catatonic state after having COVID. He was having bladder issues and not voiding independently. He was catheterized and discharged with an indwelling urinary catheter. During that hospitalization, she also reports he was constipated and ?impacted?. He had multiple bowel movements and this resolved. During his catatonic state, he was started on Seroquel and Ativan. He has been taking these medications at the nursing
[2023-06-16] MEDS: NOREPINEPHRINE 8 MG/D5W 250 ML 8 MG/250 ML BAG 13.13 MG IV CONT (14:22)
[2023-06-16] MEDS: IBUPROFEN 400 MG TABLET PO (14:22)
[2023-06-17] VITALS (69 sets, daily range): BP systolic 84–119; BP diastolic 49–81; PULSE 51–104; RESP 12–28; TEMP 35.6–38.7; O2SAT 90–100
[2023-06-17] MEDS: NOREPINEPHRINE 8 MG/D5W 250 ML 8 MG/250 ML BAG 20.63 MG IV CONT (02:45)
[2023-06-17] MEDS: PIPERACILLIN/TAZ 4.5G/NS 100ML 4.5 GM/100 ML BAG IVPB ×4 (03:41→20:11)
[2023-06-17 04:54] LABS: Basophils Absolute Auto 0.1 K/mm3 (0.0-0.1); Basophils Percent Auto 0.3 % (0.2-1.2); Eosinophils Absolute Auto 0.3 K/mm3 (0-0.3); Eosinophils Percent Auto 1.7 % (0-4.4); Hematocrit 31.6 % (42.0-52.0); Hemoglobin 10.2 g/dL (14.0-18.0); Immature Granulocyte Absolute 0.12 K/mm3 (0.00-0.031); Immature Granulocyte Percent A 0.7 % (0-0.5); Lymphocytes Absolute Auto 1.24 K/mm3 (0.9-3.2); Lymphocytes Percent Auto 7.3 % (18.3-44.2); Mean Corpuscular HGB Conc 32.3 g/dl (32-36); Mean Corpuscular Hemoglobin 30.2 pg (26-34); Mean Corpuscular Volume 93.5 fl (80-100); Mean Platelet Volume 9.6 fl (7.4-10.4); Monocytes Absolute Auto 0.9 K/mm3 (0.1-0.6); Monocytes Percent Auto 5.1 % (2.6-8.5); Neutrophils Absolute Auto 14.4 K/mm3 (1.3-6.7); Neutrophils Percent Auto 84.9 % (45.5-73.1); Platelet Count Result 222 k/mm3 (150-375); Red Blood Count 3.38 M/mm3 (4.6-6.20); White Blood Count 16.9 K/mm3 (4.5-10.0)
[2023-06-17 05:09] LABS: Lactic Acid Reflex 1.2 mmol/L (0.7-2.0)
[2023-06-17 05:21] LABS: Alanine Aminotransferase 22 U/L (6-50); Albumin Level 2.9 g/dL (3.5-5.1); Alkaline Phosphatase 77 U/L (38-126); Anion Gap 6 mmol/L (8-16); Aspartate Amino Transferase 35 U/L (17-59); Bilirubin,Total 0.8 mg/dL (0.2-1.3); Blood Urea Nitrogen 8 mg/dL (9-20); Calcium 8.1 mg/dL (8.4-10.2); Carbon Dioxide 23 mmol/L (22-30); Chloride 107 mmol/L (98-107); Estimated CRCL calculation 104 ml/min; Estimated Glomerular Filt Rate > 60; Glucose 122 mg/dL (65-110); Lipase 32 U/L (23-300); Magnesium 1.9 mg/dL (1.6-2.3); Phosphorus 2.5 mg/dL (2.5-4.5); Potassium 3.4 mmol/L (3.4-5.0); Sodium 136 mmol/L (137-145)
[2023-06-17] MEDS: CENTRAL LINE FLUSH 10 ML IV PUSH ×4 (06:52→20:11)
[2023-06-17 07:28] LABS: CRP 15.5 mg/dL (<1.0)
--- NOTE | 2023-06-17 09:50 | PM.PNGS ---
Progress Note: A&P Assessment and Plan (1) Ileus: Code(s): K56.7 - Ileus, unspecified Status: Acute Assessment and Plan: Patient most likely has a colonic ileus due to his urinary tract infection and sepsis. Continue supportive management in the ICU and wean pressors as tolerated. He started on pass some flatus but no bowel movements yet. He has no abdominal pain and no nausea. I think we can go ahead and start some clear liquids today as long as these are of no nausea. Potassium was a bit low this morning and potassium supplementation has been ordered already. Would like to keep his potassium around 4.0 if possible. No acute surgical abdomen at this time supportive management. (2) UTI (urinary tract infection): Qualifiers: Urinary tract infection type: acute cystitis Hematuria presence: without hematuria Qualified Code(s): N30.00 - Acute cystitis without hematuria Code(s): N39.0 - Urinary tract infection, site not specified Status: Acute Assessment and Plan: Continue IV antibiotics. (3) Cholelithiasis: Code(s): K80.20 - Calculus of gallbladder without cholecystitis without obstruction Status: Acute Assessment and Plan: Gallstones are incidental. Patient has no right upper quadrant pain. No symptoms of cholecystitis. Subjective Subjective Date/Time Seen: 06/17/23 09:50 Interval history: Patient remains in the ICU on 5 mics of Levophed. Blood pressures been stable. He is awake alert answering questions appropriately. Being treated for sepsis and UTI. He states he is passing some flatus today been having no bowel movement yet. He has been kept NPO. He denies any abdominal pain. Denies any nausea. [place] [address] down to 17,000. Potassium is still low at 3.4 this morning. Exam GI: Other: Abdomen is soft and minimally distended. No tenderness to palpation throughout the abdomen. Objective Data Vital Signs Vital Signs: Vital Signs - 24 hr 06/16/23 10:00 06/16/23 10:00 06/16/23 12:06 Temperature 39.3 C H Pulse Rate 79 80 Respiratory Rate 14 Blood Pressure 98/73 L Pulse Oximetry 97 Oxygen Delivery 06/16/23 12:14 06/16/23 12:00 06/16/23 12:00 Temperature Pulse Rate 87 88 87 Respiratory Rate 14 Blood Pressure 97/65 L Pulse Oximetry 98 98 Oxygen Delivery Room Air 06/16/23 14:22 06/16/23 14:25 06/16/23 14:00 Temperature 39.5 C H 38.4 C H Pulse Rate 95 96 Respiratory Rate 16 Blood Pressure 90/60 L Pulse Oximetry 96 Oxygen Delivery 06/16/23 16:00 06/16/23 16:00 06/16/23 16:00 Temperature 38.8 C H Pulse Rate 81 81 81 Respiratory Rate 19 19 Blood Pressure 93/57 L Pulse Oximetry 97 97 Oxygen Delivery Room Air 06/16/23 18:00 06/16/23 18:00 06/16/23 19:57 Temperature Pulse Rate 75 75 62 Respiratory Rate 20 20 Blood Pressure 96/57 L Pulse Oximetry 97 97 Oxygen Delivery Room Air 06/16/23 20:00 06/16/23 21:00 06/16/23 20:00 Temperature 36.9 C Pulse Rate 62 60 62 Respiratory Rate 19 Blood Pressure 83/54 L 91/62 L 83/54 L Pulse Oximetry 97 Oxygen Delivery 06/16/23 19:00 06/16/23 21:30 06/16/23 20:00 Temperature Pulse Rate 66 57 L 61 Respiratory Rate Blood Pressure 91/55 L 101/63 Pulse Oximetry Oxygen Delivery 06/16/23 22:00 06/16/23 22:00 06/16/23 23:26 Temperature 35.8 C L Pulse Rate 62 59 L 56 L Respiratory Rate 18 18 Blood Pressure 100/65 Pulse Oximetry 98 98 Oxygen Delivery Room Air 06/16/23 23:00 06/17/23 00:00 06/17/23 00:00 Temperature 35.6 C L Pulse Rate 55 L 63 57 L Respiratory Rate 14 Blood Pressure 99/67 L 107/69 107/69 Pulse Oximetry 100 Oxygen Delivery 06/17/23 00:00 06/17/23 02:00 06/17/23 02:00 Temperature 35.7 C L Pulse Rate 51 L 56 L 56 L Respiratory Rate 17 Blood Pressure 108/71 Pulse Oximetry 98 Oxygen Delivery
[2023-06-17] MEDS: KCL 40 MEQ/WATER 100 ML 100 ML 25 ML IVPB (10:17)
[2023-06-17] MEDS: polyethylene glycoL 3350 17 GM POWD.PACK PO (10:19)
[2023-06-17] MEDS: LORazepam (*CRX) 1 MG TABLET PO ×3 (10:20→16:46)
[2023-06-17] MEDS: QUEtiapine FUMARATE 25 MG TABLET 50 MG PO ×2 (10:20→19:43)
[2023-06-17] MEDS: SENNA/DOCUSATE SODIUM TABLET 2 TAB PO ×2 (10:20→16:46)
[2023-06-17] MEDS: TAMSULOSIN HCL 0.4 MG CAPSULE PO (10:20)
[2023-06-17] MEDS: PANTOPRAZOLE 40 MG TABLET PO (10:20)
[2023-06-17] MEDS: ENOXAPARIN 40 MG/0.4 ML SYRINGE SUB-Q (10:20)
--- NOTE | 2023-06-17 10:45 | PC.NURSE ---
Assume care of patient. Report received from Fanny Simpson RN
[2023-06-17] MEDS: ACETAMINOPHEN 325 MG TABLET 650 MG PO ×2 (11:43→19:43)
[2023-06-17 13:10] LABS: Vancomycin Trough 15.6 ug/mL (10.0-20.0)
--- NOTE | 2023-06-17 14:29 | WPDINTPN ---
Progress Note: A&P Assessment and Plan (1) Septic shock: Code(s): A41.9 - Sepsis, unspecified organism; R65.21 - Severe sepsis with septic shock Status: Acute Assessment and Plan: Patient presented with hypotension, fevers/chills, increased urinary frequency, elevated WBC count -patient was hypotensive in the ED despite receiving 2.5 L of IV fluids -central line was inserted in the ED -patient was started on Levophed, will maintain MAP > 65 mmHg at all times for adequate end organ perfusion -continue Zosyn and vancomycin (06/16) -06/15: Blood cultures no growth x2 -06/15: Urine cultures no growth (2) UTI (urinary tract infection): Qualifiers: Urinary tract infection type: acute cystitis Hematuria presence: without hematuria Qualified Code(s): N30.00 - Acute cystitis without hematuria Code(s): N39.0 - Urinary tract infection, site not specified Status: Acute Assessment and Plan: Patient with increased urinary frequency, CT scan of the abdomen and pelvis showed diffuse wall thickening of the urinary bladder suspicious for cystitis (3) Ileus: Code(s): K56.7 - Ileus, unspecified Status: Acute Assessment and Plan: 06/16: CT scan of the abdomen and pelvis showed extensive distention of large bowels which could reflect ileus or pseudo-obstruction/Greg syndrome, diffuse wall thickening of the urinary bladder as, suspicious for cystitis, cholelithiasis, minimal left pleural effusion, 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 Patient has a history of bowel obstructions status post hemicolectomy in 2014 and 2020 - appreciate surgical evaluation and recommendation -surgery has started patient on clear liquid diet (4) Autism spectrum disorder: Code(s): F84.0 - Autistic disorder Status: Acute Assessment and Plan: Chronic (5) GERD (gastroesophageal reflux disease): Qualifiers: Esophagitis presence: esophagitis presence not specified Qualified Code(s): K21.9 - Gastro-esophageal reflux disease without esophagitis Code(s): K21.9 - Gastro-esophageal reflux disease without esophagitis Status: Acute Assessment and Plan: Continue Protonix (6) Electrolyte imbalance: Code(s): E87.8 - Other disorders of electrolyte and fluid balance, not elsewhere classified Status: Acute Assessment and Plan: Hypokalemia, will replace potassium Plan DVT prophylaxis: Lovenox Stress ulcer prophylaxis: Protonix Nutrition: NPO for now Code Status: Full code Critical Care Time Spent: 33 minutes Due to a high probability of clinically significant, life threatening deterioration, the patient required my highest level of preparedness to intervene emergently and I personally spent this critical care time directly and personally managing the patient. This critical care time included obtaining a history; examining the patient; pulse oximetry; ordering and review of studies; arranging urgent treatment with development of a management plan; evaluation of patient's response to treatment; frequent reassessment; and discussions with other providers. It was exclusive of separately billable procedures and treating other patients and teaching time. Please see Assessment and Plan section and the rest of the note for further information on patient assessment and treatment This dictation may have been done utilizing a voice recognition system. Attempts have been made to correct errors. However, there may be uncorrected grammatical, spelling, and recognitions errors present. Subjective Date/time seen: 06/17/23 14:29 Interval history: Reason for consult: Septic shock, fevers, pseudo-obstruction/[place] syndrome, ileus 06/17/2023: Patient seen and examined the ICU, is awake, alert, in no acute distress. Denies any chest pain, shortness has been abdominal pain, nausea vomiting at this time. Elida
[2023-06-17] MEDS: NOREPINEPHRINE 8 MG/D5W 250 ML 8 MG/250 ML BAG 16.88 MG IV CONT (14:47)
[2023-06-17] MEDS: IBUPROFEN 400 MG TABLET PO (19:44)
--- NOTE | 2023-06-17 23:24 | ED.MALEGU ---
HPI - Male Genitourinary General Chief complaint: Urogenital-Male Stated complaint: UTI S/S Time Seen by Provider: 06/15/23 21:29 Source: patient, family (sister and brother in law) and other (nursign home documentation) History of Present Illness HPI Narrative: Patient previously living with sister and bro-in-law who provide additional history. Pt has history of autism but generally autonomous and independent. 4 weeks ago he had COVID, cough with phelgm. He then became nearly catatonic alternating with aggression. He was sent to [facility] for Behavioral health evaluation and, while hospitalized there, ran a low 100F temperature a few times. He was started on new psych meds, Ativan and Seroquel, the latter of which had a dose increase. He had required a Holden due to urinary retention (1200mL) that was indwelling for approximately 1 week and then removed approximately 1 week ago[address] While in place, they occasionally noted red/orange urine in collection bag at [facility]. 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 They note his blood pressure usually runs low, they believe approximately 95/70. Patient has been at [facility] since 06/04/23 given loss of some ADLs during recent hospitalization. Starting on Wednesday, they note he seemed more panicky, texting them frequently. Per documentation, he had a temp of 101.5 at 1830 for which he was given 400mg ibuprofen at 1835. Holden had been removed 06/08/23 per documentation. Concern for UTI on 06/14 so started Keflex 500mg per [facility] documentation after obtaining UA and bloodwork. UA results today 06/15 cloudy with 1+ blood, 1+ protein, 500 LE, 6-10 RBC, >50 WBC, 1+ bacteria. WBC 17.9, Hgb 10.4 (neut 86.5%); Cr 1.0. Patient denies any chest pain or abdominal pain. Related Data Home Medications Medication Instructions Recorded Confirmed omeprazole 20 mg tablet,delayed 20 mg PO DAILY 11/24/22 06/16/23 release bisacodyl 10 mg rectal suppository 10 mg RECTAL DAILY PRN Constipation 06/16/23 06/16/23 diphenhydramine HCl 25 mg tablet 25 mg PO HS PRN Allergy Symptoms 06/16/23 06/16/23 ibuprofen 400 mg tablet 400 mg PO Q8H PRN Mild Pain (Scale 06/16/23 06/16/23 Score 1-4) lorazepam 1 mg tablet 1 mg PO TID 06/16/23 06/16/23 olanzapine 5 mg tablet 5 mg PO BID PRN Agitation 06/16/23 06/16/23 polyethylene glycol 3350 17 gram 17 g PO DAILY 06/16/23 06/16/23 oral powder packet (Miralax) quetiapine 50 mg tablet 50 mg PO BID 06/16/23 06/16/23 sennosides 8.6 mg-docusate sodium 2 tablet PO BID 06/16/23 06/16/23 50 mg tablet tamsulosin 0.4 mg capsule 0.4 mg PO DAILY 06/16/23 06/16/23 Allergies Allergy/AdvReac Type Severity Reaction Status Date / Time No Known Allergies Allergy Unknown Verified 06/15/23 20:47 [facility] Past Medical History Medical History Autism spectrum disorder GERD (gastroesophageal reflux disease) Hiatal hernia with GERD Large bowel obstruction With what sounds like with due to volvulus Lymphedema of both lower extremities Phimosis of penis Poor dentition requiring referral to dentistry Schizophrenia Surgical History Surgical History History of circumcision (01/2023) History of esophageal surgery (~2004) History of hemicolectomy 08/21/21, 03/2015 History of incisional hernia repair 08/21/21 History of left hemicolectomy (07/2021) Open left hemicolectomy with colo colonic anastomosis and repair of incisional hernia Dr. Pfeiffer History of resection of large bowel (~2014) Family History Family History Mother , At age 69 CHF (congestive heart failure) Acute myocardial infarction Asthma Father , At age 53 Acute myocardial infarction Diabetes mellitus Hypertension Sibling Asthma Anxiety and depression
[2023-06-18] VITALS (61 sets, daily range): BP systolic 85–117; BP diastolic 45–83; PULSE 51–96; RESP 10–99; TEMP 36.3–37.7; O2SAT 96–100
[2023-06-18] MEDS: PIPERACILLIN/TAZ 4.5G/NS 100ML 4.5 GM/100 ML BAG IVPB ×4 (03:00→20:42)
[2023-06-18 05:44] LABS: Basophils Percent Auto 0.4 % (0.2-1.2); Eosinophils Absolute Auto 0.3 K/mm3 (0-0.3); Eosinophils Percent Auto 2.8 % (0-4.4); Hematocrit 30.5 % (42.0-52.0); Hemoglobin 9.9 g/dL (14.0-18.0); Lymphocytes Absolute Auto 1.46 K/mm3 (0.9-3.2); Mean Corpuscular HGB Conc 32.5 g/dl (32-36); Mean Corpuscular Hemoglobin 29.8 pg (26-34); Mean Corpuscular Volume 91.9 fl (80-100); Mean Platelet Volume 9.4 fl (7.4-10.4); Monocytes Absolute Auto 0.6 K/mm3 (0.1-0.6); Monocytes Percent Auto 5.8 % (2.6-8.5); Neutrophils Absolute Auto 7.9 K/mm3 (1.3-6.7); Platelet Count Result 227 k/mm3 (150-375); Red Blood Count 3.32 M/mm3 (4.6-6.20); Red Cell Distribution Width 13.9 % (11.5-14.5); White Blood Count 10.4 K/mm3 (4.5-10.0)
[2023-06-18 05:55] LABS: Alanine Aminotransferase 25 U/L (6-50); Albumin Level 2.9 g/dL (3.5-5.1); Alkaline Phosphatase 77 U/L (38-126); Anion Gap 5 mmol/L (8-16); Aspartate Amino Transferase 28 U/L (17-59); Bilirubin,Total 0.7 mg/dL (0.2-1.3); Blood Urea Nitrogen 7 mg/dL (9-20); CRP 8.9 mg/dL (<1.0); Calcium 8.1 mg/dL (8.4-10.2); Carbon Dioxide 26 mmol/L (22-30); Chloride 101 mmol/L (98-107); Estimated CRCL calculation 92 ml/min; Estimated Glomerular Filt Rate > 60; Glucose 168 mg/dL (65-110); Lactic Acid Reflex 1.2 mmol/L (0.7-2.0); Magnesium 1.8 mg/dL (1.6-2.3); Phosphorus 3.1 mg/dL (2.5-4.5); Potassium 3.3 mmol/L (3.4-5.0); Sodium 132 mmol/L (137-145)
[2023-06-18] MEDS: CENTRAL LINE FLUSH 10 ML IV PUSH ×4 (05:58→20:43)
[2023-06-18] MEDS: NOREPINEPHRINE 8 MG/D5W 250 ML 8 MG/250 ML BAG 20.63 MG IV CONT (07:53)
[2023-06-18] MEDS: MAGNESIUM SULF 2 GM/WATER 50ML 2 GM/50 ML BAG IVPB (07:54)
[2023-06-18] MEDS: POTASSIUM CHLORIDE 20 MEQ PACKET (FOR LIQUID) 40 MEQ PO (07:54)
[2023-06-18] MEDS: QUEtiapine FUMARATE 25 MG TABLET 50 MG PO ×2 (07:54→20:42)
[2023-06-18] MEDS: polyethylene glycoL 3350 17 GM POWD.PACK PO (07:54)
[2023-06-18] MEDS: KCL 40 MEQ/WATER 100 ML 100 ML 25 ML IVPB (07:54)
[2023-06-18] MEDS: ENOXAPARIN 40 MG/0.4 ML SYRINGE SUB-Q (07:55)
[2023-06-18] MEDS: SENNA/DOCUSATE SODIUM TABLET 2 TAB PO (07:55)
[2023-06-18] MEDS: LORazepam (*CRX) 1 MG TABLET PO ×3 (07:55→18:04)
[2023-06-18] MEDS: TAMSULOSIN HCL 0.4 MG CAPSULE PO (07:55)
[2023-06-18] MEDS: PANTOPRAZOLE 40 MG TABLET PO (08:02)
--- NOTE | 2023-06-18 08:40 | PM.PNGS ---
Progress Note: A&P Assessment and Plan (1) Sepsis due to urinary tract infection: Code(s): A41.9 - Sepsis, unspecified organism; N39.0 - Urinary tract infection, site not specified Status: Acute Assessment and Plan: Continue IV antibiotics and management as per medical technologist prn. White blood cell count is decreasing. (2) Ileus: Code(s): K56.7 - Ileus, unspecified Status: Acute Assessment and Plan: Continues to have an ileus due to his sepsis. He did tolerate some clear liquids. Go ahead advanced to full liquids today. Go ahead given suppository as well. His abdominal exam is overall benign. Continue to slowly advance diet as tolerated. Subjective Subjective Date/Time Seen: 06/18/23 08:40 Interval history: Patient remains in the ICU for his urosepsis. He remains on Levophed. To tolerate some clear liquids yesterday. Is passing flatus but has not had a bowel movement. No nausea or vomiting. White blood cell count is down to 10,400 today. Exam GI: Other: Abdomen is soft and minimally distended. No tenderness to palpation. Exam is benign. Objective Data Vital Signs Vital Signs: Vital Signs - 24 hr 06/17/23 10:00 06/17/23 10:00 06/17/23 11:00 Temperature 38.3 C H Pulse Rate 93 81 Respiratory Rate 18 Blood Pressure 106/81 Pulse Oximetry 98 98 Oxygen Delivery Room Air 06/17/23 11:00 06/17/23 11:30 06/17/23 11:43 Temperature 38.6 C H Pulse Rate 93 93 Respiratory Rate Blood Pressure 107/69 95/63 L Pulse Oximetry Oxygen Delivery 06/17/23 11:47 06/17/23 12:00 06/17/23 12:00 Temperature Pulse Rate 88 104 H Respiratory Rate Blood Pressure 95/63 L Pulse Oximetry 98 Oxygen Delivery Room Air 06/17/23 12:00 06/17/23 12:43 06/17/23 13:30 Temperature 38.6 C H 38.4 C H Pulse Rate 96 77 Respiratory Rate 19 Blood Pressure 97/69 L 107/58 L Pulse Oximetry 98 Oxygen Delivery 06/17/23 14:00 06/17/23 14:00 06/17/23 14:47 Temperature 37.7 C H Pulse Rate 75 75 73 Respiratory Rate 24 H Blood Pressure 84/53 L 97/60 L Pulse Oximetry 97 Oxygen Delivery 06/17/23 16:00 06/17/23 16:53 06/17/23 16:00 Temperature 37.6 C H Pulse Rate 69 76 74 Respiratory Rate 18 Blood Pressure 103/62 104/63 Pulse Oximetry 98 Oxygen Delivery 06/17/23 16:00 06/17/23 14:12 06/17/23 18:00 Temperature Pulse Rate 91 Respiratory Rate Blood Pressure Pulse Oximetry 98 96 Oxygen Delivery Room Air Room Air 06/17/23 18:00 06/17/23 18:00 06/17/23 19:43 Temperature 38.1 C H 38.7 C H Pulse Rate 88 91 Respiratory Rate 24 H Blood Pressure 108/54 L 108/54 L Pulse Oximetry 99 Oxygen Delivery 06/17/23 20:00 06/17/23 20:00 06/18/23 00:09 Temperature 38.7 C H Pulse Rate 103 H 103 H 68 Respiratory Rate 25 H Blood Pressure 119/71 86/48 L Pulse Oximetry 99 Oxygen Delivery 06/17/23 20:05 06/18/23 00:10 06/17/23 22:00 Temperature 37.6 C H Pulse Rate 77 Respiratory Rate Blood Pressure Pulse Oximetry 99 Oxygen Delivery Room Air 06/18/23 00:00 06/17/23 10:48 06/17/23 12:30 Temperature 38.3 C H 38.6 C H Pulse Rate 75 92 81 Respiratory Rate 24 H 24 H Blood Pressure Pulse Oximetry 98 90 Oxygen Delivery 06/17/23 16:58 06/17/23 17:00 06/17/23 17:02 Temperature 37.7 C H 37.7 C H 37.7 C H Pulse Rate 88 82 84 Respiratory Rate 20 23 H 18 Blood Pressure 104/68 Pulse Oximetry 98 98 98 Oxygen Delivery 06/17/23 17:15 06/17/23 17:30 06/17/23 17:32 Temperature 37.8 C H 37.9 C H 37.9 C H Pulse Rate 89 80 83 Respiratory Rate 21 H 22 H 22 H Blood Pressure 98/66 L Pulse Oximetry 97 98 98 Oxygen Delivery 06/17/23 17:45 06/17/23 18:00 06/17/23 18:02 Temperature 37.9 C H 38.0 C H 38.0 C H Pulse Rate 87 85 90 Respiratory Rate 17 24 H 22 H Blood Pressure 108/54 L Pulse Oximetry 100 99 100 Oxygen Delivery 06/17/23 18:15 06/17
--- NOTE | 2023-06-18 09:32 | WPDINTPN ---
Progress Note: A&P Assessment and Plan (1) Septic shock: Code(s): A41.9 - Sepsis, unspecified organism; R65.21 - Severe sepsis with septic shock Status: Acute Assessment and Plan: Patient presented with hypotension, fevers/chills, increased urinary frequency, elevated WBC count -patient was hypotensive in the ED despite receiving 2.5 L of IV fluids -central line was inserted in the ED -continues to be on Levophed, will maintain MAP > 65 mmHg at all times for adequate end organ perfusion -lactic acid is normal -continue Zosyn and vancomycin (06/16) -06/15: Blood cultures no growth x2 -06/15: Urine cultures no growth (2) UTI (urinary tract infection): Qualifiers: Urinary tract infection type: acute cystitis Hematuria presence: without hematuria Qualified Code(s): N30.00 - Acute cystitis without hematuria Code(s): N39.0 - Urinary tract infection, site not specified Status: Acute Assessment and Plan: Patient with increased urinary frequency, CT scan of the abdomen and pelvis showed diffuse wall thickening of the urinary bladder suspicious for cystitis -continue antibiotics as (3) Ileus: Code(s): K56.7 - Ileus, unspecified Status: Acute Assessment and Plan: 06/16: CT scan of the abdomen and pelvis showed extensive distention of large bowels which could reflect ileus or pseudo-obstruction/Greg syndrome, diffuse wall thickening of the urinary bladder as, suspicious for cystitis, cholelithiasis, minimal left pleural effusion, 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 Patient has a history of bowel obstructions status post hemicolectomy in 2014 and 2020 - appreciate surgical evaluation and recommendation -surgery increased to full liquid diet (4) Autism spectrum disorder: Code(s): F84.0 - Autistic disorder Status: Acute Assessment and Plan: Chronic (5) GERD (gastroesophageal reflux disease): Qualifiers: Esophagitis presence: esophagitis presence not specified Qualified Code(s): K21.9 - Gastro-esophageal reflux disease without esophagitis Code(s): K21.9 - Gastro-esophageal reflux disease without esophagitis Status: Acute Assessment and Plan: Continue Protonix (6) Electrolyte imbalance: Code(s): E87.8 - Other disorders of electrolyte and fluid balance, not elsewhere classified Status: Acute Assessment and Plan: Hypokalemia, will replace potassium Plan DVT prophylaxis: Lovenox Stress ulcer prophylaxis: Protonix Nutrition: Full liquid diet Code Status: Full code Critical Care Time Spent: 32 minutes Due to a high probability of clinically significant, life threatening deterioration, the patient required my highest level of preparedness to intervene emergently and I personally spent this critical care time directly and personally managing the patient. This critical care time included obtaining a history; examining the patient; pulse oximetry; ordering and review of studies; arranging urgent treatment with development of a management plan; evaluation of patient's response to treatment; frequent reassessment; and discussions with other providers. It was exclusive of separately billable procedures and treating other patients and teaching time. Please see Assessment and Plan section and the rest of the note for further information on patient assessment and treatment This dictation may have been done utilizing a voice recognition system. Attempts have been made to correct errors. However, there may be uncorrected grammatical, spelling, and recognitions errors present. Subjective Date/time seen: 06/18/23 09:32 Interval history: Reason for consult: Septic shock, fevers, pseudo-obstruction/Greg syndrome, ileus 06/18/2023: Patient remains afebrile, is awake, alert, answers to questions follows simple commands, complains of abdominal pain, denie
[2023-06-18] MEDS: BISACODYL 10 MG SUPPOSITORY RECTAL (09:57)
[2023-06-18] MEDS: ALBUMIN HUMAN 25% 25 GM/100 ML 100 ML IVPB ×4 (09:57→23:24)
[2023-06-18] MEDS: SODIUM CHLORIDE 0.9% IV 1,000 ML 999 ML IV CONT (11:00)
--- NOTE | 2023-06-18 11:53 | PM.IMPN ---
Progress Note: A&P Assessment and Plan (1) Septic shock: Code(s): A41.9 - Sepsis, unspecified organism; R65.21 - Severe sepsis with septic shock Status: Acute Assessment and Plan: -continue pressors to maintain bp -continue Zosyn and vancomycin (06/16) -follow cultures (2) UTI (urinary tract infection): Qualifiers: Urinary tract infection type: acute cystitis Hematuria presence: without hematuria Qualified Code(s): N30.00 - Acute cystitis without hematuria Code(s): N39.0 - Urinary tract infection, site not specified Status: Acute Assessment and Plan: continue antibiotics (3) Ileus: Code(s): K56.7 - Ileus, unspecified Status: Acute Assessment and Plan: appreciate surgery input (4) Autism spectrum disorder: Code(s): F84.0 - Autistic disorder Status: Acute Assessment and Plan: Chronic (5) GERD (gastroesophageal reflux disease): Qualifiers: Esophagitis presence: esophagitis presence not specified Qualified Code(s): K21.9 - Gastro-esophageal reflux disease without esophagitis Code(s): K21.9 - Gastro-esophageal reflux disease without esophagitis Status: Acute Assessment and Plan: Continue Protonix (6) Electrolyte imbalance: Code(s): E87.8 - Other disorders of electrolyte and fluid balance, not elsewhere classified Status: Acute Assessment and Plan: Hypokalemia, will replace potassium Plan Subjective Date/time seen: 06/18/23 11:53 Interval history: No new events overnight Exam Narrative: General: Young gentleman in no acute distress HEENT:? Pupils equal and reactive, sclera is clear, very poor dentition, moist mucous membranes Neck:? Supple Respiratory:? Clear to auscultation bilaterally no wheezing, adequate air entry Cardiac:? S1-S2 is normal, regular rate and rhythm Abdomen:? Soft, mildly distended, nontender, hypoactive bowel sounds, tympanic on percussion Extremities:? Bilateral lower extremity edema, palpable pedal pulses Neuro:? Patient is awake, alert oriented. Follows simple commands and answers to questions appropriately Skin:? Warm and dry, no lesions noted Psych:? Flat affect, Objective Data Vital Signs Vital Signs: Vital Signs - 24 hr 06/17/23 12:00 06/17/23 12:00 06/17/23 12:00 Temperature 101.4 F H Pulse Rate 104 H 96 Respiratory Rate 19 Blood Pressure 97/69 L Pulse Oximetry 98 98 Oxygen Delivery Room Air 06/17/23 12:43 06/17/23 13:30 06/17/23 14:00 Temperature 101.2 F H 100 F H Pulse Rate 77 75 Respiratory Rate 24 H Blood Pressure 107/58 L 84/53 L Pulse Oximetry 97 Oxygen Delivery 06/17/23 14:00 06/17/23 14:47 06/17/23 16:00 Temperature 99.7 F H Pulse Rate 75 73 69 Respiratory Rate 18 Blood Pressure 97/60 L 103/62 Pulse Oximetry 98 Oxygen Delivery 06/17/23 16:53 06/17/23 16:00 06/17/23 16:00 Temperature Pulse Rate 76 74 Respiratory Rate Blood Pressure 104/63 Pulse Oximetry 98 Oxygen Delivery Room Air 06/17/23 14:12 06/17/23 18:00 06/17/23 18:00 Temperature 100.5 F H Pulse Rate 91 88 Respiratory Rate 24 H Blood Pressure 108/54 L Pulse Oximetry 96 99 Oxygen Delivery Room Air 06/17/23 18:00 06/17/23 19:43 06/17/23 20:00 Temperature 101.6 F H Pulse Rate 91 103 H Respiratory Rate Blood Pressure 108/54 L Pulse Oximetry Oxygen Delivery 06/17/23 20:00 06/18/23 00:09 06/17/23 20:05 Temperature 101.6 F H Pulse Rate 103 H 68 Respiratory Rate 25 H Blood Pressure 119/71 86/48 L Pulse Oximetry 99 99 Oxygen Delivery Room Air 06/18/23 00:10 06/17/23 22:00 06/18/23 00:00 Temperature 99.7 F H Pulse Rate 77 75 Respiratory Rate Blood Pressure Pulse Oximetry Oxygen Delivery 06/17/23 12:30 06/17/23 16:58 06/17/23 17:00 Temperature 101.4 F H 99.9 F H 99.9 F H Pulse Rate 81 88 82 Respiratory Rate 24
[2023-06-19] VITALS (24 sets, daily range): BP systolic 84–117; BP diastolic 55–76; PULSE 69–107; RESP 12–22; TEMP 36.6–37.3; O2SAT 97–100
[2023-06-19] MEDS: NOREPINEPHRINE 8 MG/D5W 250 ML 8 MG/250 ML BAG 7.5 MG IV CONT (02:11)
[2023-06-19] MEDS: PIPERACILLIN/TAZ 4.5G/NS 100ML 4.5 GM/100 ML BAG IVPB ×4 (02:19→21:04)
[2023-06-19 03:48] LABS: Basophils Percent Auto 0.6 % (0.2-1.2); Eosinophils Absolute Auto 0.3 K/mm3 (0-0.3); Eosinophils Percent Auto 4.6 % (0-4.4); Hematocrit 29.9 % (42.0-52.0); Hemoglobin 9.6 g/dL (14.0-18.0); Immature Granulocyte Absolute 0.06 K/mm3 (0.00-0.031); Immature Granulocyte Percent A 0.9 % (0-0.5); Lymphocytes Absolute Auto 1.88 K/mm3 (0.9-3.2); Mean Corpuscular HGB Conc 32.1 g/dl (32-36); Mean Corpuscular Hemoglobin 29.7 pg (26-34); Mean Corpuscular Volume 92.6 fl (80-100); Mean Platelet Volume 9.2 fl (7.4-10.4); Monocytes Absolute Auto 0.5 K/mm3 (0.1-0.6); Monocytes Percent Auto 7.3 % (2.6-8.5); Neutrophils Absolute Auto 3.9 K/mm3 (1.3-6.7); Neutrophils Percent Auto 58.6 % (45.5-73.1); Platelet Count Result 256 k/mm3 (150-375); Red Blood Count 3.23 M/mm3 (4.6-6.20); Red Cell Distribution Width 13.9 % (11.5-14.5); White Blood Count 6.7 K/mm3 (4.5-10.0)
[2023-06-19 04:03] LABS: Lactic Acid Reflex 1.2 mmol/L (0.7-2.0)
[2023-06-19 04:04] LABS: Alanine Aminotransferase 18 U/L (6-50); Albumin Level 3.9 g/dL (3.5-5.1); Alkaline Phosphatase 64 U/L (38-126); Anion Gap 9 mmol/L (8-16); Aspartate Amino Transferase 21 U/L (17-59); Bilirubin,Total 0.7 mg/dL (0.2-1.3); Blood Urea Nitrogen 6 mg/dL (9-20); CRP 6.2 mg/dL (<1.0); Calcium 8.7 mg/dL (8.4-10.2); Carbon Dioxide 24 mmol/L (22-30); Chloride 104 mmol/L (98-107); Estimated CRCL calculation 82 ml/min; Estimated Glomerular Filt Rate > 60; Glucose 85 mg/dL (65-110); Magnesium 2.1 mg/dL (1.6-2.3); Phosphorus 3.2 mg/dL (2.5-4.5); Potassium 3.8 mmol/L (3.4-5.0); Sodium 137 mmol/L (137-145)
[2023-06-19] MEDS: CENTRAL LINE FLUSH 10 ML IV PUSH ×3 (04:57→21:04)
[2023-06-19] MEDS: OLANZapine 5 MG TABLET PO ×2 (06:26→17:32)
--- NOTE | 2023-06-19 08:37 | WPDINTPN ---
Progress Note: A&P Assessment and Plan (1) Septic shock: Code(s): A41.9 - Sepsis, unspecified organism; R65.21 - Severe sepsis with septic shock Status: Acute Assessment and Plan: Patient presented with hypotension, fevers/chills, increased urinary frequency, elevated WBC count -patient was hypotensive in the ED despite receiving 2.5 L of IV fluids -central line was inserted in the ED -continues to be on Levophed, will maintain MAP > 65 mmHg at all times for adequate end organ perfusion -lactic acid is normal -continue Zosyn and vancomycin (06/16) -06/15: Blood cultures no growth x2 -06/15: Urine cultures no growth (2) UTI (urinary tract infection): Qualifiers: Urinary tract infection type: acute cystitis Hematuria presence: without hematuria Qualified Code(s): N30.00 - Acute cystitis without hematuria Code(s): N39.0 - Urinary tract infection, site not specified Status: Acute Assessment and Plan: Patient with increased urinary frequency, CT scan of the abdomen and pelvis showed diffuse wall thickening of the urinary bladder suspicious for cystitis -continue antibiotics as (3) Ileus: Code(s): K56.7 - Ileus, unspecified Status: Acute Assessment and Plan: 06/16: CT scan of the abdomen and pelvis showed extensive distention of large bowels which could reflect ileus or pseudo-obstruction/Greg syndrome, diffuse wall thickening of the urinary bladder as, suspicious for cystitis, cholelithiasis, minimal left pleural effusion, 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 Patient has a history of bowel obstructions status post hemicolectomy in 2014 and 2020 - appreciate surgical evaluation and recommendation -surgery increased to full liquid diet 06/18: Patient had a bowel movement (4) Autism spectrum disorder: Code(s): F84.0 - Autistic disorder Status: Acute Assessment and Plan: Chronic (5) GERD (gastroesophageal reflux disease): Qualifiers: Esophagitis presence: esophagitis presence not specified Qualified Code(s): K21.9 - Gastro-esophageal reflux disease without esophagitis Code(s): K21.9 - Gastro-esophageal reflux disease without esophagitis Status: Acute Assessment and Plan: Continue Protonix (6) Electrolyte imbalance: Code(s): E87.8 - Other disorders of electrolyte and fluid balance, not elsewhere classified Status: Acute Assessment and Plan: Potassium improved with replacement, will continue to replace, to maintain potassium levels > 4.0 as per surgery recommendations Plan DVT prophylaxis: Lovenox Stress ulcer prophylaxis: Protonix Nutrition: Full liquid diet Code Status: Full code Critical Care Time Spent: 32 minutes Due to a high probability of clinically significant, life threatening deterioration, the patient required my highest level of preparedness to intervene emergently and I personally spent this critical care time directly and personally managing the patient. This critical care time included obtaining a history; examining the patient; pulse oximetry; ordering and review of studies; arranging urgent treatment with development of a management plan; evaluation of patient's response to treatment; frequent reassessment; and discussions with other providers. It was exclusive of separately billable procedures and treating other patients and teaching time. Please see Assessment and Plan section and the rest of the note for further information on patient assessment and treatment This dictation may have been done utilizing a voice recognition system. Attempts have been made to correct errors. However, there may be uncorrected grammatical, spelling, and recognitions errors present. Subjective Date/time seen: 06/19/23 08:37 Interval history: Reason for consult: Septic shock, fevers, pseudo-obstruction/Greg syndrome, ileus 05/31
[2023-06-19] MEDS: polyethylene glycoL 3350 17 GM POWD.PACK PO (09:21)
[2023-06-19] MEDS: QUEtiapine FUMARATE 25 MG TABLET 50 MG PO ×2 (09:21→21:04)
[2023-06-19] MEDS: LORazepam (*CRX) 1 MG TABLET PO ×3 (09:21→17:32)
[2023-06-19] MEDS: SENNA/DOCUSATE SODIUM TABLET 2 TAB PO ×2 (09:21→17:32)
[2023-06-19] MEDS: ENOXAPARIN 40 MG/0.4 ML SYRINGE SUB-Q (09:21)
[2023-06-19] MEDS: BISACODYL 10 MG SUPPOSITORY RECTAL (09:22)
[2023-06-19] MEDS: PANTOPRAZOLE 40 MG TABLET PO (09:22)
[2023-06-19] MEDS: POTASSIUM CHLORIDE 20 MEQ PACKET (FOR LIQUID) PO (09:22)
[2023-06-19] MEDS: KCL 40 MEQ/WATER 100 ML 100 ML 25 ML IVPB (09:22)
[2023-06-19] MEDS: LACTATED RINGERS 1,000 ML 999 ML IV CONT (09:33)
--- NOTE | 2023-06-19 13:18 | PM.IMPN ---
Progress Note: A&P Assessment and Plan (1) Septic shock: Code(s): A41.9 - Sepsis, unspecified organism; R65.21 - Severe sepsis with septic shock Status: Acute Assessment and Plan: -continue pressors to maintain bp -continue Zosyn and vancomycin (06/16) -follow cultures (2) UTI (urinary tract infection): Qualifiers: Urinary tract infection type: acute cystitis Hematuria presence: without hematuria Qualified Code(s): N30.00 - Acute cystitis without hematuria Code(s): N39.0 - Urinary tract infection, site not specified Status: Acute Assessment and Plan: continue antibiotics (3) Ileus: Code(s): K56.7 - Ileus, unspecified Status: Acute Assessment and Plan: appreciate surgery input (4) Autism spectrum disorder: Code(s): F84.0 - Autistic disorder Status: Acute Assessment and Plan: Chronic (5) GERD (gastroesophageal reflux disease): Qualifiers: Esophagitis presence: esophagitis presence not specified Qualified Code(s): K21.9 - Gastro-esophageal reflux disease without esophagitis Code(s): K21.9 - Gastro-esophageal reflux disease without esophagitis Status: Acute Assessment and Plan: Continue Protonix (6) Electrolyte imbalance: Code(s): E87.8 - Other disorders of electrolyte and fluid balance, not elsewhere classified Status: Acute Assessment and Plan: Hypokalemia, will replace potassium Plan Subjective Date/time seen: 06/19/23 13:18 Interval history: patient remains in icu Exam Narrative: General: Young gentleman in no acute distress HEENT:? Pupils equal and reactive, sclera is clear, very poor dentition, moist mucous membranes Neck:? Supple Respiratory:? Clear to auscultation bilaterally no wheezing, adequate air entry Cardiac:? S1-S2 is normal, regular rate and rhythm Abdomen:? Soft, mildly distended, nontender, hypoactive bowel sounds, Extremities:? Bilateral lower extremity edema, palpable pedal pulses Neuro:? Patient is awake, alert oriented. Follows simple commands and answers to questions appropriately Skin:? Warm and dry, no lesions noted Psych:? Flat affect, Objective Data Vital Signs Vital Signs: Vital Signs - 24 hr 06/18/23 13:54 06/18/23 14:51 06/18/23 16:00 Temperature 98.2 F Pulse Rate 67 82 75 Respiratory Rate 15 18 Blood Pressure 107/68 Pulse Oximetry 99 100 Oxygen Delivery Room Air 06/18/23 16:00 06/18/23 16:00 06/18/23 18:00 Temperature 98.7 F Pulse Rate 77 75 96 Respiratory Rate 18 Blood Pressure 117/72 Pulse Oximetry 100 Oxygen Delivery 06/18/23 18:00 06/18/23 18:19 06/18/23 20:00 Temperature 99.3 F Pulse Rate 95 89 Respiratory Rate 18 Blood Pressure 108/70 106/67 Pulse Oximetry 98 Oxygen Delivery Room Air 06/18/23 20:00 06/18/23 20:00 06/18/23 21:25 Temperature 100 F H Pulse Rate 84 88 82 Respiratory Rate 20 Blood Pressure 115/70 109/73 Pulse Oximetry 99 Oxygen Delivery 06/18/23 21:44 06/18/23 22:00 06/18/23 22:00 Temperature 99.8 F H Pulse Rate 75 75 Respiratory Rate 16 Blood Pressure 112/70 103/64 Pulse Oximetry 97 Oxygen Delivery 06/19/23 00:00 06/19/23 00:00 06/19/23 00:00 Temperature 99.1 F Pulse Rate 84 84 Respiratory Rate 22 H Blood Pressure 107/70 Pulse Oximetry 99 Oxygen Delivery Room Air 06/19/23 00:54 06/19/23 01:09 06/19/23 02:11 Temperature Pulse Rate 70 79 76 Respiratory Rate Blood Pressure 106/69 101/62 84/57 L Pulse Oximetry Oxygen Delivery 06/19/23 02:00 06/19/23 02:14 06/19/23 02:00 Temperature 98.8 F Pulse Rate 70 70 Respiratory Rate 13 Blood Pressure 84/57 L 98/56 L Pulse Oximetry 98 Oxygen Delivery 06/19/23 02:16 06/19/23 04:00 06/19/23 04:00 Temperature 98.8 F Pulse Rate 78 Respiratory Rate 17 Blood Pressure 95/55 L 109/70 Pulse Oximetry 99 Oxyg
--- NOTE | 2023-06-19 14:13 | PM.PNGS ---
Progress Note: A&P Assessment and Plan (1) Ileus: Code(s): K56.7 - Ileus, unspecified Status: Acute Assessment and Plan: Colonic ileus resolving as he started to have bowel movements. Has been tolerating full liquids. We will go ahead and advance him to regular diet. No concerns for surgical abdomen. Surgery will sign off. Subjective Subjective Date/Time Seen: 06/19/23 14:13 Interval history: Patient remains in the intensive care unit on pressors. His bowel is starting to function now on a had a bowel movement yesterday. He has been tolerating full liquids. Exam GI: Other: Abdomen is soft and nondistended. No tenderness. Abdominal exam is benign. Objective Data Vital Signs Vital Signs: Vital Signs - 24 hr 06/18/23 14:51 06/18/23 16:00 06/18/23 16:00 Temperature 36.8 C 37.1 C Pulse Rate 82 75 77 Respiratory Rate 15 18 18 Blood Pressure 107/68 117/72 Pulse Oximetry 99 100 100 Oxygen Delivery Room Air 06/18/23 16:00 06/18/23 18:00 06/18/23 18:00 Temperature 37.4 C Pulse Rate 75 96 95 Respiratory Rate 18 Blood Pressure 108/70 Pulse Oximetry 98 Oxygen Delivery 06/18/23 18:19 06/18/23 20:00 06/18/23 20:00 Temperature 37.7 C H Pulse Rate 89 84 Respiratory Rate 20 Blood Pressure 106/67 115/70 Pulse Oximetry 99 Oxygen Delivery Room Air 06/18/23 20:00 06/18/23 21:25 06/18/23 21:44 Temperature Pulse Rate 88 82 Respiratory Rate Blood Pressure 109/73 112/70 Pulse Oximetry Oxygen Delivery 06/18/23 22:00 06/18/23 22:00 06/19/23 00:00 Temperature 37.7 C H Pulse Rate 75 75 Respiratory Rate 16 Blood Pressure 103/64 Pulse Oximetry 97 Oxygen Delivery Room Air 06/19/23 00:00 06/19/23 00:00 06/19/23 00:54 Temperature 37.3 C Pulse Rate 84 84 70 Respiratory Rate 22 H Blood Pressure 107/70 106/69 Pulse Oximetry 99 Oxygen Delivery 06/19/23 01:09 06/19/23 02:11 06/19/23 02:00 Temperature 37.1 C Pulse Rate 79 76 70 Respiratory Rate 13 Blood Pressure 101/62 84/57 L 84/57 L Pulse Oximetry 98 Oxygen Delivery 06/19/23 02:14 06/19/23 02:00 06/19/23 02:16 Temperature Pulse Rate 70 Respiratory Rate Blood Pressure 98/56 L 95/55 L Pulse Oximetry Oxygen Delivery 06/19/23 04:00 06/19/23 04:00 06/19/23 04:00 Temperature 37.1 C Pulse Rate 78 78 Respiratory Rate 17 Blood Pressure 109/70 Pulse Oximetry 99 Oxygen Delivery Room Air 06/19/23 04:28 06/19/23 04:44 06/19/23 05:01 Temperature Pulse Rate 69 88 92 Respiratory Rate Blood Pressure 106/73 115/76 103/70 Pulse Oximetry Oxygen Delivery 06/19/23 04:51 06/19/23 06:00 06/19/23 06:30 Temperature 37.3 C Pulse Rate 86 79 Respiratory Rate 17 Blood Pressure 105/73 91/62 L 102/74 Pulse Oximetry 97 Oxygen Delivery 06/19/23 06:00 06/19/23 06:51 06/19/23 08:00 Temperature 37.2 C Pulse Rate 77 79 Respiratory Rate 17 Blood Pressure 110/72 94/63 L Pulse Oximetry 97 Oxygen Delivery 06/19/23 10:00 06/19/23 08:00 06/19/23 12:00 Temperature 37.0 C 36.9 C Pulse Rate 107 H 82 85 Respiratory Rate 18 12 Blood Pressure 117/72 100/66 Pulse Oximetry 97 98 Oxygen Delivery 06/19/23 10:00 06/19/23 12:00 Temperature Pulse Rate 91 75 Respiratory Rate Blood Pressure Pulse Oximetry Oxygen Delivery Intake/Output Intake/Output: Intake & Output 06/16/23 06/17/23 06/18/23 06/19/23 23:59 23:59 23:59 23:59 Intake Total 3440 4260 3920 950 Output Total 3250 3650 5600 1999 Balance 190 231 -8773 -4927 Meds/Results Medications: Active Medications Generic Name Dose Route Start Last Admin Trade Name Freq PRN Reason Stop Dose Admin Acetaminophen 650 mg 06/16/23 11:37 06/17/23 19:43 Acetaminophen 325 Mg Tablet PO 650 mg Q6H PRN Administration Mild Pain (1-3) or Fever Bisacodyl 10 mg 06/16/23 04:38 06/19/23 09:22 [place]
[2023-06-20] VITALS (11 sets, daily range): BP systolic 88–130; BP diastolic 51–71; PULSE 61–110; RESP 12–21; TEMP 35.9–37.4; O2SAT 96–100
[2023-06-20] MEDS: PIPERACILLIN/TAZ 4.5G/NS 100ML 4.5 GM/100 ML BAG IVPB ×4 (03:57→19:59)
[2023-06-20] MEDS: CENTRAL LINE FLUSH 10 ML IV PUSH ×4 (05:46→19:59)
[2023-06-20 05:49] LABS: Basophils Absolute Auto 0.1 K/mm3 (0.0-0.1); Basophils Percent Auto 0.8 % (0.2-1.2); Eosinophils Absolute Auto 0.4 K/mm3 (0-0.3); Eosinophils Percent Auto 5.3 % (0-4.4); Hemoglobin 9.8 g/dL (14.0-18.0); Immature Granulocyte Absolute 0.09 K/mm3 (0.00-0.031); Immature Granulocyte Percent A 1.4 % (0-0.5); Lymphocytes Absolute Auto 1.39 K/mm3 (0.9-3.2); Lymphocytes Percent Auto 21.2 % (18.3-44.2); Mean Corpuscular HGB Conc 32.7 g/dl (32-36); Mean Corpuscular Hemoglobin 30.3 pg (26-34); Mean Corpuscular Volume 92.9 fl (80-100); Mean Platelet Volume 8.7 fl (7.4-10.4); Monocytes Absolute Auto 0.5 K/mm3 (0.1-0.6); Monocytes Percent Auto 8.1 % (2.6-8.5); Neutrophils Absolute Auto 4.2 K/mm3 (1.3-6.7); Neutrophils Percent Auto 63.2 % (45.5-73.1); Platelet Count Result 257 k/mm3 (150-375); Red Blood Count 3.23 M/mm3 (4.6-6.20); Red Cell Distribution Width 13.8 % (11.5-14.5); White Blood Count 6.6 K/mm3 (4.5-10.0)
[2023-06-20 06:02] LABS: Alanine Aminotransferase 18 U/L (6-50); Albumin Level 3.3 g/dL (3.5-5.1); Alkaline Phosphatase 57 U/L (38-126); Anion Gap 7 mmol/L (8-16); Aspartate Amino Transferase 28 U/L (17-59); Bilirubin,Total 0.6 mg/dL (0.2-1.3); Blood Urea Nitrogen 10 mg/dL (9-20); Calcium 8.6 mg/dL (8.4-10.2); Carbon Dioxide 25 mmol/L (22-30); Chloride 104 mmol/L (98-107); Estimated CRCL calculation 82 ml/min; Estimated Glomerular Filt Rate > 60; Glucose 86 mg/dL (65-110); Phosphorus 2.9 mg/dL (2.5-4.5); Potassium 3.8 mmol/L (3.4-5.0); Sodium 136 mmol/L (137-145)
--- NOTE | 2023-06-20 08:18 | WPDINTPN ---
Progress Note: A&P Assessment and Plan (1) Septic shock: Code(s): A41.9 - Sepsis, unspecified organism; R65.21 - Severe sepsis with septic shock Status: Acute Assessment and Plan: Patient presented with hypotension, fevers/chills, increased urinary frequency, elevated WBC count -patient was hypotensive in the ED despite receiving 2.5 L of IV fluids -central line was inserted in the ED -OFF Levophed, will maintain MAP > 65 mmHg at all times for adequate end organ perfusion -started on midodrine -lactic acid is normal -continue Zosyn and vancomycin (06/16) -06/15: Blood cultures no growth x2 -06/15: Urine cultures no growth (2) UTI (urinary tract infection): Qualifiers: Hematuria presence: without hematuria Urinary tract infection type: acute cystitis Qualified Code(s): N30.00 - Acute cystitis without hematuria Code(s): N39.0 - Urinary tract infection, site not specified Status: Acute Assessment and Plan: Patient with increased urinary frequency, CT scan of the abdomen and pelvis showed diffuse wall thickening of the urinary bladder suspicious for cystitis -continue antibiotics as above (3) Ileus: Code(s): K56.7 - Ileus, unspecified Status: Acute Assessment and Plan: 06/16: CT scan of the abdomen and pelvis showed extensive distention of large bowels which could reflect ileus or pseudo-obstruction/Greg syndrome, diffuse wall thickening of the urinary bladder as, suspicious for cystitis, cholelithiasis, minimal left pleural effusion, 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 Patient has a history of bowel obstructions status post hemicolectomy in 2014 and 2020 - appreciate surgical evaluation and recommendation -surgery increased to regular diet, no concerns surgical abdominal -patient continues to bowel movements (4) Autism spectrum disorder: Code(s): F84.0 - Autistic disorder Status: Acute Assessment and Plan: Chronic (5) GERD (gastroesophageal reflux disease): Qualifiers: Esophagitis presence: esophagitis presence not specified Qualified Code(s): K21.9 - Gastro-esophageal reflux disease without esophagitis Code(s): K21.9 - Gastro-esophageal reflux disease without esophagitis Status: Acute Assessment and Plan: Continue Protonix (6) Electrolyte imbalance: Code(s): E87.8 - Other disorders of electrolyte and fluid balance, not elsewhere classified Status: Acute Assessment and Plan: Potassium improved with replacement, will continue to replace, to maintain potassium levels > 4.0 as per surgery recommendations Plan DVT prophylaxis: Lovenox Stress ulcer prophylaxis: Protonix Nutrition: Regular diet Will order PT/OT Code Status: Full code Critical Care Time Spent: 32 minutes Due to a high probability of clinically significant, life threatening deterioration, the patient required my highest level of preparedness to intervene emergently and I personally spent this critical care time directly and personally managing the patient. This critical care time included obtaining a history; examining the patient; pulse oximetry; ordering and review of studies; arranging urgent treatment with development of a management plan; evaluation of patient's response to treatment; frequent reassessment; and discussions with other providers. It was exclusive of separately billable procedures and treating other patients and teaching time. Please see Assessment and Plan section and the rest of the note for further information on patient assessment and treatment This dictation may have been done utilizing a voice recognition system. Attempts have been made to correct errors. However, there may be uncorrected grammatical, spelling, and recognitions errors present. Subjective Date/time seen: 06/20/23 08:18 Interval history: Reason for consult: Septic shock,
[2023-06-20] MEDS: QUEtiapine FUMARATE 25 MG TABLET 50 MG PO ×2 (08:48→19:59)
[2023-06-20] MEDS: LORazepam (*CRX) 0.5 MG TABLET PO (08:48)
[2023-06-20] MEDS: MIDODRINE HCL 10 MG TABLET PO ×3 (08:48→16:30)
[2023-06-20] MEDS: PANTOPRAZOLE 40 MG TABLET PO (08:48)
[2023-06-20] MEDS: SENNA/DOCUSATE SODIUM TABLET 2 TAB PO ×2 (08:48→16:30)
[2023-06-20] MEDS: ENOXAPARIN 40 MG/0.4 ML SYRINGE SUB-Q (08:48)
[2023-06-20] MEDS: polyethylene glycoL 3350 17 GM POWD.PACK PO (08:49)
[2023-06-20] MEDS: KCL 40 MEQ/WATER 100 ML 100 ML 25 ML IVPB (09:22)
[2023-06-20] MEDS: POTASSIUM CHLORIDE 20 MEQ PACKET (FOR LIQUID) PO (09:22)
[2023-06-21] MEDS: PIPERACILLIN/TAZ 4.5G/NS 100ML 4.5 GM/100 ML BAG IVPB ×4 (03:29→20:07)
[2023-06-21 05:17] LABS: Alanine Aminotransferase 31 U/L (6-50); Albumin Level 3.3 g/dL (3.5-5.1); Alkaline Phosphatase 55 U/L (38-126); Anion Gap 6 mmol/L (8-16); Aspartate Amino Transferase 40 U/L (17-59); Bilirubin,Total 0.7 mg/dL (0.2-1.3); Blood Urea Nitrogen 14 mg/dL (9-20); Calcium 8.5 mg/dL (8.4-10.2); Carbon Dioxide 25 mmol/L (22-30); Chloride 105 mmol/L (98-107); Estimated CRCL calculation 74 ml/min; Estimated Glomerular Filt Rate > 60; Glucose 84 mg/dL (65-110); Magnesium 1.9 mg/dL (1.6-2.3); Phosphorus 3.2 mg/dL (2.5-4.5); Potassium 3.7 mmol/L (3.4-5.0); Sodium 136 mmol/L (137-145)
[2023-06-21 05:28] LABS: Basophils Absolute Auto 0.1 K/mm3 (0.0-0.1); Basophils Percent Auto 0.5 % (0.2-1.2); Eosinophils Absolute Auto 0.3 K/mm3 (0-0.3); Eosinophils Percent Auto 3.5 % (0-4.4); Hematocrit 30.7 % (42.0-52.0); Hemoglobin 9.7 g/dL (14.0-18.0); Immature Granulocyte Absolute 0.19 K/mm3 (0.00-0.031); Lymphocytes Absolute Auto 1.24 K/mm3 (0.9-3.2); Lymphocytes Percent Auto 13.3 % (18.3-44.2); Mean Corpuscular HGB Conc 31.6 g/dl (32-36); Mean Corpuscular Hemoglobin 29.8 pg (26-34); Mean Corpuscular Volume 94.2 fl (80-100); Mean Platelet Volume 9.4 fl (7.4-10.4); Monocytes Absolute Auto 0.5 K/mm3 (0.1-0.6); Monocytes Percent Auto 5.2 % (2.6-8.5); Neutrophils Percent Auto 75.5 % (45.5-73.1); Platelet Count Result 308 k/mm3 (150-375); Red Blood Count 3.26 M/mm3 (4.6-6.20); White Blood Count 9.3 K/mm3 (4.5-10.0)
[2023-06-21 07:17] VITALS: BP 100/52; PULSE 78; RESP 21; TEMP 36; O2SAT 100
[2023-06-21] MEDS: QUEtiapine FUMARATE 25 MG TABLET 50 MG PO ×2 (08:06→20:07)
[2023-06-21] MEDS: SENNA/DOCUSATE SODIUM TABLET 2 TAB PO ×2 (08:06→16:58)
[2023-06-21] MEDS: PANTOPRAZOLE 40 MG TABLET PO (08:06)
[2023-06-21] MEDS: polyethylene glycoL 3350 17 GM POWD.PACK PO (08:06)
[2023-06-21] MEDS: POTASSIUM CHLORIDE 20 MEQ PACKET (FOR LIQUID) PO (08:06)
[2023-06-21] MEDS: MIDODRINE HCL 10 MG TABLET PO ×3 (08:06→16:58)
[2023-06-21] MEDS: ENOXAPARIN 40 MG/0.4 ML SYRINGE SUB-Q (08:06)
[2023-06-21] MEDS: CENTRAL LINE FLUSH 10 ML IV PUSH ×3 (08:07→20:08)
[2023-06-21 09:22] VITALS: BP 134/60; PULSE 98; RESP 18; TEMP 36.1; O2SAT 100
--- NOTE | 2023-06-21 10:58 | PM.IMPN ---
Progress Note: A&P Assessment and Plan (1) Septic shock: Code(s): A41.9 - Sepsis, unspecified organism; R65.21 - Severe sepsis with septic shock Status: Acute Assessment and Plan: Continue Zosyn. Blood pressure maintained. (2) UTI (urinary tract infection): Qualifiers: Urinary tract infection type: acute cystitis Hematuria presence: without hematuria Qualified Code(s): N30.00 - Acute cystitis without hematuria Code(s): N39.0 - Urinary tract infection, site not specified Status: Acute Assessment and Plan: continue antibiotics (3) Ileus: Code(s): K56.7 - Ileus, unspecified Status: Acute Assessment and Plan: appreciate surgery input (4) Autism spectrum disorder: Code(s): F84.0 - Autistic disorder Status: Acute Assessment and Plan: Chronic (5) GERD (gastroesophageal reflux disease): Qualifiers: Esophagitis presence: esophagitis presence not specified Qualified Code(s): K21.9 - Gastro-esophageal reflux disease without esophagitis Code(s): K21.9 - Gastro-esophageal reflux disease without esophagitis Status: Acute Assessment and Plan: Continue Protonix (6) Electrolyte imbalance: Code(s): E87.8 - Other disorders of electrolyte and fluid balance, not elsewhere classified Status: Acute Assessment and Plan: Monitor Plan Subjective Date/time seen: 06/21/23 10:58 Interval history: Denies complaints Exam Narrative: General: Young gentleman in no acute distress HEENT:? Pupils equal and reactive, sclera is clear, very poor dentition, moist mucous membranes Neck:? Supple Respiratory:? Clear to auscultation bilaterally no wheezing, adequate air entry Cardiac:? S1-S2 is normal, regular rate and rhythm Abdomen:? Soft, mildly distended, nontender, hypoactive bowel sounds, Extremities:? Bilateral lower extremity edema, palpable pedal pulses Neuro:? Patient is awake, alert oriented. Follows simple commands and answers to questions appropriately Skin:? Warm and dry, no lesions noted Psych:? Flat affect, Objective Data Vital Signs Vital Signs: Vital Signs - 24 hr 06/20/23 12:00 06/20/23 12:00 06/20/23 14:00 Temperature 99.4 F Pulse Rate 110 H 108 H 97 Respiratory Rate 19 Blood Pressure 90/71 L Pulse Oximetry 99 Oxygen Delivery 06/20/23 14:00 10/22/23 15:56 06/20/23 18:15 Temperature 97.1 F L Pulse Rate 96 96 88 Respiratory Rate 18 20 14 Blood Pressure 97/69 L 97/69 L 109/56 L Pulse Oximetry 98 100 97 Oxygen Delivery 06/20/23 20:00 06/20/23 21:47 06/21/23 07:17 Temperature 96.6 F L 96.8 F L Pulse Rate 94 78 Respiratory Rate 21 H 21 H Blood Pressure 130/55 L 100/52 L Pulse Oximetry 100 100 Oxygen Delivery Room Air 06/21/23 09:22 Temperature 97.0 F L Pulse Rate 98 Respiratory Rate 18 Blood Pressure 134/60 Pulse Oximetry 100 Oxygen Delivery Intake/Output Intake/Output: Intake & Output 06/18/23 06/19/23 06/20/23 06/21/23 23:59 23:59 23:59 23:59 Intake Total 3920 3470 2605 1040 Output Total 5600 4950 2350 800 Balance -1680 -1480 255 240 Meds/Results Medications: Active Medications Generic Name Dose Route Start Last Admin Trade Name Quanq PRN Reason Stop Dose Admin Acetaminophen 650 mg 06/16/23 11:37 06/17/23 19:43 Acetaminophen 325 Mg Tablet PO 650 mg Q6H PRN Administration Mild Pain (1-3) or Fever Alteplase, Recombinant 2 mg 06/21/23 10:17 Alteplase 2 Mg Vial (Cathflo) IV PUSH ONCE PRN Line Occlusion Bisacodyl 10 mg 06/16/23 04:38 06/19/23 09:22 Bisacodyl 10 Mg Suppository RECTAL 10 mg DAILY PRN Administration Constipation Diphenhydramine HCl 25 mg 06/16/23 04:38 Diphenhydramine Hcl Cap 25 Mg Capsule PO HS PRN Allergy Symptoms Enoxaparin Sodium 40 mg 06/16/23 09:00 06/21/23 08:06 Enoxaparin 40 Mg/0.4 Ml Syringe SUB-Q 40 mg
[2023-06-21] MEDS: ALTEPLASE 2 MG VIAL (CATHFLO) IV PUSH (11:00)
[2023-06-21] MEDS: ACETAMINOPHEN 325 MG TABLET 650 MG PO (13:36)
[2023-06-21 13:56] VITALS: BP 109/56; PULSE 76; RESP 16; TEMP 36.9; O2SAT 98
[2023-06-21 16:06] LABS: Glucose Point of Care 112 mg/dl (65-105)
[2023-06-21 20:40] VITALS: BP 115/67; PULSE 68; RESP 18; TEMP 36.6; O2SAT 98
[2023-06-22] MEDS: PIPERACILLIN/TAZ 4.5G/NS 100ML 4.5 GM/100 ML BAG IVPB ×4 (03:51→20:21)
[2023-06-22 03:59] LABS: Basophils Percent Auto 0.4 % (0.2-1.2); Eosinophils Absolute Auto 0.2 K/mm3 (0-0.3); Eosinophils Percent Auto 2.2 % (0-4.4); Hematocrit 31.5 % (42.0-52.0); Hemoglobin 10.1 g/dL (14.0-18.0); Immature Granulocyte Absolute 0.22 K/mm3 (0.00-0.031); Immature Granulocyte Percent A 2.8 % (0-0.5); Lymphocytes Absolute Auto 1.23 K/mm3 (0.9-3.2); Lymphocytes Percent Auto 15.7 % (18.3-44.2); Mean Corpuscular HGB Conc 32.1 g/dl (32-36); Mean Corpuscular Volume 93.5 fl (80-100); Mean Platelet Volume 8.7 fl (7.4-10.4); Monocytes Absolute Auto 0.5 K/mm3 (0.1-0.6); Monocytes Percent Auto 6.9 % (2.6-8.5); Neutrophils Absolute Auto 5.6 K/mm3 (1.3-6.7); Platelet Count Result 274 k/mm3 (150-375); Red Blood Count 3.37 M/mm3 (4.6-6.20); Red Cell Distribution Width 14.1 % (11.5-14.5); White Blood Count 7.8 K/mm3 (4.5-10.0)
[2023-06-22 04:10] LABS: Alanine Aminotransferase 74 U/L (6-50); Albumin Level 3.5 g/dL (3.5-5.1); Alkaline Phosphatase 60 U/L (38-126); Anion Gap 6 mmol/L (8-16); Aspartate Amino Transferase 91 U/L (17-59); Bilirubin,Total 0.5 mg/dL (0.2-1.3); Blood Urea Nitrogen 12 mg/dL (9-20); Calcium 8.8 mg/dL (8.4-10.2); Carbon Dioxide 25 mmol/L (22-30); Chloride 104 mmol/L (98-107); Estimated CRCL calculation 92 ml/min; Estimated Glomerular Filt Rate > 60; Glucose 93 mg/dL (65-110); Magnesium 1.9 mg/dL (1.6-2.3); Phosphorus 2.7 mg/dL (2.5-4.5); Potassium 3.8 mmol/L (3.4-5.0); Sodium 135 mmol/L (137-145)
[2023-06-22 05:05] VITALS: BP 117/61; PULSE 67; RESP 18; TEMP 36.3; O2SAT 98
[2023-06-22] MEDS: POTASSIUM CHLORIDE 20 MEQ PACKET (FOR LIQUID) PO (08:12)
[2023-06-22] MEDS: MIDODRINE HCL 10 MG TABLET PO ×3 (08:12→17:12)
[2023-06-22] MEDS: polyethylene glycoL 3350 17 GM POWD.PACK PO (08:12)
[2023-06-22] MEDS: QUEtiapine FUMARATE 25 MG TABLET 50 MG PO ×2 (08:12→20:21)
[2023-06-22] MEDS: SENNA/DOCUSATE SODIUM TABLET 2 TAB PO ×2 (08:12→17:13)
[2023-06-22] MEDS: PANTOPRAZOLE 40 MG TABLET PO (08:13)
[2023-06-22] MEDS: CENTRAL LINE FLUSH 10 ML IV PUSH ×2 (08:13→14:38)
[2023-06-22] MEDS: ENOXAPARIN 40 MG/0.4 ML SYRINGE SUB-Q (08:13)
--- NOTE | 2023-06-22 11:40 | PCOTNOTE ---
Patient unavailable for therapy services at this time. Patient has a scheduled zoom MD appointment at this time. Will check back at a later time.
--- NOTE | 2023-06-22 13:12 | PM.IMPN ---
Progress Note: A&P Assessment and Plan (1) Septic shock: Code(s): A41.9 - Sepsis, unspecified organism; R65.21 - Severe sepsis with septic shock Status: Acute Assessment and Plan: Continue Zosyn. Blood pressure maintained. (2) UTI (urinary tract infection): Qualifiers: Urinary tract infection type: acute cystitis Hematuria presence: without hematuria Qualified Code(s): N30.00 - Acute cystitis without hematuria Code(s): N39.0 - Urinary tract infection, site not specified Status: Acute Assessment and Plan: continue antibiotics (3) Ileus: Code(s): K56.7 - Ileus, unspecified Status: Acute Assessment and Plan: appreciate surgery input (4) Autism spectrum disorder: Code(s): F84.0 - Autistic disorder Status: Acute Assessment and Plan: Chronic (5) GERD (gastroesophageal reflux disease): Qualifiers: Esophagitis presence: esophagitis presence not specified Qualified Code(s): K21.9 - Gastro-esophageal reflux disease without esophagitis Code(s): K21.9 - Gastro-esophageal reflux disease without esophagitis Status: Acute Assessment and Plan: Continue Protonix (6) Electrolyte imbalance: Code(s): E87.8 - Other disorders of electrolyte and fluid balance, not elsewhere classified Status: Acute Assessment and Plan: Monitor Plan likely dc in 1-2 days Subjective Date/time seen: 06/22/23 13:12 Interval history: no complaints Exam Narrative: General: Young gentleman in no acute distress HEENT:? Pupils equal and reactive, sclera is clear, very poor dentition, moist mucous membranes Neck:? Supple Respiratory:? Clear to auscultation bilaterally no wheezing, adequate air entry Cardiac:? S1-S2 is normal, regular rate and rhythm Abdomen:? Soft, mildly distended, nontender, hypoactive bowel sounds, Extremities:? Bilateral lower extremity edema, palpable pedal pulses Neuro:? Patient is awake, alert oriented. Follows simple commands and answers to questions appropriately Skin:? Warm and dry, no lesions noted Psych:? Flat affect, Objective Data Vital Signs Vital Signs: Vital Signs - 24 hr 06/21/23 13:56 06/21/23 20:00 06/21/23 20:40 Temperature 98.4 F 98 F Pulse Rate 76 68 Respiratory Rate 16 18 Blood Pressure 109/56 L 115/67 Pulse Oximetry 98 98 Oxygen Delivery Room Air 06/22/23 05:05 06/22/23 08:00 06/22/23 10:43 Temperature 97.4 F L Pulse Rate 67 Respiratory Rate 18 Blood Pressure 117/61 Pulse Oximetry 98 Oxygen Delivery Room Air Room Air Intake/Output Intake/Output: Intake & Output 06/19/23 06/20/23 06/21/23 06/22/23 23:59 23:59 23:59 23:59 Intake Total 3470 2605 2670 580 Output Total 4950 2350 800 Balance -6817 978 9756 580 Meds/Results Medications: Active Medications Generic Name Dose Route Start Last Admin Trade Name Freq PRN Reason Stop Dose Admin Acetaminophen 650 mg 06/16/23 11:37 06/21/23 13:36 Acetaminophen 325 Mg Tablet PO 650 mg Q6H PRN Administration Mild Pain (1-3) or Fever Alteplase, Recombinant 2 mg 06/21/23 10:17 06/21/23 11:00 Alteplase 2 Mg Vial (Cathflo) IV PUSH 2 mg ONCE PRN Administration Line Occlusion Bisacodyl 10 mg 06/16/23 04:38 06/19/23 09:22 Bisacodyl 10 Mg Suppository RECTAL 10 mg DAILY PRN Administration Constipation Diphenhydramine HCl 25 mg 06/16/23 04:38 Diphenhydramine Hcl Cap 25 Mg Capsule PO HS PRN Allergy Symptoms Enoxaparin Sodium 40 mg 06/16/23 09:00 06/22/23 08:13 Enoxaparin 40 Mg/0.4 Ml Syringe SUB-Q 40 mg DAILY ELLA Administration Piperacillin Sod/Tazobactam Sod 4.5 gm in 100 mls @ 200 mls/hr 06/16/23 09:00 06/22/23 08:11 Zosyn 4.5 Gm/Ns 100 Ml IVPB 06/22/23 23:59 200 mls/hr Q6H ELLA Administration Ibuprofen 400 mg 06/16/23 04:38 06/17/23 19:44 Ibuprofen 400 Mg Tablet PO 400 mg Q8
[2023-06-22 14:37] VITALS: BP 111/65; PULSE 69; RESP 18; TEMP 36.6; O2SAT 97
[2023-06-22 20:13] VITALS: BP 124/53; PULSE 65; RESP 16; TEMP 36.4; O2SAT 99
[2023-06-23 05:22] VITALS: BP 124/50; PULSE 69; RESP 16; TEMP 36.5; O2SAT 99
[2023-06-23 05:52] LABS: Estimated CRCL calculation 92 ml/min; Estimated Glomerular Filt Rate > 60
--- NOTE | 2023-06-23 08:24 | PCNWS ---
Weekly nutritional screen. Patient is tolerating current diet with adequate intake. No weight loss reported. No nutritional needs at this time.
[2023-06-23] MEDS: MIDODRINE HCL 10 MG TABLET PO ×2 (09:08→12:45)
[2023-06-23] MEDS: SENNA/DOCUSATE SODIUM TABLET 2 TAB PO (09:08)
[2023-06-23] MEDS: PANTOPRAZOLE 40 MG TABLET PO (09:08)
[2023-06-23] MEDS: QUEtiapine FUMARATE 25 MG TABLET 50 MG PO (09:08)
[2023-06-23] MEDS: polyethylene glycoL 3350 17 GM POWD.PACK PO (09:08)
[2023-06-23] MEDS: POTASSIUM CHLORIDE 20 MEQ PACKET (FOR LIQUID) PO (09:08)
[2023-06-23] MEDS: ENOXAPARIN 40 MG/0.4 ML SYRINGE SUB-Q (09:11)
[2023-06-23] MEDS: LORazepam (*CRX) 0.5 MG TABLET PO (12:45)
--- NOTE | 2023-06-23 13:30 | PM.DS ---
DS: Admitting Diagnosis Discharge Date 06/23/23 Admitting Diagnosis Septic shock DS: Discharge Diagnosis Discharge Diagnosis (1) Sepsis due to urinary tract infection: Code(s): A41.9 - Sepsis, unspecified organism; N39.0 - Urinary tract infection, site not specified Status: Acute DS: Summary Hospital Course Hospital Course: Assessment and Plan (1) Septic shock: ?Code(s): A41.9 - Sepsis, unspecified organism; R65.21 - Severe sepsis with septic shock ?Status:?Acute ?Assessment and Plan: Completed 7 days of Zosyn. Vital signs stable, blood cultures negative. (2) UTI (urinary tract infection): ?Qualifiers: ?Urinary tract infection type:?acute cystitis??Hematuria presence:?without hematuria? Qualified Code(s):?N30.00 - Acute cystitis without hematuria ?Code(s): N39.0 - Urinary tract infection, site not specified ?Status:?Acute ?Assessment and Plan: continue antibiotics (3) Ileus: Resolved. ?Code(s): K56.7 - Ileus, unspecified ?Status:?Acute ?Assessment and Plan: appreciate surgery input (4) Autism spectrum disorder: ?Code(s): F84.0 - Autistic disorder ?Status:?Acute ?Assessment and Plan: Chronic (5) GERD (gastroesophageal reflux disease): ?Qualifiers: ?Esophagitis presence:?esophagitis presence not specified? Qualified Code(s):?K21.9 - Gastro-esophageal reflux disease without esophagitis ?Code(s): K21.9 - Gastro-esophageal reflux disease without esophagitis ?Status:?Acute ?Assessment and Plan: Continue Protonix (6) Electrolyte imbalance: ?Code(s): E87.8 - Other disorders of electrolyte and fluid balance, not elsewhere classified ?Status:?Acute ?Assessment and Plan: Monitor Follow with PCP 3-5 days Time Spent with Patient Time attestation: Total time spent providing and/or coordinating discharge services: DS: Data Data Completed and Pending Labs on day of discharge: Labs from last 24 hours 06/23/23 06/23/23 13:12 05:35 Creatinine 0.80 Estim Creat Clear Calc 92 Estimated GFR > 60 SARS-CoV-2 RNA (RT-PCR) Pending Discharge Plan Discharge Attending physician on discharge: Ander Pedro Consulting providers: Magalis Garcia; Shay Alex Discharging Clinician: Ander Pedro Patient Disposition: SNF Activity: as tolerated Diet: as tolerated Discharge Instructions: Sepsis. Stand Alone Forms: General Discharge Information Discharge Medications: Continued omeprazole 20 mg tablet,delayed release (DR/EC) 20 mg PO DAILY polyethylene glycol 3350 [Miralax] 17 gram Powder In Packet 17 g PO DAILY sennosides-docusate sodium 8.6-50 mg Tablet 2 tablet PO BID olanzapine 5 mg tablet 5 mg PO BID PRN (Reason: Agitation) tamsulosin 0.4 mg capsule 0.4 mg PO DAILY bisacodyl 10 mg Suppository 10 mg RECTAL DAILY PRN (Reason: Constipation) diphenhydramine HCl [Diphenadryl] 25 mg Tablet 25 mg PO HS PRN (Reason: Allergy Symptoms) ibuprofen 400 mg Tablet 400 mg PO Q8H PRN (Reason: Mild Pain (Scale Score 1-4)) lorazepam 1 mg tablet 1 mg PO TID quetiapine 50 mg tablet 50 mg PO BID Date of admission: 06/16/23 01:40 Primary Care Provider: Nnamdi Quintanilla Admitting Provider: Dorothy Camarena Attending physician on admission: Dorothy Camarena Condition: Serious
[2023-06-23 14:04] LABS: SARS-CoV-2 RNA PCR Negative (Negative)
--- NOTE | 2023-06-23 15:01 | PC.NURSE ---
Extra printed packed given to family at discharge.
== END 2023-06-23 14:50 | DRG 871 ==
LOC: ANHED 21:48 → ANHICU 06-16 02:22 → ANH3MED 06-20 18:01
PROVIDERS: Internal Medicine; Admitting Provider Internal Medicine; Emergency Provider Student in an Organized Health Care Education/Training Program; PCP Internal Medicine; Visit Provider Internal Medicine
DX: A41.9 Sepsis, unspecified organism (principal); R65.21 Severe sepsis with septic shock; K56.7 Ileus, unspecified; F84.0 Autistic disorder; N30.90 Cystitis, unspecified without hematuria; K21.9 Gastro-esophageal reflux disease without esophagitis; E87.8 Other disorders of electrolyte and fluid balance, not elsewhere classified; F20.9 Schizophrenia, unspecified; K44.9 Diaphragmatic hernia without obstruction or gangrene; I89.0 Lymphedema, not elsewhere classified; F41.9 Anxiety disorder, unspecified; E87.6 Hypokalemia; N47.1 Phimosis; K80.20 Calculus of gallbladder without cholecystitis without obstruction
CPT/HCPCS: 36415; 36556; 71046; 74177; 80048; 80053; 80202; 81001; 82565; 82948; 83605; 83690; 83735; 84100; 84145; 85025; 85610; 85730; 86140; 87040; 87086; 87088; 87635; 93005; 96361; 96365; 96367; 96368; 96375; 97110; 97116; 97162; 97166; 97530; 97535; 99285; A9270; C1751; J0696; J1650; J2543; J2997; J3370; J3475; J3480; J7030; J7120; P9047; Q9967

== ENCOUNTER 2023-07-05 08:35 | Outpatient (CLI) | payer MEDICARE, MEDICAID, SELFPAY ==
[2023-07-05 19:20] LABS: Basophils Percent Auto 1.1 % (0.2-1.2); Eosinophils Absolute Auto 0.1 K/mm3 (0-0.3); Eosinophils Percent Auto 2.7 % (0-4.4); Hematocrit 35.4 % (42.0-52.0); Hemoglobin 11.3 g/dL (14.0-18.0); Immature Granulocyte Absolute 0.01 K/mm3 (0.00-0.031); Immature Granulocyte Percent A 0.3 % (0-0.5); Immature Reticulocyte Fraction 8.8 % (3.0-15.9); Lymphocytes Absolute Auto 1.28 K/mm3 (0.9-3.2); Lymphocytes Percent Auto 34.2 % (18.3-44.2); Mean Corpuscular HGB Conc 31.9 g/dl (32-36); Mean Corpuscular Hemoglobin 30.5 pg (26-34); Mean Corpuscular Volume 95.4 fl (80-100); Mean Platelet Volume 10.7 fl (7.4-10.4); Monocytes Absolute Auto 0.4 K/mm3 (0.1-0.6); Monocytes Percent Auto 9.6 % (2.6-8.5); Neutrophils Percent Auto 52.1 % (45.5-73.1); Platelet Count Result 260 k/mm3 (150-375); Red Blood Count 3.71 M/mm3 (4.6-6.20); Red Cell Distribution Width 15.4 % (11.5-14.5); Reticulocyte Percent 2.15 % (0.7-4.3); Reticulocytes Absolute 0.08 M/mm3 (0.02-0.1); White Blood Count 3.7 K/mm3 (4.5-10.0)
[2023-07-05 20:50] LABS: Alanine Aminotransferase 29 U/L (6-50); Albumin Level 4.3 g/dL (3.5-5.1); Alkaline Phosphatase 67 U/L (38-126); Anion Gap 7 mmol/L (8-16); Aspartate Amino Transferase 59 U/L (17-59); Bilirubin,Total 0.7 mg/dL (0.2-1.3); Blood Urea Nitrogen 16 mg/dL (9-20); Carbon Dioxide 29 mmol/L (22-30); Chloride 100 mmol/L (98-107); Estimated Glomerular Filt Rate > 60; Glucose 89 mg/dL (65-110); Potassium 3.9 mmol/L (3.4-5.0); Sodium 136 mmol/L (137-145)
[2023-07-05 20:58] LABS: Appearance Urine Clear (Clear); Bacteria Urine None Seen /hpf; Bilirubin Urine Negative (Negative); Blood Urine Negative (Negative); Color Urine Yellow (Yellow); Glucose Urine UA Negative (Negative); Ketones Urine Negative (Negative); Leukocyte Esterase Ur Trace LEU/UL (NEGATIVE); Need Manual Microscopic Reviewed; Nitrate Urine Negative (Negative); Non Pathogenic Casts 0-2; Protein Urine Negative (Negative); RBC Urine 0-2 /hpf (0-2); Specific Grav Ur 1.004 (1.001-1.035); Squamous Epithelial Cell Urine None seen /hpf (Few); Urobilinogen Urine 0.2 mg/dL (<2.0); WBC Urine 0-5 /hpf (0-3)
[2023-07-05 21:00] LABS: Add Urine Microscopic? YES
[2023-07-05 21:21] LABS: Prostate Specific Antigen 3.2 ng/mL (< OR = 4.0)
[2023-07-05 21:56] LABS: Folic Acid 10.8 ng/mL (2.76->20)
== END 2023-07-05 08:36 | disposition home or self-care (01) ==
PROVIDERS: PCP Internal Medicine; Visit Provider Internal Medicine
DX: K56.609 Unspecified intestinal obstruction, unspecified as to partial versus complete obstruction (principal); D72.829 Elevated white blood cell count, unspecified; D64.9 Anemia, unspecified; E87.1 Hypo-osmolality and hyponatremia; N39.0 Urinary tract infection, site not specified; D62 Acute posthemorrhagic anemia
CPT/HCPCS: 36415; 80053; 81001; 82607; 82728; 82746; 84153; 85025; 85046

== ENCOUNTER 2023-10-04 08:18 | Outpatient (CLI) | payer MEDICARE, MEDICAID, SELFPAY ==
[2023-10-04 13:46] LABS: Appearance Urine Clear (Clear); Bacteria Urine None Seen /hpf; Bilirubin Urine Negative (Negative); Blood Urine 1+ (Negative); Color Urine Yellow (Yellow); Glucose Urine UA Negative (Negative); Ketones Urine Negative (Negative); Leukocyte Esterase Ur 1+ LEU/UL (NEGATIVE); Nitrate Urine Negative (Negative); Non Pathogenic Casts 0-2; Protein Urine Negative (Negative); Specific Grav Ur 1.012 (1.001-1.035); Squamous Epithelial Cell Urine Occasional /hpf (Few); Urobilinogen Urine 0.2 mg/dL (<2.0)
[2023-10-04 13:53] LABS: Add Urine Microscopic? YES
== END 2023-10-04 08:19 | disposition home or self-care (01) ==
LOC: ANHGOSHLAB 08:20
PROVIDERS: PCP Internal Medicine; Visit Provider Internal Medicine
DX: R30.0 Dysuria (principal)
CPT/HCPCS: 81001; 87086

== ENCOUNTER 2023-10-13 08:58 | Outpatient (NON) | payer MEDICARE, MEDICAID, SELFPAY | END 2023-10-13 08:59 | disposition home or self-care (01) | PROVIDERS: PCP Internal Medicine; Visit Provider Internal Medicine | DX: A41.9 Sepsis, unspecified organism (principal); R65.21 Severe sepsis with septic shock | CPT/HCPCS: 87086 ==